=== PATIENT | male | born 1945 | race Caucasian/White ===

== ENCOUNTER 2017-05-02 08:02 | Inpatient (IN) | payer OTHER ==
--- NOTE | 2017-05-02 08:53 | PDOC ---
History of Present Illness - General Chief Complaint: Edema Stated Complaint: SWELLING Time Seen by Provider: 05/02/17 08:51 History Source: Patient Exam Limitations: No Limitations - History of Present Illness Initial Comments: CHIEF COMPLAINT: 71 y/o male who is a poor historian with PMH HTN, A-fib ( uncontrolled) here for swelling to legs. HISTORY OF PRESENT ILLNESS: The patient admits he is supposed to be on 6 medications (he is not sure what for besides HTN and A-fib) but hasn't taken any of them in 6 months because he is a self-proclaimed "bad patient". His niece informs me she thinks it's been more than 6 months. He is supposed to be on Xarelto for A-fib. The patient states for the past 1 week his left LE has been getting swollen and red. The right LE started swelling yesterday and a large bubble formed, which is essentially why he is here. He states he has to stop after every few steps that he walks but denies SOB? He denies f/c, cough, n/v/d, CP, palpitations, hemoptysis, orthopnea, abd pain, back pain, hematuria, dysuria. The patient quit smoking 40 years ago and does not drink. Primary Physician/Clinical Assistant Professor: Dr. Jones (affiliated with [facility]; patient has not seen in > 1 year) Vital signs on arrival are notable for pulse of 108. REVIEW OF SYSTEMS: GENERAL/CONSTITUTIONAL: No fever/chills. No weakness. No weight change. HEAD, EYES, EARS, NOSE AND THROAT: No change in vision. No ear pain or discharge. No sore throat. CARDIOVASCULAR: No chest pain or shortness of breath. RESPIRATORY: No cough, wheezing, or hemoptysis. GASTROINTESTINAL: No abd pain, nausea, vomiting, diarrhea. GENITOURINARY: No dysuria, frequency, or change in urination. MUSCULOSKELETAL: +LE swelling and redness. No neck or back pain. SKIN: No rash or easy bruising. NEUROLOGIC: No headache, vertigo, loss of consciousness, or loss of sensation. PHYSICAL EXAM: GENERAL: The patient is awake, alert, and fully oriented, in no acute distress. He is ambulatory, morbidly obese, gets winded after speaking 1 sentence. HEAD: Normal with no signs of trauma. ENT: Pupils equal, round and reactive to light, extraocular movements intact, sclera anicteric, conjunctiva clear. Neck supple. LUNGS: Clear to auscultation bilaterally. Normal excursion. No respiratory distress or use of accessory muscles. CV: Rapid and irregular, S1/S2, no MRG. Cap refill < 2 sec. ABDOMEN: Soft, obese, non-tender even to deep palpation, no hepatomegaly or splenomegaly, no masses. EXTREMITIES: Normal range of motion. 2+ pitting edema b/l LEs. 7cm bulla of right, medial, distal LE that popped in the ER and is draining clear fluid. Left LE erythematous with petechia 2/3 up to knee. NEUROLOGICAL: Normal speech, normal gait. CN II-XII grossly intact. PSYCH: Normal mood, normal affect. SKIN: Warm, dry, normal turgor, no rashes or lesions noted. Past History - Past Medical History Allergies/Adverse Reactions: Allergies Allergy/AdvReac Type Severity Reaction Status Date / Time No Known Allergies Allergy Verified 05/02/17 08:35 Home Medications: Ambulatory Orders Unobtainable [Unobtainable] 05/02/17 Cardiac Disorders: Yes (atrial fibrillation) HTN: Yes Hypercholesterolemia: Yes - Surgical History Cardiac Surgery: Yes (cardiac stent) - Psycho/Social/Smoking Cessation Hx Anxiety: No Suicidal Ideation: No Smoking History: Former smoker Have you smoked in the past 12 months: No Information on smoking cessation initiated: No Hx Alcohol Use: No Drug/Substance Use Hx: No Substance Use Type: None *Physical Exam - Vital Signs Last Vital Signs Temp Pulse Resp BP Pulse Ox 98.0 F 108 H 18 158/96 99 05/02/17 08:29 05/02/17 08:29 05/02/17 08:29 05/02/17 08:29 05/02/17 08:29 Heart Score/ECG Review - ECG Intrepretation Comment:: Twelve-lead EKG was performed and reviewed by Dr. Tabor. There atrial fibrillation with rapid ventricular response. Impression: Abnormal twelve-lead EKG (no comparison EKGs) ED Treatment Course - LABORATORY CBC & Chemistry Diagram: 05/02/17 09:47 05/02/17 09:47 Medical Decision Making - Medical Decision Making A/P: 71 y/o male, non compliant with all meds for 6+ months c/o LE edema with bulla. Plan is as follows: 1. EKG 2. Cardiac work up CXR IMPRESSION: Degenerative changes with wedging. Large heart. Elevated troponin Elevated BNP Ordered 100mg SQ lovenox, PO Kdur and IV lasix Will admit for full cardiac work up given poor follow up and unknown prior medical history. Microblogged Hospitalist. SPoke with Kelly Bhardwaj who accepts admission to [facility] for Dr. Bundy Spoke with Dr. Patel, who accepts cardiac consult for Dr. Antonio. *DC/Admit/Observation/Transfer Diagnosis at time of Disposition: Elevated troponin CHF (congestive heart failure) Qualifiers: Congestive heart failure type: unspecified congestive heart failure type Congestive heart failure chronicity: unspecified congestive heart failure chronicity Qualified Code(s): I50.9 - Heart failure, unspecified A-fib Qualifiers: Atrial fibrillation type: chronic Qualified Code(s): I48.2 - Chronic atrial fibrillation - Discharge Dispostion Condition at time of disposition: Stable Admit: Yes - Referrals Referrals: Anand Jones [Primary Care Provider] -
--- NOTE | 2017-05-02 09:06 | PDOC ---
*Physical Exam - Vital Signs Last Vital Signs Temp Pulse Resp BP Pulse Ox 98.0 F 108 H 18 158/96 98 05/02/17 08:29 05/02/17 08:29 05/02/17 08:29 05/02/17 08:29 05/02/17 09:00 ED Treatment Course - LABORATORY CBC & Chemistry Diagram: 05/05/17 19:45 05/05/17 09:37 Medical Decision Making - Medical Decision Making 05/02/17 09:06 Pt seen by the Advanced Practice Provider under my direct supervision Ancillary studies reviewed I agree with plan as outlined by the Advanced Practice Provider TATIANNA Vazquez *DC/Admit/Observation/Transfer Diagnosis at time of Disposition: CHF (congestive heart failure), A-fib, Elevated troponin - Discharge Dispostion Condition at time of disposition: Stable
[2017-05-02 10:03] LABS: BASOPHIL 0.6 % (0-2.0); EOSINOPHIL 0.3 % (0-4.5); MCHC 32.2 g/dl (32.0-35.9); MEAN CELL VOLUME 83.8 fl (80-96); MEAN PLT VOLUME 10.4 fl (7.5-11.1); NEUTROPHILS 82.7 % (42.8-82.8); PLATELET COUNT 121 K/MM3 (134-434); RDW 16.2 % (11.9-15.9); WHITE BLOOD COUNT 9.9 K/mm3 (4.0-10.0)
[2017-05-02 10:18] LABS: INR 1.3 (0.82-1.09); PROTHROMBIN TIME (PATIENT) 14.4 SEC (9.98-11.88)
[2017-05-02 10:25] LABS: ALBUMIN 3.3 g/dl (3.4-5.0); ANION GAP 11 (8-16); BILIRUBIN,TOTAL 2.4 mg/dL (0.2-1.0); CALCIUM 8.9 mg/dL (8.5-10.1); CO2 28 mmol/L (21-32); COCKROFT - GAULT 100.15; CREATININE 1.1 mg/dL (0.7-1.3); GLUCOSE,RANDOM 149 mg/dL (74-106); SGOT/AST 58 U/L (15-37); SGPT/ALT 26 U/L (12-78); TOT PROT 6.7 g/dl (6.4-8.2)
[2017-05-02 10:38] LABS: ALK PHOS 95 U/L (45-117)
[2017-05-02 11:00] LABS: TROPONIN I 0.87 ng/ml (0.00-0.05)
[2017-05-02] MEDS ORDERED: ENOXAPARIN NA (PORCINE) 100 MG/1 ML DISP.SYRIN SQ ONE ×2 (11:00→11:16)
[2017-05-02] MEDS ORDERED: POTASSIUM CHLORIDE TABS 20 MEQ TABLET.ER (FP) PO ONE ×2 (11:15→11:16)
[2017-05-02] MEDS ORDERED: FUROSEMIDE 40 MG/4 ML INJECTABLE VIAL IVPUSH ONE (11:16)
[2017-05-02] MEDS ORDERED: FUROSEMIDE 40 MG/4 ML INJECTABLE VIAL ONE (11:18)
[2017-05-02] MEDS ORDERED: ONDANSETRON 4 MG/2 ML VIAL IVPB PRN (11:20)
[2017-05-02] MEDS ORDERED: ACETAMINOPHEN 325 MG TABLET (FP) PO PRN (11:20)
--- NOTE | 2017-05-02 11:25 | HP ---
CHIEF COMPLAINT: Leg swelling PCP/Tank Farm Operator: Dr. Bridges HISTORY OF PRESENT ILLNESS: This is a 71 year old male with a history of Afib ( previously on Xarelto and Lopressor; has not taken them since 2014), HTN, CAD s/ p one stent at [facility] approx 15 yrs ago, and CHF (unknown type) brought in by his niece and sister for evaluation of left leg redness. The patient reports that he has not seen his PCP/centrifugal drier operator in approximately 1.5 yrs and has not taken any medications for about the same period of time. He notes that he has been experiencing worsening dyspnea on exertion and fatigue , limiting his exercise tolerance to about 1/2 block. He denies chest pain. He has not noticed an increase in his lower extremity edema, but has noticed redness on his left leg (which has been worsening over the past 3 days) and a bulla on his right leg which is now weeping fluid. He denies warmth or tenderness in the legs and denies fevers/chills. ER course was notable for: (1) Atrial fibrillation with RVR at 136 (2) CXR: Cardiomegaly (3) Troponin 0.87 (4) BNP elevated at 8213 Recent Travel: None PAST MEDICAL HISTORY: As above. In addition, states was hospitalized at [facility] 1.5 yrs ago for 13 days for unexplained jaundice. PAST SURGICAL HISTORY: Hernia repair 1990 Social History: Single, lives alone, retired [employer] worker. Independent in ADLs, but believes he needs a "change of situation." Smoking: Quit 40 yrs ago Alcohol: None Allergies No Known Allergies Allergy (Verified 05/02/17 08:35) HOME MEDICATIONS: Home Medications Medication Instructions Recorded Unobtainable [Unobtainable] 05/02/17 REVIEW OF SYSTEMS CONSTITUTIONAL: Absent: fever, chills, diaphoresis, generalized weakness, malaise, loss of appetite, fatigue, 40 lb weight gain in one year HEENT: Absent: rhinorrhea, nasal congestion, throat pain, throat swelling, difficulty swallowing, mouth swelling, ear pain, eye pain, visual changes CARDIOVASCULAR: Absent: chest pain, syncope, palpitations, irregular heart rate, lightheadedness RESPIRATORY: Dyspnea on exertion, decreased exercise tolerance Absent: cough, wheezing, stridor, hemoptysis GASTROINTESTINAL: Absent: abdominal pain, abdominal distension, nausea, vomiting, diarrhea, constipation, melena, hematochezia GENITOURINARY: Absent: dysuria, frequency, urgency, hesitancy, hematuria, flank pain, genital pain MUSCULOSKELETAL: Absent: myalgia, arthralgia, joint swelling, back pain, neck pain SKIN: LLE redness, RLE bulla/weeping HEMATOLOGIC/IMMUNOLOGIC: Absent: easy bleeding, easy bruising, lymphadenopathy, frequent infections ENDOCRINE: Absent: unexplained weight gain, unexplained weight loss, heat intolerance, cold intolerance NEUROLOGIC: Absent: headache, focal weakness or paresthesias, dizziness, unsteady gait, seizure, mental status changes, bladder or bowel incontinence PSYCHIATRIC: Anxiety, insomnia PHYSICAL EXAMINATION Vital Signs - 24 hr 05/02/17 05/02/17 08:29 09:00 Temperature 98.0 F Pulse Rate 108 H Respiratory 18 Rate Blood Pressure 158/96 O2 Sat by Pulse 99 98 Oximetry (%) GENERAL: Awake, alert, and fully oriented, in no acute distress. HEAD: Normal with no signs of trauma. EYES: Pupils equal, round and reactive to light, extraocular movements intact, sclera anicteric, conjunctiva clear. No lid lag. EARS, NOSE, THROAT: Ears normal, nares patent, oropharynx clear without exudates. Moist mucous membranes. NECK: Normal range of motion, supple without lymphadenopathy, JVD, or masses. LUNGS: Breath sounds equal, clear to auscultation bilaterally. No wheezes, and no crackles. No accessory muscle use. HEART: Regular rate and rhythm, normal S1 and S2 without murmur, rub or gallop. ABDOMEN: Soft, nontender, left ventral hernia, reducible. MUSCULOSKELETAL: Normal range of motion at all joints. No bony deformities or tenderness. No CVA tenderness. UPPER EXTREMITIES: 2+ pulses, warm, well-perfused. No cyanosis. No clubbing. No peripheral edema. LOWER EXTREMITIES: 3+ pitting LE edema bilaterally. Blanching, macular, erythematous rash from midfoot to knee on left; mild erythema at posterior calf with weeping bulla on right. Tunneling 0.5 x 1 cm wound to plantar aspect of left great toe. Trace DP pulses bilaterally. NEUROLOGICAL: Cranial nerves II-XII intact. Normal speech. PSYCHIATRIC: Cooperative. Good eye contact. Appropriate mood and affect. SKIN: Warm, dry, normal turgor. Laboratory Results - last 24 hr 05/02/17 05/02/17 05/02/17 09:19 09:47 09:47 WBC 9.9 RBC 5.51 Hgb 14.9 Hct 46.2 MCV 83.8 MCHC 32.2 RDW 16.2 H Plt Count 121 L MPV 10.4 Neutrophils % 82.7 Lymphocytes % 7.1 L Monocytes % 9.3 Eosinophils % 0.3 Basophils % 0.6 INR Sodium 137 Potassium 3.3 L Chloride 98 Carbon Dioxide 28 Anion Gap 11 BUN 26 H Creatinine 1.1 Creat Clearance w eGFR > 60 Random Glucose 149 H Calcium 8.9 Total Bilirubin 2.4 H AST 58 H ALT 26 Alkaline Phosphatase 95 Creatine Kinase 281 Creatine Kinase Index 3.2 CK-MB (CK-2) 9.065 H Troponin I 0.87 H* B-Natriuretic Peptide 8213.10 H Total Protein 6.7 Albumin 3.3 L Blood Type O POSITIVE Antibody Screen Negative 05/02/17 09:47 WBC RBC Hgb Hct MCV MCHC RDW Plt Count MPV Neutrophils % Lymphocytes % Monocytes % Eosinophils % Basophils % INR 1.30 H Sodium Potassium Chloride Carbon Dioxide Anion Gap BUN Creatinine Creat Clearance w eGFR Random Glucose Calcium Total Bilirubin AST ALT Alkaline Phosphatase Creatine Kinase Creatine Kinase Index CK-MB (CK-2) Troponin I B-Natriuretic Peptide Total Protein Albumin Blood Type Antibody Screen ASSESSMENT/PLAN: 71 year old male with fatigue, CONNOLLY, LE edema with superimposed cellulitis, and elevated troponin. Problem List - Problem (1) A-fib Assessment/Plan: -Rate now controlled (130 on presentation, but now around 100 at rest) -Resume metoprolol tartrate 50mg bid -Given Lovenox 100mg sq in ED; resume Xarelto 20mg daily this evening Code(s): I48.91 - UNSPECIFIED ATRIAL FIBRILLATION Qualifiers: Atrial fibrillation type: chronic Qualified Code(s): I48.2 - Chronic atrial fibrillation (2) Elevated troponin Assessment/Plan: -No chest pain; patient presented solely for leg complaints -Suspect may be secondary to decompensated CHF, Afib with RVR -Monitor on telemetry -Serial troponins to rule out NM -ASA 162mg now, 81mg daily -Cardiology evaluation Code(s): R74.8 - ABNORMAL LEVELS OF OTHER SERUM ENZYMES (3) Hypertension Assessment/Plan: -Resume Lisinopril 10mg daily, metoprolol tartrate 50mg bid Code(s): I10 - ESSENTIAL (PRIMARY) HYPERTENSION (4) CHF (congestive heart failure) Assessment/Plan: -Unknown type -Lasix 40mg IVP daily -Strict I/O, daily weights -Sodium-controlled diet -Echocardiogram Code(s): I50.9 - HEART FAILURE, UNSPECIFIED Qualifiers: Congestive heart failure type: unspecified congestive heart failure type Congestive heart failure chronicity: unspecified congestive heart failure chronicity Qualified Code(s): I50.9 - Heart failure, unspecified (5) Foot ulcer Assessment/Plan: -Abx as above -Check HgbA1C -Podiatry evaluation Code(s): L97.509 - NON-PRESSURE CHRONIC ULCER OTH PRT UNSP FOOT W UNSP SEVERITY (6) Cellulitis Assessment/Plan: -WBC within normal limits, afebrile -Ceftriaxone + Vancomycin -U/s to r/o DVT -ID evaluation Code(s): L03.90 - CELLULITIS, UNSPECIFIED (7) Thrombocytopenia Assessment/Plan: -Mild, follow Code(s): D69.6 - THROMBOCYTOPENIA, UNSPECIFIED (8) Urinary tract infection Assessment/Plan: -UA with 27 WBCs -Send culture -Ceftriaxone Code(s): N39.0 - URINARY TRACT INFECTION, SITE NOT SPECIFIED (9) Hypokalemia Assessment/Plan: -Repleted -Follow Code(s): E87.6 - HYPOKALEMIA (10) DVT prophylaxis Assessment/Plan: -Therapeutic AC -PT ADDENDUM 4pm: Repeat trop has trended up to 1.19, possibly consistent with NSTEMI. Will keep on Lovenox 1mg/kg sq bid and re-start Xarelto when resolved. Code(s): JTW2122 - Visit type - Emergency Visit Emergency Visit: Yes ED Registration Date: 05/02/17 Care time: The patient presented to the Emergency Department on the above date and was hospitalized for further evaluation of their emergent condition. - New Patient This patient is new to me today: Yes Date on this admission: 05/07/17 - Critical Care Critical Care patient: No
[2017-05-02] MEDS ORDERED: ASPIRIN COATED 81 MG TABLET.EC PO ONE (11:58)
[2017-05-02] MEDS ORDERED: ASPIRIN 81 MG CHEWABLE TABLETS ONE (11:59)
[2017-05-02] MEDS ORDERED: LISINOPRIL 5 MG TABLET (FP) ONE (12:00)
[2017-05-02] MEDS ORDERED: METOPROLOL TARTRATE 25 MG TABLET (FP) ONE ×2 (12:00→22:13)
[2017-05-02] MEDS: METOPROLOL TARTRATE 25 MG TABLET (FP) PO SCH ×2 (12:03→22:24)
[2017-05-02] MEDS: LISINOPRIL 10 MG TABLET (FP) PO SCH (12:04)
[2017-05-02] MEDS ORDERED: VANCOMYCIN 1,500 MG in DEXTROSE 5%-WATER - 250 ML IVPB SCH (12:15)
[2017-05-02] MEDS ORDERED: diphenhydrAMINE HCL 50 MG CAPSULE PO PRN (12:28)
[2017-05-02] MEDS ORDERED: CEFTRIAXONE 50 ML ONE (12:35)
[2017-05-02] MEDS ORDERED: VANCOMYCIN 1 GRAM (PRE-DOCKED) 250 ML IVPB ONE (12:35)
[2017-05-02] MEDS: CEFTRIAXONE 50 ML IVPB SCH (12:42)
[2017-05-02 12:54] LABS: URINE APPEARANCE CLEAR; URINE BILIRUBIN NEGATIVE (NEGATIVE); URINE COLOR YELLOW; URINE GLUCOSE (UA) NEGATIVE (NEGATIVE); URINE KETONE NEGATIVE (NEGATIVE); URINE NITRITE NEGATIVE (NEGATIVE); URINE UROBILINOGEN 4.0 E.U/dl E.U./dl (0.2-1.0)
[2017-05-02] MEDS ORDERED: VANCOMYCIN 1,500 MG in DEXTROSE 5%-WATER - 500 ML IVPB ONE (13:00)
[2017-05-02 13:12] LABS: URINE BLOOD 1+ (NEGATIVE); URINE LEUK ESTERASE 2+ (NEGATIVE); URINE PROTEIN 1+ (NEGATIVE)
[2017-05-02 13:13] LABS: URINE RBC 11 /hpf (0-3); URINE WBC 27 /hpf (3-5)
[2017-05-02 13:14] LABS: URINE MUCUS RARE
--- NOTE | 2017-05-02 15:29 | EKG ---
Test Reason : Blood Pressure : / mmHG Vent. Rate : 136 BPM Atrial Rate : 097 BPM P-R Int : 000 ms QRS Dur : 082 ms QT Int : 334 ms P-R-T Axes : 000 -14 091 degrees QTc Int : 502 ms ATRIAL FIBRILLATION WITH RAPID VENTRICULAR RESPONSE MINIMAL VOLTAGE CRITERIA FOR LVH, MAY BE NORMAL VARIANT T WAVE ABNORMALITY, CONSIDER LATERAL ISCHEMIA ABNORMAL ECG NO PREVIOUS ECGS AVAILABLE Confirmed by DANIELLE MICHELLE, EUGENE ([id number]) on 05/02/2017 3:29:09 PM Referred By: Confirmed By:EUGENE SANTOS MD
[2017-05-02 16:02] LABS: TROPONIN I 1.19 ng/ml (0.00-0.05)
[2017-05-02] MEDS ORDERED: RIVAROXABAN 20 MG TABLET PO SCH (18:00)
[2017-05-02] MEDS ORDERED: ENOXAPARIN NA (PORCINE) 120 MG/0.8 ML DISP.SYRIN SQ SCH (22:00)
[2017-05-02] MEDS ORDERED: diphenhydrAMINE HCL 25 MG CAPSULE (FP) PO ONE (22:13)
[2017-05-02] MEDS ORDERED: ENOXAPARIN NA (PORCINE) 60 MG/0.6 ML DISP.SYRIN SQ ONE (22:14)
[2017-05-02] MEDS: ENOXAPARIN NA (PORCINE) 120 MG/0.8 ML DISP.SYRIN SQ SCH (22:25)
[2017-05-02 22:39] LABS: TROPONIN I 0.98 ng/ml (0.00-0.05)
[2017-05-03 01:42] VITALS: BMI 39.8
[2017-05-03] MEDS ORDERED: diphenhydrAMINE HCL 25 MG CAPSULE (FP) PO PRN (05:52)
[2017-05-03 07:24] LABS: ALBUMIN 3.3 g/dl (3.4-5.0); ANION GAP 10 (8-16); CALCIUM 8.9 mg/dL (8.5-10.1); CO2 31 mmol/L (21-32); GLUCOSE,RANDOM 108 mg/dL (74-106); MAGNESIUM 1.9 mg/dL (1.8-2.4)
[2017-05-03 07:26] LABS: BASOPHIL 0.7 % (0-2.0); EOSINOPHIL 0.6 % (0-4.5); MCH 27.1 pg (25.7-33.7); MCHC 32.1 g/dl (32.0-35.9); MEAN CELL VOLUME 84.5 fl (80-96); MEAN PLT VOLUME 10.3 fl (7.5-11.1); NEUTROPHILS 78.9 % (42.8-82.8); PLATELET COUNT 113 K/MM3 (134-434); RDW 15.8 % (11.9-15.9); WHITE BLOOD COUNT 7.6 K/mm3 (4.0-10.0)
[2017-05-03 07:29] LABS: ALK PHOS 100 U/L (45-117); BILIRUBIN,TOTAL 2.2 mg/dL (0.2-1.0); CHOLESTEROL 149 mg/dL (50-200); COCKROFT - GAULT 100.4; CREATININE 1.1 mg/dL (0.7-1.3); LDL CHOLESTEROL (ONLY SJRH) 107 mg/dL (5-100); SGOT/AST 46 U/L (15-37); SGPT/ALT 27 U/L (12-78); TOT PROT 6.8 g/dl (6.4-8.2)
[2017-05-03 07:56] LABS: INR 1.3 (0.82-1.09); PROTHROMBIN TIME (PATIENT) 14.4 SEC (9.98-11.88)
[2017-05-03] MEDS ORDERED: ASPIRIN COATED 81 MG TABLET.EC PO SCH (10:00)
[2017-05-03] MEDS ORDERED: FUROSEMIDE 40 MG/4 ML INJECTABLE VIAL IVPUSH SCH (10:00)
--- NOTE | 2017-05-03 10:18 | CONSULT ---
Consult - text type - Consultation Consultation Note: Podiatry Consultation: 71 year old pleasant M presents for admission with LLE swelling/redness and a great toe ulcer. Patient also notes perpetual weeping from the RLE. Patient has not been compliant with medication, hasn't taken his medication for over 1 year. Patient denies having diabetes however he is uncertain. Notes the wound on his RLE started on wednesday, does not recall when his L great toe ulcer began. PMHx: AFib on AC (hasn't taken his AC), CAD s/p stent, HTN, CHF Meds: noted ALL: NKMA MARY: Pedal pulses non-palpable, TG wnl, CFT brisk to all toes bilaterally. There is serous weeping R lower leg without signs of infection, nor probing deep. On the left foot here is a plantar hallux ulcer with fibrotic base, hyperkeratotic borders, probes to capsule, no bone exposed, no purulence, no fluctuance, mild periwound erythema, cellulitis to lower leg, no soft tissue crepitus. Venous duplex: negative DVT WBC: 7.6 Imp: 71 year old M with L great toe ulcer 1. Peripheral vascular studies. +/- vascular evaluation 2. L foot XR, bone scan 3. Rx santyl daily to L great toe 4. Will follow. Thanks for the consult. Kristan Braga DPM
[2017-05-03] MEDS: POTASSIUM CHLORIDE TABS 20 MEQ TABLET.ER (FP) PO SCH (10:25)
[2017-05-03] MEDS: LISINOPRIL 10 MG TABLET (FP) PO SCH (10:25)
[2017-05-03] MEDS: CEFTRIAXONE 50 ML IVPB SCH (10:25)
[2017-05-03] MEDS: METOPROLOL TARTRATE 25 MG TABLET (FP) PO SCH (10:25)
[2017-05-03] MEDS: ENOXAPARIN NA (PORCINE) 120 MG/0.8 ML DISP.SYRIN SQ SCH ×2 (10:26→21:33)
[2017-05-03] MEDS: FUROSEMIDE 40 MG/4 ML INJECTABLE VIAL IVPUSH SCH ×2 (10:26→17:27)
--- NOTE | 2017-05-03 10:41 | PN ---
Progress Note (short form) - Note Progress Note: ID Consult dictated Cellulitis L LE Non- healing L great toe ulcer Chronic venous stasis dermatitis Thrombocytopenia Elevated LFTs Afib Await c/s ESR CRP Podiatry evaluation Empiric cefazolin 2gm IVPB q8h
--- NOTE | 2017-05-03 12:16 | PN ---
Physical Exam: SUBJECTIVE: Patient seen and examined at bed side. Patient mentioned that he is anxious and all the tests he is undergoing now is making him anxious and it is overwhelming. He said he noticed redness of the left lower extremity a couple of days ago, found it to be concerning hence came in to the ED. Denies chest pain, sob, cough, palpitation, abdominal pain, nausea or vomiting. Bowel/Bladder habit normal. Sleep/Appetite decreased since illness. OBJECTIVE: Vital Signs Period Temp Pulse Resp BP Sys/Vásquez Pulse Ox Last 24 Hr 98.1 F-99.0 F 84-103 16-20 130-151/100-107 97-98 GENERAL: Elderly male, sitting in a chair, anxious, is awake, alert, and fully oriented, in no acute distress. HEAD: Normal with no signs of trauma. EYES: EOM intact, no pallor or icterus. ENT: Ears normal, moist mucous membranes. NECK: Supple. LUNGS: Breath sounds equal, clear to auscultation bilaterally, no wheezes, no crackles, no accessory muscle use. HEART: Regular rate and rhythm, S1, S2 without murmur, rub or gallop. ABDOMEN: Ventral hernia, Soft, nontender, nondistended, normoactive bowel sounds , no guarding, no rebound, no hepatosplenomegaly, no masses. UPPER EXTREMITIES: 2+ pulses, warm, well-perfused, no edema. LOWER EXTREMITIES: Right: bandage applied around the ankle, refused to open the bandage Left: Erythema below the knee upto the ankle, mildly tender, blisters +, raised temperature, pulses intact + NEUROLOGICAL: No facial droop, Power upper extremity-5/5; lower extremity- 3/5 B /L; Cranial nerves II through XII grossly intact. Normal speech, gait not observed. PSYCH: Normal mood, normal affect. SKIN: Warm, dry, normal turgor, no rashes or lesions noted Laboratory Results - last 24 hr 05/02/17 05/02/17 05/02/17 12:30 15:31 15:31 WBC RBC Hgb Hct MCV MCHC RDW Plt Count MPV Neutrophils % Lymphocytes % Monocytes % Eosinophils % Basophils % INR Sodium Potassium Chloride Carbon Dioxide Anion Gap BUN Creatinine Creat Clearance w eGFR Random Glucose Hemoglobin A1c % Calcium Magnesium Total Bilirubin AST ALT Alkaline Phosphatase Creatine Kinase 251 CK-MB (CK-2) Rel Index 0.0 Troponin I 1.19 H* D Total Protein Albumin Triglycerides Cholesterol Total LDL Cholesterol HDL Cholesterol Urine Color Yellow Urine Appearance Clear Urine pH 5.0 Ur Specific [place] 1.015 Urine Protein 1+ H Urine Glucose (UA) Negative Urine Ketones Negative Urine Blood 1+ H Urine Nitrite Negative Urine Bilirubin Negative Urine Urobilinogen 4.0 e.u/dl Ur Leukocyte Esterase 2+ H Urine RBC 11 Urine WBC 27 Ur Epithelial Cells Few Urine Mucus Rare 05/02/17 05/03/17 05/03/17 21:45 06:20 06:20 WBC 7.6 RBC 5.49 Hgb 14.9 Hct 46.4 MCV 84.5 MCHC 32.1 RDW 15.8 Plt Count 113 L MPV 10.3 Neutrophils % 78.9 Lymphocytes % 9.4 D Monocytes % 10.4 H Eosinophils % 0.6 D Basophils % 0.7 INR 1.30 H Sodium Potassium Chloride Carbon Dioxide Anion Gap BUN Creatinine Creat Clearance w eGFR Random Glucose Hemoglobin A1c % Calcium Magnesium Total Bilirubin AST ALT Alkaline Phosphatase Creatine Kinase 216 CK-MB (CK-2) Rel Index Troponin I 0.98 H* Total Protein Albumin Triglycerides Cholesterol Total LDL Cholesterol HDL Cholesterol Urine Color Urine Appearance Urine pH Ur Specific [place] Urine Protein Urine Glucose (UA) Urine Ketones Urine Blood Urine Nitrite Urine Bilirubin Urine Urobilinogen Ur Leukocyte Esterase Urine RBC Urine WBC Ur Epithelial Cells Urine Mucus 05/03/17 05/03/17 06:20 06:20 WBC RBC Hgb Hct MCV MCHC RDW Plt Count MPV Neutrophils % Lymphocytes % Monocytes % Eosinophils % Basophils % INR Sodium 138 Potassium 3.5 Chloride 97 L Carbon Dioxide 31 Anion Gap 10 BUN 26 H Creatinine 1.1 Creat Clearance w eGFR > 60 Random Glucose 108 H D Hemoglobin A1c % 7.1 H Calcium 8.9 Magnesium 1.9 Total Bilirubin 2.2 H AST 46 H D ALT 27 Alkaline Phosphatase 100 Creatine Kinase CK-MB (CK-2) Rel Index Troponin I Total Protein 6.8 Albumin 3.3 L Triglycerides 97 Cholesterol 149 Total LDL Cholesterol 107 H HDL Cholesterol 33 L Urine Color Urine Appearance Urine pH Ur Specific [place] Urine Protein Urine Glucose (UA) Urine Ketones Urine Blood Urine Nitrite Urine Bilirubin Urine Urobilinogen Ur Leukocyte Esterase Urine RBC Urine WBC Ur Epithelial Cells Urine Mucus Active Medications Generic Name Dose Route Start Last Admin Trade Name Freq PRN Reason Stop Dose Admin Acetaminophen 650 mg 05/02/17 11:20 Tylenol - PO Q6H PRN FEVER OR PAIN Aspirin 81 mg 05/03/17 10:00 05/03/17 10:25 Ecotrin - PO 81 mg DAILY KENDELL Administration Diphenhydramine HCl 25 mg 05/03/17 05:52 Benadryl - PO HS PRN INSOMNIA Enoxaparin Sodium 120 mg 05/02/17 23:00 05/03/17 10:26 Lovenox - SQ 120 mg BID KENDELL Administration Furosemide 40 mg 05/03/17 10:00 05/03/17 10:26 Lasix Injection - IVPUSH 40 mg BIDLASIX KENDELL Administration Cefazolin Sodium/Dextrose 50 mls @ 100 mls/hr 05/03/17 18:00 Ancef 2 Gm Premixed Ivpb - IVPB Q8H-IV KENDELL Lisinopril 10 mg 05/02/17 11:45 05/03/17 10:25 Prinivil PO 10 mg DAILY KENDELL Administration Metoprolol Tartrate 25 mg 05/02/17 11:45 05/03/17 10:25 Lopressor - PO 25 mg BID KENDELL Administration Ondansetron HCl 4 mg 05/02/17 11:20 Zofran Injection IVPB Q6H PRN NAUSEA Potassium Chloride 20 meq 05/03/17 10:00 05/03/17 10:25 K-Dur - PO 20 meq DAILY KENDELL Administration 05/03/2017 Bone scan: Osteomyelitis of the dorsal aspect of the distal left first phalynx. ASSESSMENT/PLAN: Patient is a 71 year old male with past medical history of history of Afib ( previously on Xarelto and Lopressor; has not taken them since 2014), HTN, CAD s/ p one stent at [facility] approx 15 yrs ago, and CHF (unknown type) admitted for evaluation of left lower extremity redness. # Cellulitis of the left lower extremity with osteomyelitis of the left great toe Bone scan done on 05/03/17 showing osteomyeltitis CRP/ESR pending Continue IV Cefazolin 2gm, change as per C/S Collagenase TP Daily-wound Dr. Ruffin consult appreciated ID consult appreciated # Atrial fibrillation-rate uncontrolled On Enoxaparin 120mg BID; Metoprolol 50mg BID Patient was On Xarelto 20mg PO Daily at home (last picked up the medication from [facility] on 2014) # Hypertension-not controlled Lisinopril 10mg stat and increased to 20mg BID # Increased Troponin: Likely NSTEMI Admitted in Tele. Continuous cardiac monitoring Aspirin 325mg PO Daily starting from 05/04/17 Troponins trending down. Would consider stress test as outpatient. Cardiology consult appreciated # Anxiety/ sleep disturbance Xanax 0.25mg PO stat was given. Patient said that he takes Motrin PM every night for sleep. Advised patient not to take it daily as it may cause AGUSTÍN. Benadryl 25mg PO PRN HS Counseling. # Newly diagnosed DM HbA1c 7.1 Insulin sliding scale Finger stick glucose Diabetic diet # CHF Continue Lasix 40mg IV Daily Strict I's and O's Daily Weight Echo in am # Hypokalemia K-Dur 20 mEq daily # Thrombocytopenia Monitor platelets as patient is on Lovenox # FEN Not on IV fluids Electrolytes Diabetic/sodium controlled diet # Prophylaxis For DVT: On Enoxaparin For GI: Not indicated # Code Status: Full Code # Dispo: Admitted in Tele. Duration of stay unknown. Called pharmacy- patient is non compliant. Illness, Investigation and Plan of care explained to the patient. He verbalized understanding. Case discussed with Dr. Vizcarra. Visit type - Emergency Visit Emergency Visit: Yes ED Registration Date: 05/02/17 Care time: The patient presented to the Emergency Department on the above date and was hospitalized for further evaluation of their emergent condition. - New Patient This patient is new to me today: Yes Date on this admission: 05/03/17 - Critical Care Critical Care patient: No
--- NOTE | 2017-05-03 12:54 | CONS ---
DATE OF CONSULTATION: HISTORY: The patient is a 71-year-old male evaluated for left lower extremity cellulitis and nonhealing left great toe ulcer. He was admitted to the hospital on May 02, 2017 with a [id number] increasing left lower extremity cellulitis. He had developed a bullous lesion of the right lower extremity, which prompted him to seek medical attention. He was evaluated in the emergency room where he was found to have cellulitis of the left lower extremity. He was also noted to be in atrial fibrillation with rapid ventricular response. He was transferred to the telemetry unit. A Doppler exam was performed on the lower extremities and was negative for DVT. He was empirically treated with vancomycin and ceftriaxone for cellulitis. The patient reports worsening lower extremity edema. He denies any traumatic injury to the lower extremities. He denies any insect or animal bites or scratches. The patient has a history of atrial fibrillation and coronary artery disease. He admits to nonadherence to his medications and medical follow up for approximately 1 year. He denies prior history of serious soft tissue infection requiring hospitalization or history of MRSA. PAST MEDICAL HISTORY: Positive for atrial fibrillation, hypertension, coronary artery disease status post coronary artery stent. ALLERGIES: No known allergies. MEDICATIONS: Not obtained. The patient admits to noncompliance with medications. SOCIAL HISTORY: He is single. He resides at home. He is a former smoker. Former [employer] employee. Denies any recent travel or pet exposure. REVIEW OF SYSTEMS: Neurologic: No loss of consciousness, seizure activity, focal weakness. Cardiac: Negative chest pain or palpitations. Respiratory: Negative cough or sputum production. Gastrointestinal: Negative vomiting or diarrhea. Genitourinary: Negative for urinary tract infection. LABORATORY DATA: White blood cell count 7.6, hematocrit 46.4, platelet count 113, BUN 26, creatinine 1.1, total bilirubin 2.2, alkaline phosphatase 100, AST 46. Urinalysis 27 white cells. Chest x-ray negative for acute infiltrate. Blood cultures are pending. PHYSICAL EXAMINATION: General: He is awake and alert. He is in no acute distress. He is not acutely toxic appearing. Vital Signs: Temperature 99, blood pressure 151/107, pulse 103, irregular respirations 16 per minute. HEENT: Sclerae anicteric. Heart: Sounds S1, S2. Irregular. Respiratory: Lungs clear bilaterally. No rales, rhonchi, or wheezing. Abdomen: Obese, soft. No tenderness elicited. No mass, rebound, or rigidity. There is a ventral hernia present. Extremities: Have 3+ lower extremity edema bilaterally. There is evidence of chronic venostasis dermatitis lower extremities bilaterally. Examination of the left lower extremity, there is a dry ulceration present over the distal aspect of the left great toe. There is no purulent drainage, no surrounding erythema. There is erythema involving the dorsum of the left great toe extending to the distal left lower extremity. There is a maculopapular rash present involving the pretibial area extending to the knee. There is no lymphangitic streaking. No fluctuance or crepitus. IMPRESSION: 1. Cellulitis of the left lower extremity. 2. Nonhealing left great toe ulcer. 3. Chronic venostasis dermatitis. 4. Thrombocytopenia. 5. Elevated liver enzymes. 6. Atrial fibrillation. PLAN: Await blood culture results. Obtain sedimentation rate and C-reactive protein. Podiatry evaluation. Empiric antibiotic coverage with cefazolin 2 g IV piggyback every 8 hours. Elevation and anastomosis. Case discussed with Podiatry. Nonhealing left great toe ulcer does not appear to be infected; however, may have been the portal or entry for bacteria causing left lower extremity cellulitis. According to Podiatry, the wound does not probe to the bone making chronic osteomyelitis less likely. A bone scan has been ordered. Continue local wound care. We will follow. Thank you for the kind referral. ADONIS ROSALES M.D. [id number]
--- NOTE | 2017-05-03 14:21 | CON.CARD ---
Consult Consult Specialty:: Cardiology - History of Present Illness History of Present Illness: HISTORY OF PRESENT ILLNESS: The patient admits he is supposed to be on 6 medications (he is not sure what for besides HTN and A-fib) but hasn't taken any of them in 6 months because he is a self-proclaimed "bad patient". His niece informs me she thinks it's been more than 6 months. He is supposed to be on Xarelto for A-fib. The patient states for the past 1 week his left LE has been getting swollen and red. The right LE started swelling yesterday and a large bubble formed, which is essentially why he is here. He states he has to stop after every few steps that he walks but denies SOB? He denies f/c, cough, n/v/d, CP, palpitations, hemoptysis, orthopnea, abd pain, back pain, hematuria, dysuria. The patient quit smoking 40 years ago and does not drink. Primary Physician/Money Examiner: Dr. Jones (affiliated with [facility]; patient has not seen in > 1 year) [facility] non complience [address] more than 1 year ago stent many years ago - History Source History Provided By: Patient, Medical Record Limitations to Obtaining History: Poor Historian - Past Medical History Cardio/Vascular: Yes: AFIB, CAD, CHF - Alcohol/Substance Use Hx Alcohol Use: No - Smoking History Smoking history: Former smoker Have you smoked in the past 12 months: No Home Medications - Allergies Allergies/Adverse Reactions: Allergies Allergy/AdvReac Type Severity Reaction Status Date / Time No Known Allergies Allergy Verified 05/02/17 08:35 - Home Medications Home Medications: Ambulatory Orders Lisinopril 10 mg PO DAILY 05/02/17 Metoprolol Tartrate [Lopressor -] 50 mg PO BID 05/02/17 Rivaroxaban [Xarelto -] 20 mg PO DAILY 05/02/17 Review of Systems - Review of Systems Constitutional: reports: No Symptoms Eyes: reports: No Symptoms HENT: reports: No Symptoms Neck: reports: No Symptoms Cardiovascular: reports: Edema Respiratory: reports: SOB Gastrointestinal: reports: No Symptoms Genitourinary: reports: No Symptoms Breasts: reports: No Symptoms Reported Musculoskeletal: reports: No Symptoms Integumentary: reports: No Symptoms Neurological: reports: No Symptoms Endocrine: reports: No Symptoms Hematology/Lymphatic: reports: No Symptoms Psychiatric: reports: No Symptoms Vital Signs: Vital Signs Temperature 98.5 F 05/03/17 10:25 Pulse Rate 114 H 05/03/17 10:25 Respiratory Rate 18 05/03/17 10:25 Blood Pressure 153/93 05/03/17 10:25 O2 Sat by Pulse Oximetry (%) 97 05/03/17 10:25 Constitutional: Yes: Well Nourished, No Distress, Calm Eyes: Yes: WNL, Conjunctiva Clear, EOM Intact HENT: Yes: WNL, Atraumatic, Normocephalic Neck: Yes: WNL, Supple, Trachea Midline Respiratory: Yes: WNL, Regular, CTA Bilaterally Gastrointestinal: Yes: WNL, Normal Bowel Sounds Renal/: Yes: WNL Cardiovascular: Yes: WNL, Regular Rate and Rhythm Musculoskeletal: Yes: WNL Extremities: Yes: Erythema Edema: Yes Integumentary: Yes: WNL Neurological: Yes: WNL, Alert, Oriented ...Motor Strength: WNL Psychiatric: Yes: WNL, Alert, Oriented - Other Data Labs, Other Data: CBC, BMP 05/03/17 06:20 05/03/17 06:20 INR, PTT INR 1.30 (0.82-1.09) H 05/03/17 06:20 Troponin, BNP 05/02/17 05/02/17 15:31 21:45 Troponin I 1.19 H* D 0.98 H* Troponin, BNP 05/02/17 05/02/17 15:31 21:45 Troponin I 1.19 H* D 0.98 H* Laboratory Tests 05/02/17 05/02/17 05/02/17 09:19 09:47 09:47 WBC 9.9 RBC 5.51 Hgb 14.9 Hct 46.2 MCV 83.8 MCHC 32.2 RDW 16.2 H Plt Count 121 L MPV 10.4 Neutrophils % 82.7 Lymphocytes % 7.1 L Monocytes % 9.3 Eosinophils % 0.3 Basophils % 0.6 INR Sodium 137 Potassium 3.3 L Chloride 98 Carbon Dioxide 28 Anion Gap 11 BUN 26 H Creatinine 1.1 Creat Clearance w eGFR > 60 Random Glucose 149 H Hemoglobin A1c % Calcium 8.9 Magnesium Total Bilirubin 2.4 H AST 58 H ALT 26 Alkaline Phosphatase 95 Creatine Kinase 281 Creatine Kinase Index 3.2 CK-MB (CK-2) 9.065 H CK-MB (CK-2) Rel Index Troponin I 0.87 H* B-Natriuretic Peptide 8213.10 H Total Protein 6.7 Albumin 3.3 L Triglycerides Cholesterol Total LDL Cholesterol HDL Cholesterol Urine Color Urine Appearance Urine pH Ur Specific [place] Urine Protein Urine Glucose (UA) Urine Ketones Urine Blood Urine Nitrite Urine Bilirubin Urine Urobilinogen Ur Leukocyte Esterase Urine RBC Urine WBC Ur Epithelial Cells Urine Mucus Blood Type O POSITIVE Antibody Screen Negative 05/02/17 05/02/17 05/02/17 09:47 09:47 12:30 WBC RBC Hgb Hct MCV MCHC RDW Plt Count MPV Neutrophils % Lymphocytes % Monocytes % Eosinophils % Basophils % INR 1.30 H Sodium Potassium Chloride Carbon Dioxide Anion Gap BUN Creatinine Creat Clearance w eGFR Random Glucose Hemoglobin A1c % Calcium Magnesium Total Bilirubin AST ALT Alkaline Phosphatase Creatine Kinase Creatine Kinase Index CK-MB (CK-2) CK-MB (CK-2) Rel Index Cancelled Troponin I B-Natriuretic Peptide Total Protein Albumin Triglycerides Cholesterol Total LDL Cholesterol HDL Cholesterol Urine Color Yellow Urine Appearance Clear Urine pH 5.0 Ur Specific [place] 1.015 Urine Protein 1+ H Urine Glucose (UA) Negative Urine Ketones Negative Urine Blood 1+ H Urine Nitrite Negative Urine Bilirubin Negative Urine Urobilinogen 4.0 e.u/dl Ur Leukocyte Esterase 2+ H Urine RBC 11 Urine WBC 27 Ur Epithelial Cells Few Urine Mucus Rare Blood Type Antibody Screen 05/02/17 05/02/17 05/02/17 15:31 15:31 21:45 WBC RBC Hgb Hct MCV MCHC RDW Plt Count MPV Neutrophils % Lymphocytes % Monocytes % Eosinophils % Basophils % INR Sodium Potassium Chloride Carbon Dioxide Anion Gap BUN Creatinine Creat Clearance w eGFR Random Glucose Hemoglobin A1c % Calcium Magnesium Total Bilirubin AST ALT Alkaline Phosphatase Creatine Kinase 251 216 Creatine Kinase Index CK-MB (CK-2) CK-MB (CK-2) Rel Index 0.0 Troponin I 1.19 H* D 0.98 H* B-Natriuretic Peptide Total Protein Albumin Triglycerides Cholesterol Total LDL Cholesterol HDL Cholesterol Urine Color Urine Appearance Urine pH Ur Specific [place] Urine Protein Urine Glucose (UA) Urine Ketones Urine Blood Urine Nitrite Urine Bilirubin Urine Urobilinogen Ur Leukocyte Esterase Urine RBC Urine WBC Ur Epithelial Cells Urine Mucus Blood Type Antibody Screen 05/03/17 05/03/1717 06:20 06:20 06:20 WBC 7.6 RBC 5.49 Hgb 14.9 Hct 46.4 MCV 84.5 MCHC 32.1 RDW 15.8 Plt Count 113 L MPV 10.3 Neutrophils % 78.9 Lymphocytes % 9.4 D Monocytes % 10.4 H Eosinophils % 0.6 D Basophils % 0.7 INR 1.30 H Sodium 138 Potassium 3.5 Chloride 97 L Carbon Dioxide 31 Anion Gap 10 BUN 26 H Creatinine 1.1 Creat Clearance w eGFR > 60 Random Glucose 108 H D Hemoglobin A1c % Calcium 8.9 Magnesium 1.9 Total Bilirubin 2.2 H AST 46 H D ALT 27 Alkaline Phosphatase 100 Creatine Kinase Creatine Kinase Index CK-MB (CK-2) CK-MB (CK-2) Rel Index Troponin I B-Natriuretic Peptide Total Protein 6.8 Albumin 3.3 L Triglycerides 97 Cholesterol 149 Total LDL Cholesterol 107 H HDL Cholesterol 33 L Urine Color Urine Appearance Urine pH Ur Specific [place] Urine Protein Urine Glucose (UA) Urine Ketones Urine Blood Urine Nitrite Urine Bilirubin Urine Urobilinogen Ur Leukocyte Esterase Urine RBC Urine WBC Ur Epithelial Cells Urine Mucus Blood Type Antibody Screen 05/03/17 06:20 WBC RBC Hgb Hct MCV MCHC RDW Plt Count MPV Neutrophils % Lymphocytes % Monocytes % Eosinophils % Basophils % INR Sodium Potassium Chloride Carbon Dioxide Anion Gap BUN Creatinine Creat Clearance w eGFR Random Glucose Hemoglobin A1c % 7.1 H Calcium Magnesium Total Bilirubin AST ALT Alkaline Phosphatase Creatine Kinase Creatine Kinase Index CK-MB (CK-2) CK-MB (CK-2) Rel Index Troponin I B-Natriuretic Peptide Total Protein Albumin Triglycerides Cholesterol Total LDL Cholesterol HDL Cholesterol Urine Color Urine Appearance Urine pH Ur Specific [place] Urine Protein Urine Glucose (UA) Urine Ketones Urine Blood Urine Nitrite Urine Bilirubin Urine Urobilinogen Ur Leukocyte Esterase Urine RBC Urine WBC Ur Epithelial Cells Urine Mucus Blood Type Antibody Screen Imaging - Results Chest X-ray: Image Reviewed (cm no infiltrates) EKG: Image Reviewed (af rep abn) Problem List - Problems (1) A-fib Code(s): I48.91 - UNSPECIFIED ATRIAL FIBRILLATION Qualifiers: Atrial fibrillation type: chronic Qualified Code(s): I48.2 - Chronic atrial fibrillation (2) CHF (congestive heart failure) Code(s): I50.9 - HEART FAILURE, UNSPECIFIED Qualifiers: Congestive heart failure type: unspecified congestive heart failure type Congestive heart failure chronicity: unspecified congestive heart failure chronicity Qualified Code(s): I50.9 - Heart failure, unspecified (3) Cellulitis Code(s): L03.90 - CELLULITIS, UNSPECIFIED (4) DVT prophylaxis Code(s): QGJ7055 - (5) Elevated troponin Code(s): R74.8 - ABNORMAL LEVELS OF OTHER SERUM ENZYMES (6) Foot ulcer Code(s): L97.509 - NON-PRESSURE CHRONIC ULCER OTH PRT UNSP FOOT W UNSP SEVERITY (7) Hypertension Code(s): I10 - ESSENTIAL (PRIMARY) HYPERTENSION (8) Hypokalemia Code(s): E87.6 - HYPOKALEMIA (9) Thrombocytopenia Code(s): D69.6 - THROMBOCYTOPENIA, UNSPECIFIED (10) Urinary tract infection Code(s): N39.0 - URINARY TRACT INFECTION, SITE NOT SPECIFIED Assessment/Plan chf acute ?nonstemi af htn dm cellulitis non-complience plan iv lasix asa BB echo iv lasix will need mibi st when stable
[2017-05-03] MEDS ORDERED: ALPRAZolam 0.25 MG TABLET PO ONE ×2 (15:55)
[2017-05-03] MEDS: METOPROLOL TARTRATE 50 MG TABLET (FP) PO SCH ×2 (16:01→21:33)
[2017-05-03] MEDS: VANCOMYCIN 1,500 MG in DEXTROSE 5%-WATER - 500 ML IVPB SCH (17:24)
[2017-05-03] MEDS: CEFAZOLIN 2 GM/D5W 50 ML IVPB SCH (17:29)
[2017-05-03] MEDS ORDERED: LISINOPRIL 10 MG TABLET (FP) PO ONE (18:09)
--- NOTE | 2017-05-03 18:11 | PN ---
Teaching Attending Note Name of Resident: Richa Forde ATTENDING PHYSICIAN STATEMENT I saw and evaluated the patient. I reviewed the resident's note and discussed the case with the resident. I agree with the resident's findings and plan as documented. SUBJECTIVE: Patient is comfortable with no acute distress. Came in for having lower extremity cellulitis. OBJECTIVE: Vital Signs Temperature 97.8 F 05/03/17 17:56 Pulse Rate 99 H 05/03/17 17:56 Respiratory Rate 20 05/03/17 17:56 Blood Pressure 168/108 05/03/17 17:56 O2 Sat by Pulse Oximetry (%) 97 05/03/17 10:25 CBCD WBC 7.6 K/mm3 (4.0-10.0) 05/03/17 06:20 RBC 5.49 M/mm3 (4.00-5.60) 05/03/17 06:20 Hgb 14.9 GM/dL (11.7-16.9) 05/03/17 06:20 Hct 46.4 % (35.4-49) 05/03/17 06:20 MCV 84.5 fl (80-96) 05/03/17 06:20 MCHC 32.1 g/dl (32.0-35.9) 05/03/17 06:20 RDW 15.8 % (11.9-15.9) 05/03/17 06:20 Plt Count 113 K/MM3 (134-434) L 05/03/17 06:20 MPV 10.3 fl (7.5-11.1) 05/03/17 06:20 CMP Sodium 138 mmol/L (136-145) 05/03/17 06:20 Potassium 3.5 mmol/L (3.5-5.1) 05/03/17 06:20 Chloride 97 mmol/L (98-107) L 05/03/17 06:20 Carbon Dioxide 31 mmol/L (21-32) 05/03/17 06:20 Anion Gap 10 (8-16) 05/03/17 06:20 BUN 26 mg/dL (7-18) H 05/03/17 06:20 Creatinine 1.1 mg/dL (0.7-1.3) 05/03/17 06:20 Creat Clearance w eGFR > 60 (>60) 05/03/17 06:20 Random Glucose 108 mg/dL (74-106) H D 05/03/17 06:20 Calcium 8.9 mg/dL (8.5-10.1) 05/03/17 06:20 Total Bilirubin 2.2 mg/dL (0.2-1.0) H 05/03/17 06:20 AST 46 U/L (15-37) H D 05/03/17 06:20 ALT 27 U/L (12-78) 05/03/17 06:20 Alkaline Phosphatase 100 U/L (45-117) 05/03/17 06:20 Total Protein 6.8 g/dl (6.4-8.2) 05/03/17 06:20 Albumin 3.3 g/dl (3.4-5.0) L 05/03/17 06:20 CARDIAC ENZYMES Creatine Kinase 216 IU/L (39-308) 05/02/17 21:45 Troponin I 0.98 ng/ml (0.00-0.05) H* 05/02/17 21:45 Current Medications Generic Name Dose Route Start Last Admin Trade Name Freq PRN Reason Stop Dose Admin Acetaminophen 650 mg 05/02/17 11:20 Tylenol - PO Q6H PRN FEVER OR PAIN Aspirin 325 mg 05/04/17 10:00 Ecotrin - PO DAILY KENDELL Collagenase 1 applic 05/04/17 10:00 Santyl - TP DAILY KENDELL Diphenhydramine HCl 25 mg 05/03/17 05:52 Benadryl - PO HS PRN INSOMNIA Enoxaparin Sodium 120 mg 05/02/17 23:00 05/03/17 10:26 Lovenox - SQ 120 mg BID KENDELL Administration Furosemide 40 mg 05/03/17 10:00 05/03/17 17:27 Lasix Injection - IVPUSH 40 mg BIDLASIX KENDELL Administration Cefazolin Sodium/Dextrose 50 mls @ 100 mls/hr 05/03/17 18:00 05/03/17 17:29 Ancef 2 Gm Premixed Ivpb - IVPB 100 mls/hr Q8H-IV KENDELL Administration Lisinopril 20 mg 05/03/17 22:00 Prinivil PO BID KENDELL Lisinopril 10 mg 05/03/17 18:09 Prinivil PO 05/03/17 18:10 ONCE ONE Metoprolol Tartrate 50 mg 05/03/17 16:00 05/03/17 16:01 Lopressor - PO 50 mg BID KENDELL Administration Ondansetron HCl 4 mg 05/02/17 11:20 Zofran Injection IVPB Q6H PRN NAUSEA Potassium Chloride 20 meq 05/03/17 10:00 05/03/17 10:25 K-Dur - PO 20 meq DAILY KENDELL Administration Home Medications Medication Instructions Recorded Lisinopril 10 mg PO DAILY 05/02/17 Metoprolol Tartrate [Lopressor -] 50 mg PO BID 05/02/17 Rivaroxaban [Xarelto -] 20 mg PO DAILY 05/02/17 Laboratory Tests 05/02/17 05/02/17 05/02/17 09:47 15:31 21:45 Potassium BUN Total Bilirubin AST Troponin I 0.87 H* 1.19 H* D 0.98 H* Total LDL Cholesterol HDL Cholesterol 05/03/17 06:20 Potassium 3.5 BUN 26 H Total Bilirubin 2.2 H AST 46 H D Troponin I Total LDL Cholesterol 107 H HDL Cholesterol 33 L PE: per resident's note 05/03/2017 Bone scan: Osteomyelitis of the dorsal aspect of the distal left first phalynx. ASSESSMENT AND PLAN: This is a 71 year old male with a history of Afib (previously on Xarelto and Lopressor; has not taken them since 2014), HTN, CAD s/p one stent at [facility] approx 15 yrs ago, and CHF (unknown type) brought in by his niece and sister for evaluation of left leg redness. 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 # Acute Foot ulcer patient was seen by [facility] ordered L foot bone scan was found to have Osteomyelitis ;On IV antibiotic as per ID on ancef till the sensitivity is back . On Rx santyl daily to Left great toe daily. s/p Vancomycin and Rocephin in ED. US of LE negative for DVT. # Elevated troponin with possible NSTEMI on Tele, ASA 81mg daily, Lovenox 120mg Sq Bid Cardiology evaluation Dr. Mejia # A-fib Rate now controlled (130 on presentation, but now 99 HR ), continue metoprolol tartrate 50mg bid -Given Lovenox 120mg sq bid # Hypertension Uncontrolled will increase the dose of Lisinopril 20mg po bid and metoprolol tartrate 50mg bid , on Lasix 40mg IV bid # Acute diastolic CHF on IV Lasix 40mg BId with Strict I/O, daily weights, Sodium-controlled diet, Echocardiogram # Acute mild Thrombocytopenia, monitor since patient is on Lovenox # Acute Urinary tract infection ,UA with 27 WBCs, Pending culture, on Cefazolin IV continue # Hypokalemia given Kdur, will place the patient on Potassium supplement daily DVT prophylaxis : Lovenox
[2017-05-03] MEDS ORDERED: INSULIN (NOVOLOG) ASPART 100 UNITS/ML 10ML VIAL ONE (21:27)
[2017-05-03] MEDS ORDERED: PT OWN MED DRAWER 7, Y5N ONE (21:28)
[2017-05-03] MEDS: INSULIN SLIDING SCALE (NOVOLOG) 1 VIAL SQ SCH (21:33)
[2017-05-03] MEDS ORDERED: LISINOPRIL 10 MG TABLET (FP) PO SCH (22:00)
[2017-05-04] MEDS: CEFAZOLIN 2 GM/D5W 50 ML IVPB SCH ×3 (01:03→18:10)
[2017-05-04] MEDS: VANCOMYCIN 1,500 MG in DEXTROSE 5%-WATER - 500 ML IVPB SCH (06:16)
[2017-05-04] MEDS: FUROSEMIDE 40 MG/4 ML INJECTABLE VIAL IVPUSH SCH (06:24)
[2017-05-04] MEDS: INSULIN SLIDING SCALE (NOVOLOG) 1 VIAL SQ SCH ×4 (06:24→21:32)
[2017-05-04 06:50] LABS: MCH 27.1 pg (25.7-33.7); MCHC 32.4 g/dl (32.0-35.9); MEAN CELL VOLUME 83.7 fl (80-96); MEAN PLT VOLUME 10.3 fl (7.5-11.1); PLATELET COUNT 121 K/MM3 (134-434); RDW 15.6 % (11.9-15.9); WHITE BLOOD COUNT 11.1 K/mm3 (4.0-10.0)
[2017-05-04 07:18] LABS: CALCIUM 8.9 mg/dL (8.5-10.1)
[2017-05-04 07:25] LABS: BILIRUBIN,TOTAL 1.7 mg/dL (0.2-1.0); COCKROFT - GAULT 77.42; CREATININE 1.4 mg/dL (0.7-1.3); TOT PROT 6.5 g/dl (6.4-8.2); TROPONIN I 0.42 ng/ml (0.00-0.05)
--- NOTE | 2017-05-04 09:02 | PN ---
Physical Exam: SUBJECTIVE: Patient seen and examined at bed side this morning. Patient said that he is feeling anxious and sad. He forgot about the detailed conversation done yesterday regarding his medical condition and further management. Patient mentions that he took valium (few pills given by his brother) last week that helped him sleep. No suicidal ideation at this time. Denies chest pain, sob, cough, palpitation, abdominal pain, nausea or vomiting. OBJECTIVE: Vital Signs Period Temp Pulse Resp BP Sys/Vásquez Pulse Ox Last 24 Hr 97.6 F-98.5 F 91-130 18-22 147-168/68-114 97-99 GENERAL: Elderly male, sitting in a chair, anxious, is awake, alert, and fully oriented, in no acute distress. HEAD: Normal with no signs of trauma. EYES: EOM intact, no pallor or icterus. ENT: Ears normal, moist mucous membranes. NECK: Supple. LUNGS: Breath sounds equal, clear to auscultation bilaterally, no wheezes, no crackles, no accessory muscle use. HEART: Regular rate and rhythm, S1, S2 without murmur, rub or gallop. ABDOMEN: Ventral hernia, Soft, nontender, nondistended, normoactive bowel sounds , no guarding, no rebound, no hepatosplenomegaly, no masses. UPPER EXTREMITIES: 2+ pulses, warm, well-perfused, no edema. LOWER EXTREMITIES: Right: bandage applied around the ankle, refused to open the bandage Left: Erythema below the knee upto the ankle, mildly tender, blisters +, raised temperature, pulses intact + NEUROLOGICAL: No facial droop, Power upper extremity-5/5; lower extremity- 3/5 B /L; Cranial nerves II through XII grossly intact. Normal speech, gait not observed. PSYCH: Normal mood, normal affect. SKIN: Warm, dry, normal turgor, no rashes or lesions noted Laboratory Results - last 24 hr 05/03/17 05/03/17 05/03/17 06:20 21:08 22:51 WBC RBC Hgb Hct MCV MCHC RDW Plt Count MPV Sodium Potassium Chloride Carbon Dioxide Anion Gap BUN Creatinine Creat Clearance w eGFR POC Glucometer 178 160 Random Glucose Hemoglobin A1c % 7.1 H Calcium Total Bilirubin AST ALT Alkaline Phosphatase Creatine Kinase Troponin I C-Reactive Protein Total Protein Albumin Triglycerides Cholesterol 0605/04/17 05/04/17 04:57 05:35 05:35 WBC RBC Hgb Hct MCV MCHC RDW Plt Count MPV Sodium 139 Potassium 3.6 Chloride 97 L Carbon Dioxide 27 Anion Gap 15 BUN 30 H Creatinine 1.4 H D Creat Clearance w eGFR 49.68 POC Glucometer 162 Random Glucose 159 H D Hemoglobin A1c % Calcium 8.9 Total Bilirubin 1.7 H D AST 35 D ALT 24 Alkaline Phosphatase 94 Creatine Kinase 177 Troponin I 0.42 H D C-Reactive Protein Cancelled Total Protein 6.5 Albumin 3.0 L Triglycerides 84 Cholesterol 154 05/04/17 05/04/17 05:35 05:35 WBC 11.1 H D RBC 5.47 Hgb 14.8 Hct 45.8 MCV 83.7 MCHC 32.4 RDW 15.6 Plt Count 121 L MPV 10.3 Sodium Potassium Chloride Carbon Dioxide Anion Gap BUN Creatinine Creat Clearance w eGFR POC Glucometer Random Glucose Hemoglobin A1c % Calcium Total Bilirubin AST ALT Alkaline Phosphatase Creatine Kinase Cancelled Troponin I Cancelled C-Reactive Protein Total Protein Albumin Triglycerides Cholesterol Active Medications Generic Name Dose Route Start Last Admin Trade Name Freq PRN Reason Stop Dose Admin Acetaminophen 650 mg 05/02/17 11:20 Tylenol - PO Q6H PRN FEVER OR PAIN Aspirin 325 mg 05/04/17 10:00 Ecotrin - PO DAILY KENDELL Collagenase 1 applic 05/04/17 10:00 Santyl - TP DAILY KENDELL Diphenhydramine HCl 25 mg 05/03/17 05:52 05/03/17 21:35 Benadryl - PO 25 mg HS PRN Administration INSOMNIA Enoxaparin Sodium 120 mg 05/02/17 23:00 05/03/17 21:33 Lovenox - SQ 120 mg BID KENDELL Administration Furosemide 40 mg 05/03/17 10:00 05/04/17 06:24 Lasix Injection - IVPUSH 40 mg BIDLASIX KENDELL Administration Cefazolin Sodium/Dextrose 50 mls @ 100 mls/hr 05/03/17 18:00 05/04/17 01:03 Ancef 2 Gm Premixed Ivpb - IVPB 100 mls/hr Q8H-IV KENDELL Administration Insulin Aspart 1 vial 05/03/17 22:00 05/04/17 06:24 Novolog Vial Sliding Scale - SQ 2 units ACHS KENDELL Administration Protocol Lisinopril 20 mg 05/03/17 22:00 05/03/17 21:33 Prinivil PO 20 mg BID KENDELL Administration Metoprolol Tartrate 50 mg 05/03/17 16:00 05/03/17 21:33 Lopressor - PO 50 mg BID KENDELL Administration Ondansetron HCl 4 mg 05/02/17 11:20 Zofran Injection IVPB Q6H PRN NAUSEA Potassium Chloride 20 meq 05/03/17 10:00 05/03/17 10:25 K-Dur - PO 20 meq DAILY KENDELL Administration ASSESSMENT/PLAN: Patient is a 71 year old male with past medical history of history of Afib ( previously on Xarelto and Lopressor; has not taken them since 2014), HTN, CAD s/ p one stent at [facility] approx 15 yrs ago, and CHF (unknown type) admitted for evaluation of left lower extremity redness. # Cellulitis of the left lower extremity with osteomyelitis of the left great toe Bone scan done on 05/03/17 showing osteomyeltitis CRP/ESR pending Continue IV Cefazolin 2gm, change as per C/S Wound culture pending Collagenase TP Daily-wound Once patient is stable, would consider bone biopsy. # AGUSTÍN likely post renal cause-obstructive vs intrarenal Creatinine 1.1-->1.4 Patient takes Motrin PM every night for sleep, advised to avoid it. Urine electrolytes, Renal ultrasound ordered Veras catheter placed, bladder scan > 900 mls Renal consult appreciated # Atrial fibrillation-rate uncontrolled On Enoxaparin 120mg BID; Metoprolol 50mg BID Patient was On Xarelto 20mg PO Daily at home (last picked up the medication from [facility] on 2014) # Hypertension-not controlled Lisinopril 10mg PO BID # R/o Thyroid disorder TSH, Free T3, Free T4 ordered. # Increased Troponin: Likely NSTEMI Admitted in Tele. Continuous cardiac monitoring Aspirin 325mg PO Daily starting from 05/04/17 Troponins trending down. Would consider stress test as outpatient. Cardiology consult appreciated # Anxiety/ sleep disturbance Patient said that he takes Motrin PM every night for sleep. Advised patient not to take it daily as it may cause AGUSTÍN. Benadryl 25mg PO PRN HS Counseling. # Newly diagnosed DM HbA1c 7.1 Insulin sliding scale Finger stick glucose Diabetic diet # CHF Continue Lasix 40mg IV Daily Strict I's and O's Daily Weight Echo in am # Hypokalemia K-Dur 20 mEq daily # Thrombocytopenia Monitor platelets as patient is on Lovenox # FEN Not on IV fluids Electrolytes Diabetic/sodium controlled diet # Prophylaxis For DVT: On Enoxaparin For GI: Not indicated # Code Status: Full Code # Dispo: Admitted in Tele. Duration of stay unknown. Called pharmacy- patient is non compliant. Illness, Investigation and Plan of care explained to the patient. He verbalized understanding. Case discussed with Dr. Vizcarra. Visit type - Emergency Visit Emergency Visit: Yes ED Registration Date: 05/02/17 Care time: The patient presented to the Emergency Department on the above date and was hospitalized for further evaluation of their emergent condition. - New Patient This patient is new to me today: No - Critical Care Critical Care patient: No
[2017-05-04] MEDS ORDERED: FUROSEMIDE 40 MG/4 ML INJECTABLE VIAL IVPUSH SCH (10:00)
--- NOTE | 2017-05-04 10:15 | PN ---
Progress Note, Physician History of Present Illness: HISTORY OF PRESENT ILLNESS: The patient admits he is supposed to be on 6 medications (he is not sure what for besides HTN and A-fib) but hasn't taken any of them in 6 months because he is a self-proclaimed "bad patient". His niece informs me she thinks it's been more than 6 months. He is supposed to be on Xarelto for A-fib. The patient states for the past 1 week his left LE has been getting swollen and red. The right LE started swelling yesterday and a large bubble formed, which is essentially why he is here. He states he has to stop after every few steps that he walks but denies SOB? He denies f/c, cough, n/v/d, CP, palpitations, hemoptysis, orthopnea, abd pain, back pain, hematuria, dysuria. The patient quit smoking 40 years ago and does not drink. Primary Physician/Manager Pest: Dr. Jones (affiliated with [place]; patient has not seen in > 1 year) pm non complience mibi st more than 1 year ago stent many years ago - Current Medication List Current Medications: Active Medications Acetaminophen (Tylenol -) 650 mg PO Q6H PRN PRN Reason: FEVER OR PAIN Aspirin (Ecotrin -) 325 mg PO DAILY [facility] Collagenase (Santyl -) 1 applic TP DAILY [facility] Diphenhydramine HCl (Benadryl -) 25 mg PO HS PRN PRN Reason: INSOMNIA Last Admin: 05/03/17 21:35 Dose: 25 mg Enoxaparin Sodium (Lovenox -) 120 mg SQ BID [facility] Last Admin: 05/03/17 21:33 Dose: 120 mg Furosemide (Lasix Injection -) 40 mg IVPUSH DAILY [facility] Cefazolin Sodium/Dextrose (Ancef 2 Gm Premixed Ivpb -) 50 mls @ 100 mls/hr IVPB Q8H-IV KENDELL Last Admin: 05/04/17 01:03 Dose: 100 mls/hr Insulin Aspart (Novolog Vial Sliding Scale -) 1 vial SQ ACHS KENDELL PRN Reason: Protocol Last Admin: 05/04/17 06:24 Dose: 2 units Lisinopril (Prinivil) 10 mg PO BID [facility] Metoprolol Tartrate (Lopressor -) 50 mg PO BID [facility] Last Admin: 05/03/17 21:33 Dose: 50 mg Ondansetron HCl (Zofran Injection) 4 mg IVPB Q6H PRN PRN Reason: NAUSEA Potassium Chloride (K-Dur -) 20 meq PO DAILY [facility] Last Admin: 05/03/17 10:25 Dose: 20 meq - Objective Vital Signs: Vital Signs Temperature 97.8 F 05/04/17 06:00 Pulse Rate 91 H 05/04/17 06:00 Respiratory Rate 20 05/04/17 06:00 Blood Pressure 158/97 05/04/17 06:00 O2 Sat by Pulse Oximetry (%) 99 05/03/17 21:00 Eyes: Yes: WNL, Conjunctiva Clear, EOM Intact HENT: Yes: WNL, Atraumatic, Normocephalic Neck: Yes: WNL, Supple, Trachea Midline Cardiovascular: Yes: WNL, Pulse Irregular, S1, S2 Respiratory: Yes: WNL, Regular, CTA Bilaterally Gastrointestinal: Yes: WNL, Normal Bowel Sounds Genitourinary: Yes: WNL Musculoskeletal: Yes: WNL Extremities: Yes: Erythema Edema: Yes Integumentary: Yes: WNL Neurological: Yes: WNL, Alert, Oriented ...Motor Strength: WNL Psychiatric: Yes: WNL Labs: CBC, BMP 05/04/17 05:35 05/04/17 05:35 INR, PTT INR 1.30 (0.82-1.09) H 05/03/17 06:20 Problem List - Problems (1) A-fib Code(s): I48.91 - UNSPECIFIED ATRIAL FIBRILLATION Qualifiers: Atrial fibrillation type: chronic Qualified Code(s): I48.2 - Chronic atrial fibrillation (2) CHF (congestive heart failure) Code(s): I50.9 - HEART FAILURE, UNSPECIFIED Qualifiers: Congestive heart failure type: unspecified congestive heart failure type Congestive heart failure chronicity: unspecified congestive heart failure chronicity Qualified Code(s): I50.9 - Heart failure, unspecified (3) Cellulitis Code(s): L03.90 - CELLULITIS, UNSPECIFIED (4) DVT prophylaxis Code(s): [id number] - (5) Elevated troponin Code(s): R74.8 - ABNORMAL LEVELS OF OTHER SERUM ENZYMES (6) Foot ulcer Code(s): L97.509 - NON-PRESSURE CHRONIC ULCER OTH PRT UNSP FOOT W UNSP SEVERITY (7) Hypertension Code(s): I10 - ESSENTIAL (PRIMARY) HYPERTENSION (8) Hypokalemia Code(s): E87.6 - HYPOKALEMIA (9) Thrombocytopenia Code(s): D69.6 - THROMBOCYTOPENIA, UNSPECIFIED (10) Urinary tract infection Code(s): N39.0 - URINARY TRACT INFECTION, SITE NOT SPECIFIED Assessment/Plan chf acute ?nonstemi af htn dm cellulitis non-complience plan asa BB echo iv lasix will need mibi st when stable
[2017-05-04] MEDS: ASPIRIN 325 MG ENTERIC COATED TABLET (FP) PO SCH (11:47)
[2017-05-04] MEDS: LISINOPRIL 10 MG TABLET (FP) PO SCH ×2 (11:47→23:02)
[2017-05-04] MEDS: POTASSIUM CHLORIDE TABS 20 MEQ TABLET.ER (FP) PO SCH (11:47)
[2017-05-04] MEDS: METOPROLOL TARTRATE 50 MG TABLET (FP) PO SCH ×2 (11:48→23:02)
[2017-05-04] MEDS: ENOXAPARIN NA (PORCINE) 120 MG/0.8 ML DISP.SYRIN SQ SCH ×2 (11:48→23:02)
[2017-05-04] MEDS: COLLAGENASE CLOSTRIDIUM HIST. 30 GRAMS TUBE TP SCH (11:55)
--- NOTE | 2017-05-04 13:35 | PN ---
Progress Note, Physician History of Present Illness: OOB in chair No c/o leg pain No fever/ chills Afebrile WBC slightly increased No drainage from great toe ulcer reported - Current Medication List Current Medications: Active Medications Acetaminophen (Tylenol -) 650 mg PO Q6H PRN PRN Reason: FEVER OR PAIN Aspirin (Ecotrin -) 325 mg PO DAILY REPLACED BY [facility] Last Admin: 05/04/17 11:47 Dose: 325 mg Collagenase (Santyl -) 1 applic TP DAILY [facility]PL[facility] BY [facility] Last Admin: 05/04/17 11:55 Dose: 1 applic Diazepam (Valium -) 2 mg PO HS ONE Stop: 05/04/17 22:01 Enoxaparin Sodium (Lovenox -) 120 mg SQ BID [facility]PLACED BY [facility] Last Admin: 05/04/17 11:48 Dose: 120 mg Furosemide (Lasix Injection -) 40 mg IVPUSH DAILY [facility]PL[facility] BY [facility] Last Admin: 05/04/17 11:48 Dose: 40 mg Cefazolin Sodium/Dextrose (Ancef 2 Gm Premixed Ivpb -) 50 mls @ 100 mls/hr IVPB Q8H-IV REPLACED BY [facility] Last Admin: 05/04/17 11:47 Dose: 100 mls/hr Insulin Aspart (Novolog Vial Sliding Scale -) 1 vial SQ ACHS REPLACED BY [facility] PRN Reason: Protocol Last Admin: 05/04/17 13:17 Dose: 4 units Lisinopril (Prinivil) 10 mg PO BID REPLACED BY [facility] Last Admin: 05/04/17 11:47 Dose: 10 mg Metoprolol Tartrate (Lopressor -) 50 mg PO BID REPLACED BY [facility] Last Admin: 05/04/17 11:48 Dose: 50 mg Ondansetron HCl (Zofran Injection) 4 mg IVPB Q6H PRN PRN Reason: NAUSEA Potassium Chloride (K-Dur -) 20 meq PO DAILY REPLACED BY [facility] Last Admin: 05/04/17 11:47 Dose: 20 meq - Objective Vital Signs: Vital Signs Temperature 98 F 05/04/17 11:55 Pulse Rate 116 H 05/04/17 11:55 Respiratory Rate 20 05/04/17 11:55 Blood Pressure 182/115 05/04/17 11:55 O2 Sat by Pulse Oximetry (%) 99 05/03/17 21:00 Constitutional: Yes: No Distress, Obese Cardiovascular: Yes: Regular Rate and Rhythm, S1, S2 Respiratory: Yes: CTA Bilaterally Gastrointestinal: Yes: Normal Bowel Sounds, Soft, Abdomen, Obese. No: Tenderness Extremities: Yes: Other (decreased L LE erythema/ warmth + dry great toe ulcer No drainage) Edema: Yes Labs: CBC, BMP 05/04/17 05:35 05/04/17 05:35 INR, PTT INR 1.30 (0.82-1.09) H 05/03/17 06:20 Assessment/Plan Cellulitis L LE- improved Dry L great toe ulcer + osteomyelitis by bone scan Chronic venous stasis dermatitis Leukocytosis Thrombocytopenia Azotemia Elevated LFTs- improved Continue cefazolin Wound c/s Elevation
--- NOTE | 2017-05-04 14:42 | CONSULT ---
Consultation: REQUESTING PROVIDER: CONSULT REQUEST: We have been asked to medically evaluate this patient for ( nephro). HISTORY OF PRESENT ILLNESS: This is a 71 year old male with a history of Afib ( previously on Xarelto and Lopressor; has not taken them since 2014), HTN, CAD s/ p one stent at [facility] approx 15 yrs ago, CHF, DM, HTN, BPH came to hospital due to increase in swelling in b/l lower limb and erythema. Patient also states that he has noticed worsening dyspnea, now able to walk 1/2 block. He denies chest pain. He has not noticed an increase in his lower extremity edema. Also reports increase frequency of urination, thin stream, take longer time to urinate. Denies blood and burning in urine. Also reports gain in around 40 pounds in 2 years. Patient had stopped taking his meds around 2 years ago. Denies chest pain, palpitations, burning micturation, fever and chills. In hospital found to have afib, chf, cellulitis with osteomilitis, tana Patient is on IV lasix, lisinopril. Now sitting comfortably in chair, states swelling in leg has decreased, Denies sob, chest pain, palpitations. REVIEW OF SYSTEMS: CONSTITUTIONAL: Absent: fever, chills, diaphoresis, HEENT: Absent: rhinorrhea, nasal congestion, throat pain, CARDIOVASCULAR: Absent: chest pain, syncope, palpitations, irregular heart rate, RESPIRATORY: Absent: cough, shortness of breath, dyspnea with exertion, GASTROINTESTINAL: Absent: abdominal pain, abdominal distension, nausea, vomiting, diarrhea, constipation, GENITOURINARY: Absent: dysuria, frequency, urgency, hesitancy, hematuria, flank pain, genital pain PHYSICAL EXAMINATION Vital Signs - 24 hr 05/03/17 05/03/17 05/03/17 15:02 15:21 17:56 Temperature 98 F 97.8 F Pulse Rate 130 H 99 H Respiratory 22 20 Rate Blood Pressure 154/90 168/108 O2 Sat by Pulse Oximetry (%) 05/03/17 05/04/17 05/04/17 21:00 01:00 06:00 Temperature 97.8 F 97.6 F 97.8 F Pulse Rate 110 H 93 H 91 H Respiratory 20 18 20 Rate Blood Pressure 147/114 156/68 158/97 O2 Sat by Pulse 99 Oximetry (%) 05/04/17 11:55 Temperature 98 F Pulse Rate 116 H Respiratory 20 Rate Blood Pressure 182/115 O2 Sat by Pulse Oximetry (%) GENERAL: Awake, alert, and fully oriented, in no acute distress. HEAD: Normal with no signs of trauma. EARS, NOSE, THROAT: Moist mucous membranes. NECK:no lymphadenopathy, JVD, or masses. LUNGS: Breath sounds equal, clear to auscultation bilaterally. No wheezes, and no crackles. No accessory muscle use. HEART: s1s2 normal, irregular ABDOMEN: Soft, nontender, not distended, normoactive bowel sounds, no guarding, no rebound, no masses. ventral hernia present, bladder palpable UPPER EXTREMITIES: 2+ pulses, warm, well-perfused. No cyanosis. LOWER EXTREMITIES:cold to touch, . No calf tenderness. No peripheral edema ++, erythema present on left LE, dressing present on RLE, rash present in groin and left LE SKIN: rash in LLE and groin Laboratory Results - last 24 hr 05/03/17 05/03/17 05/04/17 21:08 22:51 04:57 WBC RBC Hgb Hct MCV MCHC RDW Plt Count MPV ESR Sodium Potassium Chloride Carbon Dioxide Anion Gap BUN Creatinine Creat Clearance w eGFR POC Glucometer 178 160 162 Random Glucose Calcium Total Bilirubin AST ALT Alkaline Phosphatase Creatine Kinase Creatine Kinase Index CK-MB (CK-2) CK-MB (CK-2) Rel Index Troponin I C-Reactive Protein Total Protein Albumin Triglycerides Cholesterol Total LDL Cholesterol HDL Cholesterol 05/04/17 05/04/17 05/04/17 05:35 05:35 05:35 WBC RBC Hgb Hct MCV MCHC RDW Plt Count MPV ESR 8 Sodium 139 Potassium 3.6 Chloride 97 L Carbon Dioxide 27 Anion Gap 15 BUN 30 H Creatinine 1.4 H D Creat Clearance w eGFR 49.68 POC Glucometer Random Glucose 159 H D Calcium 8.9 Total Bilirubin 1.7 H D AST 35 D ALT 24 Alkaline Phosphatase 94 Creatine Kinase 177 Creatine Kinase Index 2.4 CK-MB (CK-2) 7.737 H CK-MB (CK-2) Rel Index Troponin I 0.42 H D C-Reactive Protein Cancelled 5.0 H Total Protein 6.5 Albumin 3.0 L Triglycerides 84 Cholesterol 154 Total LDL Cholesterol 109 H HDL Cholesterol 33 L 05/04/17 05/04/1717 05:35 05:35 05:35 WBC 11.1 H D RBC 5.47 Hgb 14.8 Hct 45.8 MCV 83.7 MCHC 32.4 RDW 15.6 Plt Count 121 L MPV 10.3 ESR Sodium Potassium Chloride Carbon Dioxide Anion Gap BUN Creatinine Creat Clearance w eGFR POC Glucometer Random Glucose Calcium Total Bilirubin AST ALT Alkaline Phosphatase Creatine Kinase Cancelled Creatine Kinase Index CK-MB (CK-2) CK-MB (CK-2) Rel Index Cancelled Troponin I Cancelled C-Reactive Protein Total Protein Albumin Triglycerides Cholesterol Total LDL Cholesterol HDL Cholesterol 05/04/17 12:49 WBC RBC Hgb Hct MCV MCHC RDW Plt Count MPV ESR Sodium Potassium Chloride Carbon Dioxide Anion Gap BUN Creatinine Creat Clearance w eGFR POC Glucometer 201.77911 Random Glucose Calcium Total Bilirubin AST ALT Alkaline Phosphatase Creatine Kinase Creatine Kinase Index CK-MB (CK-2) CK-MB (CK-2) Rel Index Troponin I C-Reactive Protein Total Protein Albumin Triglycerides Cholesterol Total LDL Cholesterol HDL Cholesterol Active Medications Generic Name Dose Route Start Last Admin Trade Name Freq PRN Reason Stop Dose Admin Acetaminophen 650 mg 05/02/17 11:20 Tylenol - PO Q6H PRN FEVER OR PAIN Aspirin 325 mg 05/04/17 10:00 05/04/17 11:47 Ecotrin - PO 325 mg DAILY KENDELL Administration Collagenase 1 applic 05/04/17 10:00 05/04/17 11:55 Santyl - TP 1 applic DAILY KENDELL Administration Diazepam 2 mg 05/04/17 22:00 Valium - PO 05/04/17 22:01 HS ONE Enoxaparin Sodium 120 mg 05/02/17 23:00 05/04/17 11:48 Lovenox - SQ 120 mg BID KENEDLL Administration Furosemide 40 mg 05/04/17 10:00 05/04/17 11:48 Lasix Injection - IVPUSH 40 mg DAILY KENDELL Administration Cefazolin Sodium/Dextrose 50 mls @ 100 mls/hr 05/03/17 18:00 05/04/17 11:47 Ancef 2 Gm Premixed Ivpb - IVPB 100 mls/hr Q8H-IV KENDELL Administration Insulin Aspart 1 vial 05/03/17 22:00 05/04/17 13:17 Novolog Vial Sliding Scale - SQ 4 units ACHS KENDELL Administration Protocol Lisinopril 10 mg 05/04/17 09:31 05/04/17 11:47 Prinivil PO 10 mg BID KENDELL Administration Metoprolol Tartrate 50 mg 05/03/17 16:00 05/04/17 11:48 Lopressor - PO 50 mg BID KENDELL Administration Ondansetron HCl 4 mg 05/02/17 11:20 Zofran Injection IVPB Q6H PRN NAUSEA Potassium Chloride 20 meq 05/03/17 10:00 05/04/17 11:47 K-Dur - PO 20 meq DAILY KENDELL Administration ASSESSMENT/PLAN: Dispo: We will continue to follow the patient. Thank you for this consultative opportunity. Osteomyelitis and cellulitis Elevated Troponin A fib Hypertension Uncontrolled Acute diastolic CHF Thrombocytopenia, UTI Urinary retention. BPH DM Plan ua, urine electrolytes, renal and bladder scan. Bladder scan shows> 900 ml urine, Insert Veras cath. Patient could have increase in Cr due to obstructive uropathy. Monitor Renal function. Monitor electrolyte. Monitor and control blood sugar. Monitor and control HTN. On IV lasix for CHF Avoid nephrotoic drugs. Consider urology consult for obstructive uropathy. Work up for protein urea can be done as outpatient. Visit type - Emergency Visit Emergency Visit: Yes ED Registration Date: 05/02/17 Care time: The patient presented to the Emergency Department on the above date and was hospitalized for further evaluation of their emergent condition. - New Patient This patient is new to me today: Yes Date on this admission: 05/04/17 - Critical Care Critical Care patient: No
--- NOTE | 2017-05-04 16:38 | PN ---
Teaching Attending Note Name of Resident: Franklyn Srivastava (Nephrology) ATTENDING PHYSICIAN STATEMENT I saw and evaluated the patient. I reviewed the resident's note and discussed the case with the resident. I agree with the resident's findings and plan as documented. Nephrology Consult Please see consult completed by resident. Pt originally presented to the ER with lower extremity edema and discomfort. I was called to evaluate him for elevated creatinine. He is not compliant with meds and has not taken any of his medications for over a year. pmhx: Afib (previously on Xarelto and Lopressor; has not taken them since 2014) , HTN, CAD s/p one stent at [facility] approx 15 yrs ago, CHF, DM, HTN, BPH nkda social denies Current Active Problems A-fib (Acute) CHF (congestive heart failure) (Acute) Cellulitis (Acute) DVT prophylaxis (Acute) Elevated troponin (Acute) Foot ulcer (Acute) Hypertension (Acute) Hypokalemia (Acute) Thrombocytopenia (Acute) Urinary tract infection (Acute) Current Medications Generic Name Dose Route Start Last Admin Trade Name Constantineq PRN Reason Stop Dose Admin Acetaminophen 650 mg 05/02/17 11:20 Tylenol - PO Q6H PRN FEVER OR PAIN Aspirin 325 mg 05/04/17 10:00 05/04/17 11:47 Ecotrin - PO 325 mg DAILY KENDELL Administration Collagenase 1 applic 05/04/17 10:00 05/04/17 11:55 Santyl - TP 1 applic DAILY KENDELL Administration Diazepam 2 mg 05/04/17 22:00 Valium - PO 05/04/17 22:01 HS ONE Enoxaparin Sodium 120 mg 05/02/17 23:00 05/04/17 11:48 Lovenox - SQ 120 mg BID KENDELL Administration Furosemide 40 mg 05/04/17 10:00 05/04/17 11:48 Lasix Injection - IVPUSH 40 mg DAILY KENDELL Administration Cefazolin Sodium/Dextrose 50 mls @ 100 mls/hr 05/03/17 18:00 05/04/17 11:47 Ancef 2 Gm Premixed Ivpb - IVPB 100 mls/hr Q8H-IV KENDELL Administration Insulin Aspart 1 vial 05/03/17 22:00 05/04/17 13:17 Novolog Vial Sliding Scale - SQ 4 units ACHS KENDELL Administration Protocol Lisinopril 10 mg 05/04/17 09:31 05/04/17 11:47 Prinivil PO 10 mg BID KENDELL Administration Metoprolol Tartrate 50 mg 05/03/17 16:00 05/04/17 11:48 Lopressor - PO 50 mg BID KENDELL Administration Nystatin 1 applic 05/04/17 22:00 Nystop Powder - TP BID KENDELL Ondansetron HCl 4 mg 05/02/17 11:20 Zofran Injection IVPB Q6H PRN NAUSEA Potassium Chloride 20 meq 05/03/17 10:00 05/04/17 11:47 K-Dur - PO 20 meq DAILY KENDELL Administration Laboratory Tests 05/04/17 05:35 Sodium 139 Potassium 3.6 Chloride 97 L Carbon Dioxide 27 Laboratory Tests 05/02/17 05/03/17 05/04/17 09:47 06:20 05:35 Creatinine 1.1 1.1 1.4 H D Last Vital Signs Temp Pulse Resp BP Pulse Ox 98.1 F 95 H 22 147/105 99 05/04/17 14:03 05/04/17 14:03 05/04/17 14:03 05/04/17 14:03 05/03/17 21:00 cardio s1s2 irreg pulm clear GI soft, ventral hernia gu bladder distention, rash in inguinal area ext trace edema, cellulitis, erythema neuro awake and oriented Impression 1. AGUSTÍN likely from obstruction 2. a-fib 3. HTN 4. cellulitis 5. obstructive uropathy - 900 cc on bladder scan 6. BPH 7. CHF 8. DM Plan - place andujar catheter - repeat labs in am - urology evaluation - discussed with resident - will follow Dr Teague
--- NOTE | 2017-05-04 16:56 | PN ---
Teaching Attending Note Name of Resident: Richa Forde ATTENDING PHYSICIAN STATEMENT I saw and evaluated the patient. I reviewed the resident's note and discussed the case with the resident. I agree with the resident's findings and plan as documented. SUBJECTIVE: Patient is comfortable with no acute distress, no shortness of breath, no nausea or vomiting. OBJECTIVE: Vital Signs Temperature 98.1 F 05/04/17 14:03 Pulse Rate 95 H 05/04/17 14:03 Respiratory Rate 22 05/04/17 14:03 Blood Pressure 147/105 05/04/17 14:03 O2 Sat by Pulse Oximetry (%) 99 05/03/17 21:00 CBCD WBC 11.1 K/mm3 (4.0-10.0) H D 05/04/17 05:35 RBC 5.47 M/mm3 (4.00-5.60) 05/04/17 05:35 Hgb 14.8 GM/dL (11.7-16.9) 05/04/17 05:35 Hct 45.8 % (35.4-49) 05/04/17 05:35 MCV 83.7 fl (80-96) 05/04/17 05:35 MCHC 32.4 g/dl (32.0-35.9) 05/04/17 05:35 RDW 15.6 % (11.9-15.9) 05/04/17 05:35 Plt Count 121 K/MM3 (134-434) L 05/04/17 05:35 MPV 10.3 fl (7.5-11.1) 05/04/17 05:35 CMP Sodium 139 mmol/L (136-145) 05/04/17 05:35 Potassium 3.6 mmol/L (3.5-5.1) 05/04/17 05:35 Chloride 97 mmol/L (98-107) L 05/04/17 05:35 Carbon Dioxide 27 mmol/L (21-32) 05/04/17 05:35 Anion Gap 15 (8-16) 05/04/17 05:35 BUN 30 mg/dL (7-18) H 05/04/17 05:35 Creatinine 1.4 mg/dL (0.7-1.3) H D 05/04/17 05:35 Creat Clearance w eGFR 49.68 (>60) 05/04/17 05:35 Random Glucose 159 mg/dL (74-106) H D 05/04/17 05:35 Calcium 8.9 mg/dL (8.5-10.1) 05/04/17 05:35 Total Bilirubin 1.7 mg/dL (0.2-1.0) H D 05/04/17 05:35 AST 35 U/L (15-37) D 05/04/17 05:35 ALT 24 U/L (12-78) 05/04/17 05:35 Alkaline Phosphatase 94 U/L (45-117) 05/04/17 05:35 Total Protein 6.5 g/dl (6.4-8.2) 05/04/17 05:35 Albumin 3.0 g/dl (3.4-5.0) L 05/04/17 05:35 CARDIAC ENZYMES Creatine Kinase 177 IU/L (39-308) 05/04/17 05:35 Troponin I 0.42 ng/ml (0.00-0.05) H D 05/04/17 05:35 Home Medications Medication Instructions Recorded Lisinopril 10 mg PO DAILY 05/02/17 Metoprolol Tartrate [Lopressor -] 50 mg PO BID 05/02/17 Rivaroxaban [Xarelto -] 20 mg PO DAILY 05/02/17 Current Medications Generic Name Dose Route Start Last Admin Trade Name Freq PRN Reason Stop Dose Admin Acetaminophen 650 mg 05/02/17 11:20 Tylenol - PO Q6H PRN FEVER OR PAIN Aspirin 325 mg 05/04/17 10:00 05/04/17 11:47 Ecotrin - PO 325 mg DAILY KENDELL Administration Collagenase 1 applic 05/04/17 10:00 05/04/17 11:55 Santyl - TP 1 applic DAILY KENDELL Administration Diazepam 2 mg 05/04/17 22:00 Valium - PO 05/04/17 22:01 HS ONE Enoxaparin Sodium 120 mg 05/02/17 23:00 05/04/17 11:48 Lovenox - SQ 120 mg BID KENDELL Administration Furosemide 40 mg 05/04/17 10:00 05/04/17 11:48 Lasix Injection - IVPUSH 40 mg DAILY KENDELL Administration Cefazolin Sodium/Dextrose 50 mls @ 100 mls/hr 05/03/17 18:00 05/04/17 11:47 Ancef 2 Gm Premixed Ivpb - IVPB 100 mls/hr Q8H-IV KENDELL Administration Insulin Aspart 1 vial 05/03/17 22:00 05/04/17 13:17 Novolog Vial Sliding Scale - SQ 4 units ACHS KENDELL Administration Protocol Lisinopril 10 mg 05/04/17 09:31 05/04/17 11:47 Prinivil PO 10 mg BID KENDELL Administration Metoprolol Tartrate 50 mg 05/03/17 16:00 05/04/17 11:48 Lopressor - PO 50 mg BID KENDELL Administration Nystatin 1 applic 05/04/17 22:00 Nystop Powder - TP BID KENDELL Ondansetron HCl 4 mg 05/02/17 11:20 Zofran Injection IVPB Q6H PRN NAUSEA Potassium Chloride 20 meq 05/03/17 10:00 05/04/17 11:47 K-Dur - PO 20 meq DAILY KENDELL Administration Home Medications Medication Instructions Recorded Lisinopril 10 mg PO DAILY 05/02/17 Metoprolol Tartrate [Lopressor -] 50 mg PO BID 05/02/17 Rivaroxaban [Xarelto -] 20 mg PO DAILY 05/02/17 PE: per resident's note 05/03/2017 Bone scan: Osteomyelitis of the dorsal aspect of the distal left first phalynx. ASSESSMENT AND PLAN: This is a 71 year old male with a history of Afib (previously on Xarelto and Lopressor; has not taken them since 2014), HTN, CAD s/p one stent at [facility] approx 15 yrs ago, and CHF (unknown type) brought in by his niece and sister for evaluation of left leg redness. The patient reports that he has not seen his PCP/cash accounting clerk in approximately 1.5 yrs and has not taken any medications for about the same period of time. # Acute renal failure due to urinary retention, 900cc retention, Unable to advance the andujar catheter. Urology consult # Acute Osteomyelitis of L foot ; ( bone scan: positive for Osteomyelitis) On IV antibiotic as per ID ;on IV Ancef till the sensitivity is back . On Rx santyl daily to Left great toe daily. s/p Vancomycin and Rocephin in ED. US of LE negative for DVT. # Elevated troponin with possible NSTEMI on Tele, ASA 81mg daily, Lovenox 120mg Sq Bid Lead Game Designer Dr. Mejia appreciated. # A-fib Rate now controlled (130 on presentation, but now 95 HR ), continue metoprolol tartrate 50mg bid Given Lovenox 120mg sq bid # Hypertension Uncontrolled will increase the dose of Lisinopril 10mg po bid and metoprolol tartrate 50mg bid , on Lasix 40mg IV daily # Acute diastolic CHF on IV Lasix 40mg daily, with Strict I/O, daily weights, Sodium-controlled diet, Echocardiogram # Acute mild Thrombocytopenia, monitor since patient is on Lovenox # Acute Urinary tract infection ,UA with 27 WBCs, Pending culture, on Cefazolin IV continue # Hypokalemia given Kdur, will place the patient on Potassium supplement daily DVT prophylaxis : Lovenox
--- NOTE | 2017-05-04 17:26 | PN ---
Progress Note (short form) - Note Progress Note: Podiatry F/u: Seen and evaluated at bedside, NAD. Pain controlled, denies F/V/N/C/SOB/CP. Afebrile, VSS. MARY: Pedal pulses non-palpable, TG wnl, CFT brisk to all toes. There is a distal tuft ulcer L great toe with fibrotic base, no purulence, hyperkeratotic borders , no fluctuance, no soft tissue crepitus, no ascending cellulitis, no signs of active infection. WBC: 11.1 Wound Cx: pending Bone Scan: (+) osteomyelitis distal phalanx hallux Imp: 71 year old M with L great toe ulcer + osteomyelitis 1. IV abx per ID 2. F/u wound cx 3. Vascular studies pending 4. Once vascular studies obtained and pt stable, may need bone biopsy Kristan Braga DPM
[2017-05-04] MEDS ORDERED: diazePAM 2 MG TABLET PO ONE (22:00)
--- NOTE | 2017-05-04 22:21 | HOSP ---
Subjective - Review of Symptoms Subjective: Urinary retention 18 Fr Caudet attempted, but unable to pass, pt. still with minimal bleeding from andujar attempt by day staff(on [facility]) Urology consulted Physical Examination Vital Signs: Vital Signs Temperature 98.6 F 05/04/17 18:33 Pulse Rate 98 H 05/04/17 18:33 Respiratory Rate 22 05/04/17 20:53 Blood Pressure 130/104 05/04/17 18:33 O2 Sat by Pulse Oximetry (%) 95 05/04/17 20:53 Labs: CBC, BMP 05/04/17 05:35 05/04/17 05:35
--- NOTE | 2017-05-04 22:29 | HOSP ---
Subjective - Review of Symptoms Events since last encounter: 18 malawian caudet pass attempted by both me and Dr. Muñoz to relieve urinary retention. Despite advancement of 18 malawian caudet with minimal bleeding into urethra no urine was passed. Will need urology to place andujar especially since pt is on lovenox. Physical Examination Vital Signs: Vital Signs Temperature 98.6 F 05/04/17 18:33 Pulse Rate 98 H 05/04/17 18:33 Respiratory Rate 22 05/04/17 20:53 Blood Pressure 130/104 05/04/17 18:33 O2 Sat by Pulse Oximetry (%) 95 05/04/17 20:53 Labs: CBC, BMP 05/04/17 05:35 05/04/17 05:35 Visit type - Emergency Visit Emergency Visit: Yes ED Registration Date: 05/02/17 Care time: The patient presented to the Emergency Department on the above date and was hospitalized for further evaluation of their emergent condition. - New Patient This patient is new to me today: Yes Date on this admission: 05/04/17 - Critical Care Critical Care patient: No
[2017-05-04] MEDS: NYSTATIN POWDER 100,000 UNITS/GM - 15 GM TOPICAL POWDER TP SCH (23:02)
[2017-05-04] MEDS ORDERED: PT OWN MED DRAWER 7, Y5N ONE (23:35)
[2017-05-05] MEDS: CEFAZOLIN 2 GM/D5W 50 ML IVPB SCH ×3 (01:22→17:00)
[2017-05-05] MEDS: INSULIN SLIDING SCALE (NOVOLOG) 1 VIAL SQ SCH ×4 (06:00→23:21)
[2017-05-05] MEDS ORDERED: METOPROLOL TARTRATE 5 MG/5 ML VIAL IVPUSH ONE (09:17)
[2017-05-05 10:10] LABS: MCH 27.4 pg (25.7-33.7); MCHC 32.3 g/dl (32.0-35.9); MEAN CELL VOLUME 84.7 fl (80-96); MEAN PLT VOLUME 10.1 fl (7.5-11.1); PLATELET COUNT 173 K/MM3 (134-434); WHITE BLOOD COUNT 17.8 K/mm3 (4.0-10.0)
--- NOTE | 2017-05-05 10:28 | CONSULT ---
Consult Consult Specialty:: urology Referred by:: medicine Reason for Consultation:: urinary retention - History of Present Illness Chief Complaint: urinary retention, unable to pass andujar History of Present Illness: 71 year old male who denies any history. He is admitted and is on lovenox for Afib. He is in urinary retention with >1L of urine on bladder scan. He denies LUTS prior to hospitalization. ICU staff have tried to pass a andujar and have not been successful. - History Source History Provided By: Patient, Medical Record Limitations to Obtaining History: No Limitations - Past Medical History Cardio/Vascular: Yes: AFIB, CAD, CHF Renal/: No: Renal Failure, Renal Inusuff, BPH, Cancer, Hematuria, Hemodialysis , Neurogenic Bladder, Renal Calculi, UTI, Other - Alcohol/Substance Use Hx Alcohol Use: No - Smoking History Smoking history: Former smoker Have you smoked in the past 12 months: No Home Medications - Allergies Allergies/Adverse Reactions: Allergies Allergy/AdvReac Type Severity Reaction Status Date / Time No Known Allergies Allergy Verified 05/02/17 08:35 - Home Medications Home Medications: Ambulatory Orders Lisinopril 10 mg PO DAILY 05/02/17 Metoprolol Tartrate [Lopressor -] 50 mg PO BID 05/02/17 Rivaroxaban [Xarelto -] 20 mg PO DAILY 05/02/17 Review of Systems - Review of Systems Genitourinary: reports: Hematuria, Incontinence Physical Exam Vital Signs: Vital Signs Temperature 97.9 F 05/05/17 05:37 Pulse Rate 99 H 05/05/17 05:37 Respiratory Rate 20 05/05/17 05:37 Blood Pressure 159/108 05/05/17 05:37 O2 Sat by Pulse Oximetry (%) 95 05/04/17 20:53 Renal/: Yes: Bladder Distention, Incontinence. No: CVA Tenderness - Left, CVA Tenderness - Right, Andujar Present, Hematuria Labs: CBC, BMP 05/05/17 09:37 Problem List - Problems (1) Urinary retention Assessment/Plan: COude cath placed. clear then bloody return. will follow. Code(s): R33.9 - RETENTION OF URINE, UNSPECIFIED
[2017-05-05] MEDS: ENOXAPARIN NA (PORCINE) 120 MG/0.8 ML DISP.SYRIN SQ SCH ×2 (11:00→23:21)
[2017-05-05] MEDS: METOPROLOL TARTRATE 50 MG TABLET (FP) PO SCH ×2 (11:00→23:22)
[2017-05-05] MEDS: ASPIRIN 325 MG ENTERIC COATED TABLET (FP) PO SCH (11:00)
[2017-05-05] MEDS: LISINOPRIL 10 MG TABLET (FP) PO SCH (11:00)
[2017-05-05 11:11] LABS: CALCIUM 9.8 mg/dL (8.5-10.1)
[2017-05-05 11:24] LABS: COCKROFT - GAULT 40.53; CREATININE 2.7 mg/dL (0.7-1.3); FREE T4 1.74 ng/dl (0.76-1.16); THYROID STIMULATING HORMONE 0.34 uIU/ml (0.358-3.74)
--- NOTE | 2017-05-05 11:43 | PN ---
Physical Exam: SUBJECTIVE: Patient seen and examine at bed side this morning. Patient looked anxious, was worried about the urinary retention and about going for the stress test. Patient reported that despite trying to pass urine, he was unable to do so. Denies abdominal pain, nausea, vomiting, chest pain, sob, cough, palpitation. Overnight, the night team tried to pass the andujar catheter but it was difficult and he was bleeding as he is on blood thinners. Had high blood pressure overnight. OBJECTIVE: Vital Signs Period Temp Pulse Resp BP Sys/Vásquez Pulse Ox Last 24 Hr 97.6 F-98.6 F 88-116 16-24 130-182/87-125 95 GENERAL: Elderly male, sitting in a chair, anxious, is awake, alert, and fully oriented, in no acute distress, andujar catheter in place. HEAD: Normal with no signs of trauma. EYES: EOM intact, no pallor or icterus. ENT: Ears normal, moist mucous membranes. NECK: Supple. LUNGS: Breath sounds equal, clear to auscultation bilaterally, no wheezes, no crackles, no accessory muscle use. HEART: Regular rate and rhythm, S1, S2 without murmur, rub or gallop. ABDOMEN: Ventral hernia, Soft, nontender, nondistended, normoactive bowel sounds , no guarding, no rebound, no hepatosplenomegaly, no masses. UPPER EXTREMITIES: 2+ pulses, warm, well-perfused, no edema. LOWER EXTREMITIES: Right: erythematous area in the medial to lateral aspect around the ankle, serosanguinous fluid mild Left: Erythema below the knee upto the ankle, mildly tender, blisters +, raised temperature, pulses intact + NEUROLOGICAL: No facial droop, Power upper extremity-5/5; lower extremity- 3/5 B /L; Cranial nerves II through XII grossly intact. Normal speech, gait not observed. PSYCH: Normal mood, normal affect. SKIN: Warm, dry, normal turgor, no rashes or lesions noted Laboratory Results - last 24 hr 05/04/17 05/04/17 05/04/17 05:35 05:35 12:49 WBC RBC Hgb Hct MCV MCHC RDW Plt Count MPV Sodium Potassium Chloride Carbon Dioxide Anion Gap BUN Creatinine POC Glucometer [id number] Random Glucose Calcium Creatine Kinase Index 2.4 CK-MB (CK-2) Rel Index Cancelled C-Reactive Protein 5.0 H TSH Free T4 05/04/17 05/04/17 05/05/17 16:50 21:02 04:57 WBC RBC Hgb Hct MCV MCHC RDW Plt Count MPV Sodium Potassium Chloride Carbon Dioxide Anion Gap BUN Creatinine POC Glucometer 169.39462 123.38577 143.72637 Random Glucose Calcium Creatine Kinase Index CK-MB (CK-2) Rel Index C-Reactive Protein TSH Free T4 05/05/17 05/05/17 05/05/17 09:36 09:37 09:37 WBC 17.8 H D RBC 5.86 H Hgb 16.0 Hct 49.7 H MCV 84.7 MCHC 32.3 RDW 16.0 H Plt Count 173 D MPV 10.1 Sodium 136 Potassium 3.7 Chloride 92 L Carbon Dioxide 24 Anion Gap 20 H BUN 43 H D Creatinine 2.7 H D POC Glucometer Random Glucose 129 H Calcium 9.8 Creatine Kinase Index CK-MB (CK-2) Rel Index C-Reactive Protein TSH 0.34 L Free T4 Cancelled 1.74 H Active Medications Generic Name Dose Route Start Last Admin Trade Name Freq PRN Reason Stop Dose Admin Acetaminophen 650 mg 05/02/17 11:20 05/05/17 04:41 Tylenol - PO 650 mg Q6H PRN Administration FEVER OR PAIN Aspirin 325 mg 05/04/17 10:00 05/04/17 11:47 Ecotrin - PO 325 mg DAILY KENDELL Administration Collagenase 1 applic 05/04/17 10:00 05/04/17 11:55 Santyl - TP 1 applic DAILY KENDELL Administration Enoxaparin Sodium 120 mg 05/02/17 23:00 05/05/17 11:00 Lovenox - SQ Not Given BID KENDELL Furosemide 40 mg 05/04/17 10:00 05/04/17 11:48 Lasix Injection - IVPUSH 40 mg DAILY KENDELL Administration Cefazolin Sodium/Dextrose 50 mls @ 100 mls/hr 05/03/17 18:00 05/05/17 01:22 Ancef 2 Gm Premixed Ivpb - IVPB 100 mls/hr Q8H-IV KENDELL Administration Insulin Aspart 1 vial 05/03/17 22:00 05/05/17 06:00 Novolog Vial Sliding Scale - SQ Not Given ACHS KENDELL Protocol Lisinopril 10 mg 05/04/17 09:31 05/04/17 23:02 Prinivil PO 10 mg BID KENDELL Administration Metoprolol Tartrate 50 mg 05/03/17 16:00 05/04/17 23:02 Lopressor - PO 50 mg BID KENDELL Administration Nystatin 1 applic 05/04/17 22:00 05/04/17 23:02 Nystop Powder - TP 1 applic BID KENDELL Administration Ondansetron HCl 4 mg 05/02/17 11:20 05/05/17 03:24 Zofran Injection IVPB 4 mg Q6H PRN Administration NAUSEA Potassium Chloride 20 meq 05/03/17 10:00 05/04/17 11:47 K-Dur - PO 20 meq DAILY KENDELL Administration ASSESSMENT/PLAN: Patient is a 71 year old male with past medical history of history of Afib ( previously on Xarelto and Lopressor; has not taken them since 2014), HTN, CAD s/ p one stent at [facility] approx 15 yrs ago, and CHF (unknown type) admitted for evaluation of left lower extremity redness. # Urinary retention Bladder scan this morning showed 1000ml, unable to place andujar, was bleeding while placing andujar since patient is in blood thinners. Dr. Willett came in this morning and placed a coude cath- urine output- 1300ml post andujar placement # AGUSTÍN likely post renal cause-obstructive vs intrarenal Creatinine 1.4--->2.7 Patient takes Motrin PM every night for sleep, advised to avoid it. Urine electrolytes, Renal ultrasound ordered Renal consult appreciated # Cellulitis of the left lower extremity with osteomyelitis of the left great toe Leukocytosis 17.8 today Bone scan done on 05/03/17 showed osteomyeltitis CRP 5 Continue IV Cefazolin 2gm, change as per C/S Wound culture pending Collagenase TP Daily-wound Once patient is stable, would consider bone biopsy. # Increased Troponin: NSTEMI Admitted in Tele. Continuous cardiac monitoring Positive stress test, cannot anticoagulate tonight since patient has massive hematuria. Spoke with the script supervisor who suggested to talk with the urologist and if he is okay, we could start lovenox. Call placed to the urologist, wasn't able to reach him. Plan is to hold lovenox for now, repeat CBC at 8pm, if Hb is stable could restart Lovenox. Aspirin 325mg PO Daily # Atrial fibrillation-rate uncontrolled On Enoxaparin 120mg BID; Metoprolol 75 mg BID CBC to be repeated at 8pm today. Patient was On Xarelto 20mg PO Daily at home (last picked up the medication from [facility] on 2014) # Hypertension-not controlled Lisinopril 10mg PO BID # Hyperthyroidism TSH 0.34; T4-1.74; Free T3-pending. F/up with site interpreter outpatient. # Anxiety/ sleep disturbance Patient said that he takes Motrin PM every night for sleep. Advised patient not to take it daily as it may cause AGUSTÍN. Benadryl 25mg PO PRN HS Counseling. # Depression: c/o sad; depressed. Psyc consult pending. # Newly diagnosed DM HbA1c 7.1 Insulin sliding scale Finger stick glucose Diabetic diet # CHF Hold Lasix 40mg IV Daily due to AGUSTÍN Strict I's and O's Daily Weight Echo: Left ventricular systolic function normal, Mild pulmonary HTN # Hypokalemia K-Dur 20 mEq daily # Thrombocytopenia Monitor platelets as patient is on Lovenox # FEN Not on IV fluids Electrolytes Diabetic/sodium controlled diet # Prophylaxis For DVT: On Enoxaparin For GI: Not indicated # Code Status: Full Code # Dispo: Admitted in Tele. Duration of stay unknown. Called pharmacy- patient is non compliant. Illness, Investigation and Plan of care explained to the patient. He verbalized understanding. Case discussed with Dr. Figueroa. Visit type - Emergency Visit Emergency Visit: Yes ED Registration Date: 05/02/17 Care time: The patient presented to the Emergency Department on the above date and was hospitalized for further evaluation of their emergent condition. - New Patient This patient is new to me today: No - Critical Care Critical Care patient: No - Discharge Referral Referred to [facility] Med [facility] No
--- NOTE | 2017-05-05 11:55 | PN ---
Progress Note, Physician History of Present Illness: HISTORY OF PRESENT ILLNESS: The patient admits he is supposed to be on 6 medications (he is not sure what for besides HTN and A-fib) but hasn't taken any of them in 6 months because he is a self-proclaimed "bad patient". His niece informs me she thinks it's been more than 6 months. He is supposed to be on Xarelto for A-fib. The patient states for the past 1 week his left LE has been getting swollen and red. The right LE started swelling yesterday and a large bubble formed, which is essentially why he is here. He states he has to stop after every few steps that he walks but denies SOB? He denies f/c, cough, n/v/d, CP, palpitations, hemoptysis, orthopnea, abd pain, back pain, hematuria, dysuria. The patient quit smoking 40 years ago and does not drink. Primary Physician/Painting Worker: Dr. Jones (affiliated with [facility]; patient has not seen in > 1 year) pmh non complience mibi st more than 1 year ago stent many years ago - Current Medication List Current Medications: Active Medications Acetaminophen (Tylenol -) 650 mg PO Q6H PRN PRN Reason: FEVER OR PAIN Last Admin: 05/05/17 04:41 Dose: 650 mg Aspirin (Ecotrin -) 325 mg PO DAILY [facility] Last Admin: 05/04/17 11:47 Dose: 325 mg Collagenase (Santyl -) 1 applic TP DAILY [facility] Last Admin: 05/04/17 11:55 Dose: 1 applic Enoxaparin Sodium (Lovenox -) 120 mg SQ BID [facility] Last Admin: 05/05/17 11:00 Dose: Not Given Furosemide (Lasix Injection -) 40 mg IVPUSH DAILY [facility] Last Admin: 05/04/17 11:48 Dose: 40 mg Cefazolin Sodium/Dextrose (Ancef 2 Gm Premixed Ivpb -) 50 mls @ 100 mls/hr IVPB Q8H-IV [facility] Last Admin: 05/05/17 01:22 Dose: 100 mls/hr Insulin Aspart (Novolog Vial Sliding Scale -) 1 vial SQ ACHS [facility] PRN Reason: Protocol Last Admin: 05/05/17 06:00 Dose: Not Given Lisinopril (Prinivil) 10 mg PO BID [facility] Last Admin: 05/04/17 23:02 Dose: 10 mg Metoprolol Tartrate (Lopressor -) 50 mg PO BID [facility] Last Admin: 05/04/17 23:02 Dose: 50 mg Nystatin (Nystop Powder -) 1 applic TP BID [facility] Last Admin: 05/04/17 23:02 Dose: 1 applic Ondansetron HCl (Zofran Injection) 4 mg IVPB Q6H PRN PRN Reason: NAUSEA Last Admin: 05/05/17 03:24 Dose: 4 mg Potassium Chloride (K-Dur -) 20 meq PO DAILY [facility] Last Admin: 05/04/17 11:47 Dose: 20 meq - Objective Vital Signs: Vital Signs Temperature 97.6 F 05/05/17 08:25 Pulse Rate 97 H 05/05/17 09:15 Respiratory Rate 18 05/05/17 09:15 Blood Pressure 142/87 05/05/17 09:15 O2 Sat by Pulse Oximetry (%) 95 05/04/17 20:53 Eyes: Yes: WNL, Conjunctiva Clear, EOM Intact HENT: Yes: WNL, Atraumatic, Normocephalic Neck: Yes: WNL, Supple, Trachea Midline Cardiovascular: Yes: Pulse Irregular Respiratory: Yes: WNL, Regular, CTA Bilaterally Gastrointestinal: Yes: WNL, Normal Bowel Sounds Genitourinary: Yes: WNL Musculoskeletal: Yes: WNL Extremities: Yes: Erythema Edema: Yes Integumentary: Yes: WNL Neurological: Yes: WNL, Alert, Oriented ...Motor Strength: WNL Psychiatric: Yes: WNL Labs: CBC, BMP 05/05/17 09:37 05/05/17 09:37 INR, PTT INR 1.30 (0.82-1.09) H 05/03/17 06:20 Problem List - Problems (1) A-fib Code(s): I48.91 - UNSPECIFIED ATRIAL FIBRILLATION Qualifiers: Atrial fibrillation type: chronic Qualified Code(s): I48.2 - Chronic atrial fibrillation (2) CHF (congestive heart failure) Code(s): I50.9 - HEART FAILURE, UNSPECIFIED Qualifiers: Congestive heart failure type: unspecified congestive heart failure type Congestive heart failure chronicity: unspecified congestive heart failure chronicity Qualified Code(s): I50.9 - Heart failure, unspecified (3) Cellulitis Code(s): L03.90 - CELLULITIS, UNSPECIFIED (4) DVT prophylaxis Code(s): [id number] - (5) Elevated troponin Code(s): R74.8 - ABNORMAL LEVELS OF OTHER SERUM ENZYMES (6) Foot ulcer Code(s): L97.509 - NON-PRESSURE CHRONIC ULCER OTH PRT UNSP FOOT W UNSP SEVERITY (7) Hypertension Code(s): I10 - ESSENTIAL (PRIMARY) HYPERTENSION (8) Hypokalemia Code(s): E87.6 - HYPOKALEMIA (9) Thrombocytopenia Code(s): D69.6 - THROMBOCYTOPENIA, UNSPECIFIED (10) Urinary tract infection Code(s): N39.0 - URINARY TRACT INFECTION, SITE NOT SPECIFIED Assessment/Plan chf acute ?nonstemi af htn dm cellulitis non-complience urinary retention hematuria post andujar catheter placement plan asa BB iv lasix mibi stress test positive for anterior wall ischemia. Patient should be AC for positive mibi st s/p nonstemi and AF if no strong contraindications from svcs. D/w nurse and ICU resident. will need c. cath when medicaly stable.
--- NOTE | 2017-05-05 11:57 | PN ---
Teaching Attending Note Name of Resident: Richa Forde ATTENDING PHYSICIAN STATEMENT I saw and evaluated the patient. I reviewed the resident's note and discussed the case with the resident. I agree with the resident's findings and plan as documented. SUBJECTIVE:c/o abdominal pain , suprapubic pain which resolved after placement of andujar catheter OBJECTIVE: Vital Signs Temperature 97.6 F 05/05/17 08:25 Pulse Rate 97 H 05/05/17 09:15 Respiratory Rate 18 05/05/17 09:15 Blood Pressure 142/87 05/05/17 09:15 O2 Sat by Pulse Oximetry (%) 95 05/04/17 20:53 GENERAL: awake, alert, and fully oriented, in no acute distress HEAD: Normal with no signs of trauma. EYES: EOM intact, no pallor or icterus. ENT: Ears normal, moist mucous membranes. NECK: Supple. LUNGS: Breath sounds equal, clear to auscultation bilaterally, no wheezes, no crackles, no accessory muscle use. HEART: Regular rate and rhythm, S1, S2 without murmur, rub or gallop. ABDOMEN: Ventral hernia, Soft, nontender, nondistended, normoactive bowel sounds , no guarding, no rebound, no hepatosplenomegaly, no masses. UPPER EXTREMITIES: 2+ pulses, warm, well-perfused, no edema. LOWER EXTREMITIES: Right: erythematous area in the medial to lateral aspect around the ankle, serosanguinous fluid mild Left: Erythema below the knee upto the ankle, mildly tender, blisters +, raised temperature, pulses intact + NEUROLOGICAL: No facial droop, Power upper extremity-5/5; lower extremity- 3/5 B /L; Cranial nerves II through XII grossly intact. Normal speech, gait not observed. PSYCH: Normal mood, normal affect. SKIN: Warm, dry, normal turgor, no rashes or lesions noted CBC, BMP 05/05/17 09:37 05/05/17 09:37 ASSESSMENT AND PLAN: 1. Chronic urinary retention - 1000ml residual this am , hematuria after attempt to place andujar o/night . Now resolved , andujar was placed by urology. - andujar will remain in - Flomax - f/u urology recommendations - voiding trial in 24-48 hr 2. AGUSTÍN -worsening , multfactorial , 2/2 #1 and possibly lasix iv Creatinine 1.1-->1.4 - hold Lasix today - avoid nephrotoxins - repeat CR iin am 3. Cellulitis of the left lower extremity with osteomyelitis of the left great toe - Continue IV Cefazolin 2gm, change as per C/S - Wound culture pending - Collagenase TP Daily-wound 4. Atrial fibrillation-would benefit from better rate control - On Enoxaparin 120mg BID - Increase Metoprolol to 75 mg BID - will decide on shelter AC after MIBI 5. Hypertension-not controlled - increase metoprolol - PRN lopressor as needed 6. NSTEMI - going for MIBI - c/w Lovenox ,ASA, BBL , ACEIs 7. CHF - Continue Lasix 40mg IV Daily ( hold today due to worsening renal function ) - Strict I's and O's - Daily Weight -Echo
[2017-05-05] MEDS ORDERED: DIPYRIDAMOLE 50 MG/10 ML VIAL IVPB ONE (12:57)
--- NOTE | 2017-05-05 13:52 | PN ---
Physical Exam: SUBJECTIVE: Patient seen and examined. patient states that he had mild pain in suprapubic area which got better after andujar cath placement. Andujar cath was placed this morning by urologist. Patient has hematuria after andujar cath. OBJECTIVE: Vital Signs Period Temp Pulse Resp BP Sys/Vásquez Pulse Ox Last 24 Hr 97.6 F-98.6 F 88-99 16-24 130-159/87-125 95-97 GENERAL: Awake, alert, and fully oriented, in no acute distress. HEAD: Normal with no signs of trauma. EARS, NOSE, THROAT: Moist mucous membranes. NECK:no lymphadenopathy, JVD, or masses. LUNGS: Breath sounds equal, clear to auscultation bilaterally. No wheezes, and no crackles. No accessory muscle use. HEART: s1s2 normal, irregular ABDOMEN: Soft, nontender, not distended, normoactive bowel sounds, no guarding, no rebound, no masses. ventral hernia present, UPPER EXTREMITIES: 2+ pulses, warm, well-perfused. No cyanosis. LOWER EXTREMITIES:cold to touch, . No calf tenderness. No peripheral edema ++, erythema present on left LE, dressing present on RLE, rash present in groin and left LE SKIN: rash in LLE and groin Laboratory Results - last 24 hr 05/04/17 05/04/17 05/05/17 16:50 21:02 04:57 WBC RBC Hgb Hct MCV MCHC RDW Plt Count MPV Sodium Potassium Chloride Carbon Dioxide Anion Gap BUN Creatinine POC Glucometer 169.69828 123.64293 143.04074 Random Glucose Calcium TSH Free T4 05/05/17 05/05/17 05/05/17 09:36 09:37 09:37 WBC 17.8 H D RBC 5.86 H Hgb 16.0 Hct 49.7 H MCV 84.7 MCHC 32.3 RDW 16.0 H Plt Count 173 D MPV 10.1 Sodium 136 Potassium 3.7 Chloride 92 L Carbon Dioxide 24 Anion Gap 20 H BUN 43 H D Creatinine 2.7 H D POC Glucometer Random Glucose 129 H Calcium 9.8 TSH 0.34 L Free T4 Cancelled 1.74 H Active Medications Generic Name Dose Route Start Last Admin Trade Name Freq PRN Reason Stop Dose Admin Acetaminophen 650 mg 05/02/17 11:20 05/05/17 04:41 Tylenol - PO 650 mg Q6H PRN Administration FEVER OR PAIN Aspirin 325 mg 05/04/17 10:00 05/04/17 11:47 Ecotrin - PO 325 mg DAILY [facility] Administration Collagenase 1 applic 05/04/17 10:00 05/04/17 11:55 Santyl - TP 1 applic DAILY [facility] Administration Enoxaparin Sodium 120 mg 05/02/17 23:00 05/05/17 11:00 Lovenox - SQ Not Given BID [facility] Cefazolin Sodium/Dextrose 50 mls @ 100 mls/hr 05/03/17 18:00 05/05/17 11:00 Ancef 2 Gm Premixed Ivpb - IVPB Not Given Q8H-IV [facility] Insulin Aspart 1 vial 05/03/17 22:00 05/05/17 06:00 Novolog Vial Sliding Scale - SQ Not Given ACHS REPLACED BY [facility] Protocol Metoprolol Tartrate 75 mg 05/05/17 12:15 Lopressor - PO BID [facility] Nystatin 1 applic 05/04/17 22:00 05/04/17 23:02 Nystop Powder - TP 1 applic BID [facility] Administration Potassium Chloride 20 meq 05/03/17 10:00 05/04/17 11:47 K-Dur - PO 20 meq DAILY [facility] Administration ASSESSMENT/PLAN: Osteomyelitis and cellulitis Elevated Troponin A fib Hypertension Uncontrolled Acute diastolic CHF Thrombocytopenia, UTI Urinary retention. BPH DM Plan Andujar inserted by urologist this morning. Renal function worsen. Monitor creatnine. watch for postobstructive diureses If urine output decrease look for blockage of cath from blood clot. Monitor Renal function. Monitor electrolyte. Monitor and control blood sugar. Monitor and control HTN. Avoid nephrotoic drugs. . Work up for protein urea can be done as outpatient. Visit type - Emergency Visit Emergency Visit: Yes ED Registration Date: 05/02/17 Care time: The patient presented to the Emergency Department on the above date and was hospitalized for further evaluation of their emergent condition. - New Patient This patient is new to me today: No - Critical Care Critical Care patient: No
[2017-05-05] MEDS ORDERED: DIPYRIDAMOLE STRESS TEST 50 MG in DEXTROSE 5%-WATER - 40 ML IVPB ONE (14:15)
[2017-05-05] MEDS ORDERED: SODIUM CHLORIDE 1,000 ML IV SCH (14:30)
--- NOTE | 2017-05-05 15:16 | PN ---
Teaching Attending Note Name of Resident: Franklyn Srivastava (Nephrology) ATTENDING PHYSICIAN STATEMENT I saw and evaluated the patient. I reviewed the resident's note and discussed the case with the resident. I agree with the resident's findings and plan as documented. Pt seen and examined. He had mireille andujar placed by urology today. cardio s1s2 irreg pulm clear GI soft, ventral hernia gu andujar catheter in place, hematuria ext trace edema, cellulitis, erythema neuro awake and oriented Laboratory Tests 05/05/17 09:37 Chloride 92 L Anion Gap 20 H BUN 43 H D Creatinine 2.7 H D Current Medications Generic Name Dose Route Start Last Admin Trade Name Freq PRN Reason Stop Dose Admin Acetaminophen 650 mg 05/02/17 11:20 05/05/17 04:41 Tylenol - PO 650 mg Q6H PRN Administration FEVER OR PAIN Aspirin 325 mg 05/04/17 10:00 05/04/17 11:47 Ecotrin - PO 325 mg DAILY [facility] Administration Collagenase 1 applic 05/04/17 10:00 05/04/17 11:55 Santyl - TP 1 applic DAILY [facility] Administration Enoxaparin Sodium 120 mg 05/02/17 23:00 05/05/17 11:00 Lovenox - SQ Not Given BID [facility] Cefazolin Sodium/Dextrose 50 mls @ 100 mls/hr 05/03/17 18:00 05/05/17 11:00 Ancef 2 Gm Premixed Ivpb - IVPB Not Given Q8H-IV [facility] Sodium Chloride 1,000 mls @ 83 mls/hr 05/05/17 14:30 Normal Saline - IV ASDIR [facility] Insulin Aspart 1 vial 05/03/17 22:00 05/05/17 06:00 Novolog Vial Sliding Scale - SQ Not Given ACHS [facility] Protocol Metoprolol Tartrate 75 mg 05/05/17 12:15 Lopressor - PO BID [facility] Nystatin 1 applic 05/04/17 22:00 05/04/17 23:02 Nystop Powder - TP 1 applic BID [facility] Administration Potassium Chloride 20 meq 05/03/17 10:00 05/04/17 11:47 K-Dur - PO 20 meq DAILY [facility] Administration Impression 1. AGUSTÍN likely from obstruction 2. a-fib 3. HTN 4. cellulitis 5. obstructive uropathy - 900 cc on bladder scan 6. BPH 7. CHF 8. DM Plan - andujar catheter placed this morning - renal function is worse - etiology miladys obstructive uropathy - monitor output - flush andujar if output decreases - will follow Dr Teague
[2017-05-05] MEDS ORDERED: PT OWN MED DRAWER 7, Y5N ONE (16:11)
[2017-05-05] MEDS: SODIUM CHLORIDE 0.45% 1,000 ML IV SCH (16:15)
[2017-05-05] MEDS: COLLAGENASE CLOSTRIDIUM HIST. 30 GRAMS TUBE TP SCH (16:26)
[2017-05-05] MEDS: NYSTATIN POWDER 100,000 UNITS/GM - 15 GM TOPICAL POWDER TP SCH ×2 (16:27→23:22)
[2017-05-05] MEDS: POTASSIUM CHLORIDE TABS 20 MEQ TABLET.ER (FP) PO SCH (16:27)
--- NOTE | 2017-05-05 16:36 | CON.PSY ---
Psychiatry Consult Chief Complaint: I was depressed yesterday but feel 0k now. - Previous Psychiatric Treatment Outpatient: None Inpatient: None - Previous Substance Abuse Treatment Outpatient: None Inpatient: None - Current Medications Current Medications: Active Medications Acetaminophen (Tylenol -) 650 mg PO Q6H PRN PRN Reason: FEVER OR PAIN Last Admin: 05/05/17 04:41 Dose: 650 mg Aspirin (Ecotrin -) 325 mg PO DAILY [facility] Last Admin: 05/04/17 11:47 Dose: 325 mg Collagenase (Santyl -) 1 applic TP DAILY [facility] Last Admin: 05/05/17 16:26 Dose: 1 applic Enoxaparin Sodium (Lovenox -) 120 mg SQ BID [facility] Last Admin: 05/05/17 11:00 Dose: Not Given Cefazolin Sodium/Dextrose (Ancef 2 Gm Premixed Ivpb -) 50 mls @ 100 mls/hr IVPB Q8H-IV [facility] Last Admin: 05/05/17 11:00 Dose: Not Given Sodium Chloride (1/2 Normal Saline) 1,000 mls @ 75 mls/hr IV ASDIR [facility] Last Admin: 05/05/17 16:15 Dose: 75 mls/hr Insulin Aspart (Novolog Vial Sliding Scale -) 1 vial SQ ACHS [facility] PRN Reason: Protocol Last Admin: 05/05/17 11:00 Dose: Not Given Metoprolol Tartrate (Lopressor -) 75 mg PO BID [facility] Nystatin (Nystop Powder -) 1 applic TP BID [facility] Last Admin: 05/05/17 16:27 Dose: 1 applic Potassium Chloride (K-Dur -) 20 meq PO DAILY [facility] Last Admin: 05/05/17 16:27 Dose: 20 meq - Allergies Allergies: Allergies Allergy/AdvReac Type Severity Reaction Status Date / Time No Known Allergies Allergy Verified 05/02/17 08:35 - Current Living Status Usual Living Arrangement: Alone - Current Mental Status Evaluation Appearance: Well Groomed Attitude: Cooperative - Affect Affect: Constrictive Appropriateness: Appropriate to Content - Mood Mood: Euthymic - Speech/Language Expressive: Coherent - Psychomotor Activity Psychomotor Activity: Slowed - Thought Process Thought Process: Intact - Thought Content Hallucinations: Absent Delusions: Absent - Self Perception Self Perception: No Impairment - Cognition Attention: Alert Orientation: Time Memory, Immediate Recall: Intact Memory, Short Term: 2/3 Memory, Remote with Promptin/3 - Concentration Serial Sevens Intact: No Simple Calculations Intact: No - Abstraction Proverb Interpretation: Intact Judgement: Intact - Insight Insight: Intact - Impulse Control Impulse Control: Good Control - Suicidal Ideation Suicidal Ideation: No - Homicidal Ideation Homicidal Ideation: No Assessment/Plan !) will observe patient on no psych meds, will reevaluate after medical condition is stabilized if needed.
[2017-05-05 20:33] LABS: MCH 26.9 pg (25.7-33.7); MCHC 31.9 g/dl (32.0-35.9); MEAN CELL VOLUME 84.3 fl (80-96); MEAN PLT VOLUME 10.4 fl (7.5-11.1); PLATELET COUNT 122 K/MM3 (134-434); RDW 15.9 % (11.9-15.9); WHITE BLOOD COUNT 11.6 K/mm3 (4.0-10.0)
--- NOTE | 2017-05-05 22:10 | PN ---
Progress Note (short form) - Note Progress Note: will NOT start Lovenox tonight; patient actively bleeding from andujar tube and bag. Follow up cbc in am .
[2017-05-06] MEDS: CEFAZOLIN 2 GM/D5W 50 ML IVPB SCH ×3 (02:11→18:30)
[2017-05-06] MEDS: INSULIN SLIDING SCALE (NOVOLOG) 1 VIAL SQ SCH ×4 (06:43→22:34)
[2017-05-06] MEDS: SODIUM CHLORIDE 0.45% 1,000 ML IV SCH ×2 (06:57→17:15)
--- NOTE | 2017-05-06 09:46 | PN ---
Teaching Attending Note Name of Resident: Azam Arita ATTENDING PHYSICIAN STATEMENT I saw and evaluated the patient. I reviewed the resident's note and discussed the case with the resident. I agree with the resident's findings and plan as documented. SUBJECTIVE: denies chest pain , SOB or pain. Continues having gross hematuria. OBJECTIVE: Vital Signs Temperature 97.5 F L 05/06/17 06:23 Pulse Rate 86 05/06/17 06:23 Respiratory Rate 18 05/06/17 06:23 Blood Pressure 130/72 05/06/17 06:23 O2 Sat by Pulse Oximetry (%) 97 05/05/17 21:00 GENERAL: awake, alert, and fully oriented, in no acute distress HEAD: Normal with no signs of trauma. EYES: EOM intact, no pallor or icterus. ENT: Ears normal, moist mucous membranes. NECK: Supple. LUNGS: Breath sounds equal, clear to auscultation bilaterally, no wheezes, no crackles, no accessory muscle use. HEART: Regular rate and rhythm, S1, S2 without murmur, rub or gallop. ABDOMEN: Ventral hernia, Soft, nontender, nondistended, normoactive bowel sounds , no guarding, no rebound, no hepatosplenomegaly, no masses. UPPER EXTREMITIES: 2+ pulses, warm, well-perfused, no edema. LOWER EXTREMITIES: Left: Erythema below the knee, improving comparing to yesterday , pulses intact +, trace edema NEUROLOGICAL: No facial droop, Power upper extremity-5/5; lower extremity- 3/5 B /L; Cranial nerves II through XII grossly intact. Normal speech, gait not observed. PSYCH: Normal mood, normal affect. CBC, BMP 05/05/17 19:45 05/05/17 09:37 ASSESSMENT AND PLAN: 1. Gross hematuria s/p insertion of andujar catheter due to urinary retention - hematurie continues this AM despite holding anticoagulation. - andujar will remain in - Flomax ordered - urology f/u appreciated - voiding trial when hematuria resolves 2. AGUSTÍN -worsening , multfactorial , 2/2 #1 and possibly lasix iv that was given to manage CHF - lasix is discontinued - avoid nephrotoxins -will follow labs today - hold Lisinopril 3. Cellulitis of the left lower extremity with osteomyelitis of the left great toe - Continue IV Cefazolin 2gm, change as per C/S - Collagenase TP Daily-wound - need to determine length of treatment per ID to plan [employer] IV ab as outpatient 4. 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 Hypertension - better controlled - PRN lopressor as needed 6. NSTEMI - MIBI revealed reversible anterior wall perfusion defect consistent with ischemia. - ASA, BBL - Aceis on hold due to ARF - Anticoagulation is on hold due to bleeding - will need transfer for C cath when stable 7. CHF - Continue Lasix 40mg IV Daily ( hold today due to worsening renal function ) - Strict I's and O's - Daily Weight -Echo
--- NOTE | 2017-05-06 09:47 | PN ---
Physical Exam: SUBJECTIVE: Patient seen and examined at bedside this AM in ICU. AAO & in a pleasant mood. States he is feeling better and has noted a marked decreased in pain, swelling & erythema of left lower extremity. Patient still has moderate bloody output from andujar with dried blood surround urethra. Afebrile overnight with controlled HR and stable BP. Denies any SOB, chest pain, palpitations. No acute events overnight. OBJECTIVE: Vital Signs Period Temp Pulse Resp BP Sys/Vásquez Pulse Ox Last 24 Hr 97.5 F-97.8 F 86-98 16-18 122-151/71-100 97 GENERAL: The patient is awake, alert, and fully oriented, in no acute distress. Sitting upright in bed. Midlly anxious when discussing clinical condition & HEENT: Atraumatic, EOMI, PERRLA, No lymphadenopathy noted, moist membranes LUNGS: Breath sounds equal, clear to auscultation bilaterally, no wheezes, no crackles, no accessory muscle use. HEART: Regular rate and rhythm, S1, S2 without murmur, rub or gallop. ABDOMEN: Soft, nontender, nondistended, normoactive bowel sounds. Ventral hernia noted. UPPER EXTREMITIES: 2+ pulses, warm, well-perfused, no edema. LOWER EXTREMITIES: RLE erythematous area in the medial to lateral aspect around the ankle without drainage. LLE erythema & increased warmth from mid calf down to foot. Minimally tender & without drainage. 2+ DP pulses bilaterally. NEUROLOGICAL: Cranial nerves II through XII grossly intact. Normal speech, gait not observed. PSYCH: Normal mood, normal affect. Mildly anxious at times. SKIN: as above Laboratory Results - last 24 hr 05/05/17 05/05/17 05/05/17 09:36 09:37 09:37 WBC 17.8 H D RBC 5.86 H Hgb 16.0 Hct 49.7 H MCV 84.7 MCHC 32.3 RDW 16.0 H Plt Count 173 D MPV 10.1 Sodium 136 Potassium 3.7 Chloride 92 L Carbon Dioxide 24 Anion Gap 20 H BUN 43 H D Creatinine 2.7 H D POC Glucometer Random Glucose 129 H Calcium 9.8 TSH 0.34 L Free T4 Cancelled 1.74 H Free T3 05/05/17 05/05/17 05/05/17 09:37 15:52 19:45 WBC 11.6 H D RBC 4.85 Hgb 13.1 D Hct 40.9 D MCV 84.3 MCHC 31.9 L RDW 15.9 Plt Count 122 L D MPV 10.4 Sodium Potassium Chloride Carbon Dioxide Anion Gap BUN Creatinine POC Glucometer [id number] Random Glucose Calcium TSH Free T4 Free T3 1.5 L Active Medications Generic Name Dose Route Start Last Admin Trade Name Freq PRN Reason Stop Dose Admin Acetaminophen 650 mg 05/02/17 11:20 05/05/17 04:41 Tylenol - PO 650 mg Q6H PRN Administration FEVER OR PAIN Aspirin 325 mg 05/04/17 10:00 05/05/17 11:00 Ecotrin - PO Not Given DAILY KENDELL Collagenase 1 applic 05/04/17 10:00 05/05/17 16:26 Santyl - TP 1 applic DAILY KENDELL Administration Enoxaparin Sodium 120 mg 05/02/17 23:00 05/05/17 23:21 Lovenox - SQ Not Given BID KENDELL Cefazolin Sodium/Dextrose 50 mls @ 100 mls/hr 05/03/17 18:00 05/06/17 02:11 Ancef 2 Gm Premixed Ivpb - IVPB 100 mls/hr Q8H-IV KENDELL Administration Sodium Chloride 1,000 mls @ 75 mls/hr 05/05/17 15:30 05/06/17 06:57 1/2 Normal Saline IV 75 mls/hr ASDIR KENDELL Administration Insulin Aspart 1 vial 05/03/17 22:00 05/06/17 06:43 Novolog Vial Sliding Scale - SQ Not Given ACHS KENDELL Protocol Metoprolol Tartrate 75 mg 05/05/17 12:15 05/05/17 23:22 Lopressor - PO 75 mg BID KENDELL Administration Nystatin 1 applic 05/04/17 22:00 05/05/17 23:22 Nystop Powder - TP 1 applic BID KENDELL Administration Potassium Chloride 20 meq 05/03/17 10:00 05/05/17 16:27 K-Dur - PO 20 meq DAILY KENDELL Administration ASSESSMENT/PLAN: 71 year old male with PMH of A-Fib (previously on Xarelto, stopped in 2014), HTN , CAD s/p stent x1 & CHF who presented to ED with LLE redness. Diagnosed with Osteomyelitis but also noted to have NSTEMI. #Acute LLE Cellulitis with Osteomyelitis of left big toe (confirmed on bone scan 05/03/17) -continue Cefazolin 2g daily -wound culture pending -blood/urine cultures (-) -Collegenase administration daily, as per podiatry -will likely need bone biopsy at some point #NSTEMI -continuous cardiac monitoring on telemetry -stress test (+) but cannot anticoagulate with Lovenox due to active bleeding from andujar; ultimately needs cardiac catheterization as well -troponins initially trending up, but have decreased in last 2 days -currently on Aspirin 325mg -will start Lovenox when active bleeding stops -cardiology consult appreciated #Acute Kidney Injury, in setting of urinary retention & chronic Motrin use -since andujar placement, urine output has been consistent but very bloody -creatinine increased from 1.1 initially to 2.7 yesterday (awaiting this AM's labs) -IVF 1/2NS @75cc/hr for hydration -Flomax 0.4mg daily started -renal ultrasound pending -urine electrolytes pending -nephrology consult appreciated -urology consult appreciated #Atrial Fibrillation -currently rate controlled but still irregular -continue Lopressor 75mg BID -No AC at present due to active bleed #CHF -Currently holding Lasix due to AGUSTÍN -Strict I & O -Daily weights ECHO showed: LV Systolic Function Normal; Mild Pulmonary HTN #DM -Insulin sliding scale for coverage -FS BGM -Diabetic diet #Hyperthyroidism -TSH 0.34; T4-1.74 -needs outpatient followup with mechanical detailer #Anxiety/Depression -Benadryl HS for sleep difficulty -patient counseled on signs/symptoms of depression -psych consult appreciated Prophylaxis/FEN -No AC due to active bleeding -No PPI indicated -IVF 1/2NS @75cc/hr -monitor electrolytes, continue K-Dur 20mEq daily -Diabetic/sodium controlled diet DISPO: Will need transfer for cardiac cath when clinically more stable Visit type - Emergency Visit Emergency Visit: Yes ED Registration Date: 05/02/17 Care time: The patient presented to the Emergency Department on the above date and was hospitalized for further evaluation of their emergent condition. - New Patient This patient is new to me today: Yes Date on this admission: 05/06/17 - Critical Care Critical Care patient: No
[2017-05-06] MEDS ORDERED: PT OWN MED DRAWER 7, Y5N ONE (10:05)
[2017-05-06] MEDS: METOPROLOL TARTRATE 50 MG TABLET (FP) PO SCH ×2 (10:08→22:34)
[2017-05-06] MEDS: ASPIRIN 325 MG ENTERIC COATED TABLET (FP) PO SCH (10:08)
[2017-05-06] MEDS: POTASSIUM CHLORIDE TABS 20 MEQ TABLET.ER (FP) PO SCH (10:08)
[2017-05-06] MEDS: ENOXAPARIN NA (PORCINE) 120 MG/0.8 ML DISP.SYRIN SQ SCH ×2 (10:09→22:34)
--- NOTE | 2017-05-06 10:42 | PN ---
Progress Note, Physician History of Present Illness: HISTORY OF PRESENT ILLNESS: The patient admits he is supposed to be on 6 medications (he is not sure what for besides HTN and A-fib) but hasn't taken any of them in 6 months because he is a self-proclaimed "bad patient". His niece informs me she thinks it's been more than 6 months. He is supposed to be on Xarelto for A-fib. The patient states for the past 1 week his left LE has been getting swollen and red. The right LE started swelling yesterday and a large bubble formed, which is essentially why he is here. He states he has to stop after every few steps that he walks but denies SOB? He denies f/c, cough, n/v/d, CP, palpitations, hemoptysis, orthopnea, abd pain, back pain, hematuria, dysuria. The patient quit smoking 40 years ago and does not drink. Primary Physician/Residential Property Manager: Dr. Jones (affiliated with [place]; patient has not seen in > 1 year) pmh non complience mibi st more than 1 year ago stent many years ago - Current Medication List Current Medications: Active Medications Acetaminophen (Tylenol -) 650 mg PO Q6H PRN PRN Reason: FEVER OR PAIN Last Admin: 05/05/17 04:41 Dose: 650 mg Aspirin (Ecotrin -) 325 mg PO DAILY [facility] Last Admin: 05/06/17 10:08 Dose: 325 mg Collagenase (Santyl -) 1 applic TP DAILY [facility] Last Admin: 05/05/17 16:26 Dose: 1 applic Enoxaparin Sodium (Lovenox -) 120 mg SQ BID [facility] Last Admin: 05/06/17 10:09 Dose: Not Given Cefazolin Sodium/Dextrose (Ancef 2 Gm Premixed Ivpb -) 50 mls @ 100 mls/hr IVPB Q8H-IV [facility] Last Admin: 05/06/17 10:08 Dose: 100 mls/hr Sodium Chloride (1/2 Normal Saline) 1,000 mls @ 75 mls/hr IV ASDIR [facility] Last Admin: 05/06/17 06:57 Dose: 75 mls/hr Insulin Aspart (Novolog Vial Sliding Scale -) 1 vial SQ ACHS [facility] PRN Reason: Protocol Last Admin: 06/15/17 06:43 Dose: Not Given Metoprolol Tartrate (Lopressor -) 75 mg PO BID [facility] Last Admin: 05/06/17 10:08 Dose: 75 mg Nystatin (Nystop Powder -) 1 applic TP BID [facility] Last Admin: 05/05/17 23:22 Dose: 1 applic Potassium Chloride (K-Dur -) 20 meq PO DAILY [facility] Last Admin: 05/06/17 10:08 Dose: 20 meq Tamsulosin HCl (Flomax -) 0.4 mg PO DAILY@0830 [facility] - Objective Vital Signs: Vital Signs Temperature 97.5 F L 05/06/17 06:23 Pulse Rate 86 05/06/17 06:23 Respiratory Rate 18 05/06/17 06:23 Blood Pressure 130/72 05/06/17 06:23 O2 Sat by Pulse Oximetry (%) 97 05/05/17 21:00 Eyes: Yes: WNL, Conjunctiva Clear, EOM Intact HENT: Yes: WNL, Atraumatic, Normocephalic Neck: Yes: WNL, Supple, Trachea Midline Cardiovascular: Yes: WNL, Regular Rate and Rhythm Respiratory: Yes: WNL, Regular, CTA Bilaterally Gastrointestinal: Yes: WNL, Normal Bowel Sounds Genitourinary: Yes: WNL Musculoskeletal: Yes: WNL Extremities: Yes: WNL Edema: No Integumentary: Yes: WNL Neurological: Yes: WNL, Alert, Oriented ...Motor Strength: WNL Psychiatric: Yes: WNL Labs: CBC, BMP 05/05/17 19:45 05/05/17 09:37 INR, PTT INR 1.30 (0.82-1.09) H 05/03/17 06:20 Problem List - Problems (1) A-fib Code(s): I48.91 - UNSPECIFIED ATRIAL FIBRILLATION Qualifiers: Atrial fibrillation type: chronic Qualified Code(s): I48.2 - Chronic atrial fibrillation (2) CHF (congestive heart failure) Code(s): I50.9 - HEART FAILURE, UNSPECIFIED Qualifiers: Congestive heart failure type: unspecified congestive heart failure type Congestive heart failure chronicity: unspecified congestive heart failure chronicity Qualified Code(s): I50.9 - Heart failure, unspecified (3) Cellulitis Code(s): L03.90 - CELLULITIS, UNSPECIFIED (4) DVT prophylaxis Code(s): GQK3417 - (5) Elevated troponin Code(s): R74.8 - ABNORMAL LEVELS OF OTHER SERUM ENZYMES (6) Foot ulcer Code(s): L97.509 - NON-PRESSURE CHRONIC ULCER OTH PRT UNSP FOOT W UNSP SEVERITY (7) Hypertension Code(s): I10 - ESSENTIAL (PRIMARY) HYPERTENSION (8) Hypokalemia Code(s): E87.6 - HYPOKALEMIA (9) Thrombocytopenia Code(s): D69.6 - THROMBOCYTOPENIA, UNSPECIFIED (10) Urinary tract infection Code(s): N39.0 - URINARY TRACT INFECTION, SITE NOT SPECIFIED Assessment/Plan chf acute ?nonstemi af htn dm cellulitis non-complience urinary retention hematuria post andujar catheter placement plan asa BB iv lasix mibi stress test positive for anterior wall ischemia. Patient should be AC for positive mibi st s/p nonstemi and AF if no strong contraindications from svcs. D/w nurse and ICU resident. will need c. cath when medicaly stable Patient requested transfer to [facility] (his hospital medical biller is dr. Jones) for c. cath.
[2017-05-06 11:15] LABS: MCH 27.1 pg (25.7-33.7); MCHC 32.2 g/dl (32.0-35.9); MEAN CELL VOLUME 84.1 fl (80-96); MEAN PLT VOLUME 9.7 fl (7.5-11.1); PLATELET COUNT 135 K/MM3 (134-434); WHITE BLOOD COUNT 9.6 K/mm3 (4.0-10.0)
[2017-05-06 11:45] LABS: COCKROFT - GAULT 67.55; CREATININE 1.6 mg/dL (0.7-1.3)
[2017-05-06 11:46] LABS: ALBUMIN 2.5 g/dl (3.4-5.0); BILIRUBIN,TOTAL 1.4 mg/dL (0.2-1.0); CALCIUM 8.3 mg/dL (8.5-10.1)
[2017-05-06] MEDS: NYSTATIN POWDER 100,000 UNITS/GM - 15 GM TOPICAL POWDER TP SCH (14:00)
--- NOTE | 2017-05-06 16:06 | PN ---
Progress Note, Physician History of Present Illness: Pt seen and examined at bedside. He denies shortness of breath. - Current Medication List Current Medications: Active Medications Acetaminophen (Tylenol -) 650 mg PO Q6H PRN PRN Reason: FEVER OR PAIN Last Admin: 05/05/17 04:41 Dose: 650 mg Aspirin (Ecotrin -) 325 mg PO DAILY [facility] Last Admin: 05/06/17 10:08 Dose: 325 mg Collagenase (Santyl -) 1 applic TP DAILY [facility] Last Admin: 05/05/17 16:26 Dose: 1 applic Enoxaparin Sodium (Lovenox -) 120 mg SQ BID [facility] Last Admin: 05/06/17 10:09 Dose: Not Given Cefazolin Sodium/Dextrose (Ancef 2 Gm Premixed Ivpb -) 50 mls @ 100 mls/hr IVPB Q8H-IV [facility] Last Admin: 05/06/17 10:08 Dose: 100 mls/hr Sodium Chloride (1/2 Normal Saline) 1,000 mls @ 75 mls/hr IV ASDIR [facility] Last Admin: 05/06/17 06:57 Dose: 75 mls/hr Insulin Aspart (Novolog Vial Sliding Scale -) 1 vial SQ ACHS [facility] PRN Reason: Protocol Last Admin: 05/06/17 13:02 Dose: Not Given Metoprolol Tartrate (Lopressor -) 75 mg PO BID [facility] Last Admin: 05/06/17 10:08 Dose: 75 mg Nystatin (Nystop Powder -) 1 applic TP BID [facility] Last Admin: 05/05/17 23:22 Dose: 1 applic Potassium Chloride (K-Dur -) 20 meq PO DAILY [facility] Last Admin: 05/06/17 10:08 Dose: 20 meq Tamsulosin HCl (Flomax -) 0.4 mg PO DAILY@0830 [facility] - Objective Vital Signs: Vital Signs Temperature 97.8 F 05/06/17 13:32 Pulse Rate 88 05/06/17 13:32 Respiratory Rate 18 05/06/17 13:32 Blood Pressure 146/87 05/06/17 13:32 O2 Sat by Pulse Oximetry (%) 97 05/06/17 10:00 Constitutional: Yes: Calm Eyes: Yes: Conjunctiva Clear HENT: Yes: Atraumatic Cardiovascular: Yes: S1, S2 Respiratory: Yes: CTA Bilaterally Gastrointestinal: Yes: Soft, Abdomen, Obese Genitourinary: Yes: Andujar Present, Hematuria Musculoskeletal: Yes: WNL Edema: Yes Edema: LLE: Trace, RLE: Trace Integumentary: Yes: Erythema, Rash Neurological: Yes: Oriented Psychiatric: Yes: Oriented Labs: CBC, BMP 05/06/17 10:30 05/06/17 10:30 INR, PTT INR 1.30 (0.82-1.09) H 05/03/17 06:20 - ....Imaging Ultrasound: Report Reviewed Problem List - Problems (1) A-fib Code(s): I48.91 - UNSPECIFIED ATRIAL FIBRILLATION Qualifiers: Atrial fibrillation type: chronic Qualified Code(s): I48.2 - Chronic atrial fibrillation (2) CHF (congestive heart failure) Code(s): I50.9 - HEART FAILURE, UNSPECIFIED Qualifiers: Congestive heart failure type: unspecified congestive heart failure type Congestive heart failure chronicity: unspecified congestive heart failure chronicity Qualified Code(s): I50.9 - Heart failure, unspecified (3) Urinary retention Code(s): R33.9 - RETENTION OF URINE, UNSPECIFIED (4) AGUSTÍN (acute kidney injury) Code(s): N17.9 - ACUTE KIDNEY FAILURE, UNSPECIFIED Assessment/Plan Current Medications Generic Name Dose Route Start Last Admin Trade Name Freq PRN Reason Stop Dose Admin Acetaminophen 650 mg 05/02/17 11:20 05/05/17 04:41 Tylenol - PO 650 mg Q6H PRN Administration FEVER OR PAIN Aspirin 325 mg 05/04/17 10:00 05/06/17 10:08 Ecotrin - PO 325 mg DAILY KENDELL Administration Collagenase 1 applic 05/04/17 10:00 05/05/17 16:26 Santyl - TP 1 applic DAILY KENDELL Administration Enoxaparin Sodium 120 mg 05/02/17 23:00 05/06/17 10:09 Lovenox - SQ Not Given BID KENDELL Cefazolin Sodium/Dextrose 50 mls @ 100 mls/hr 05/03/17 18:00 05/06/17 10:08 Ancef 2 Gm Premixed Ivpb - IVPB 100 mls/hr Q8H-IV KENDELL Administration Sodium Chloride 1,000 mls @ 75 mls/hr 05/05/17 15:30 05/06/17 06:57 1/2 Normal Saline IV 75 mls/hr ASDIR KENDELL Administration Insulin Aspart 1 vial 05/03/17 22:00 05/06/17 13:02 Novolog Vial Sliding Scale - SQ Not Given ACHS [facility] Protocol Metoprolol Tartrate 75 mg 05/05/17 12:15 05/06/17 10:08 Lopressor - PO 75 mg BID KENDELL Administration Nystatin 1 applic 05/04/17 22:00 05/05/17 23:22 Nystop Powder - TP 1 applic BID KENDELL Administration Potassium Chloride 20 meq 05/03/17 10:00 05/06/17 10:08 K-Dur - PO 20 meq DAILY KENDELL Administration Tamsulosin HCl 0.4 mg 05/07/17 08:30 Flomax - PO DAILY@0830 [facility] Impression 1. AGUSTÍN likely from obstruction 2. a-fib 3. HTN 4. cellulitis 5. obstructive uropathy - 900 cc on bladder scan 6. BPH 7. CHF 8. DM Plan - keep andujar in place - cont fluids - pt still has hematuria, monitor urine to clear - renal function is improving today - etiology likley obstructive uropathy - monitor output - flush andujar if output decreases - will follow
--- NOTE | 2017-05-06 17:02 | PN ---
Progress Note, Physician History of Present Illness: OOB in chair No c/o leg pain No fever/ chills Afebrile WBC down- WNL - Current Medication List Current Medications: Active Medications Acetaminophen (Tylenol -) 650 mg PO Q6H PRN PRN Reason: FEVER OR PAIN Last Admin: 05/05/17 04:41 Dose: 650 mg Aspirin (Ecotrin -) 325 mg PO DAILY [facility] Last Admin: 05/06/17 10:08 Dose: 325 mg Collagenase (Santyl -) 1 applic TP DAILY [facility] Last Admin: 05/05/17 16:26 Dose: 1 applic Enoxaparin Sodium (Lovenox -) 120 mg SQ BID [facility] Last Admin: 05/06/17 10:09 Dose: Not Given Cefazolin Sodium/Dextrose (Ancef 2 Gm Premixed Ivpb -) 50 mls @ 100 mls/hr IVPB Q8H-IV [facility] Last Admin: 05/06/17 10:08 Dose: 100 mls/hr Sodium Chloride (1/2 Normal Saline) 1,000 mls @ 75 mls/hr IV ASDIR [facility] Last Admin: 05/06/17 06:57 Dose: 75 mls/hr Insulin Aspart (Novolog Vial Sliding Scale -) 1 vial SQ ACHS [facility] PRN Reason: Protocol Last Admin: 05/06/17 13:02 Dose: Not Given Metoprolol Tartrate (Lopressor -) 75 mg PO BID [facility] Last Admin: 05/06/17 10:08 Dose: 75 mg Nystatin (Nystop Powder -) 1 applic TP BID [facility] Last Admin: 05/05/17 23:22 Dose: 1 applic Potassium Chloride (K-Dur -) 20 meq PO DAILY [facility] Last Admin: 05/06/17 10:08 Dose: 20 meq Tamsulosin HCl (Flomax -) 0.4 mg PO DAILY@0830 [facility] - Objective Vital Signs: Vital Signs Temperature 97.8 F 05/06/17 13:32 Pulse Rate 88 05/06/17 13:32 Respiratory Rate 18 05/06/17 13:32 Blood Pressure 146/87 05/06/17 13:32 O2 Sat by Pulse Oximetry (%) 97 05/06/17 10:00 Constitutional: Yes: No Distress, Obese Eyes: Yes: Conjunctiva Clear Cardiovascular: Yes: Regular Rate and Rhythm, S1, S2 Respiratory: Yes: CTA Bilaterally Gastrointestinal: Yes: Normal Bowel Sounds, Soft. No: Tenderness Extremities: Yes: Other (decreased erythema/ swelling L LE) Labs: CBC, BMP 05/06/17 10:30 05/06/17 10:30 INR, PTT INR 1.30 (0.82-1.09) H 05/03/17 06:20 Assessment/Plan Cellulitis L LE- improved Dry L great toe ulcer + osteomyelitis by bone scan Chronic venous stasis dermatitis Leukocytosis- resolved Thrombocytopenia- improved Azotemia- improved Elevated LFTs- improved Continue cefazolin Wound c/s Elevation
[2017-05-06] MEDS: COLLAGENASE CLOSTRIDIUM HIST. 30 GRAMS TUBE TP SCH (17:17)
[2017-05-06] MEDS ORDERED: diphenhydrAMINE HCL 25 MG CAPSULE (FP) PO ONE (22:14)
[2017-05-07] MEDS: NYSTATIN POWDER 100,000 UNITS/GM - 15 GM TOPICAL POWDER TP SCH ×3 (00:17→23:07)
[2017-05-07] MEDS: CEFAZOLIN 2 GM/D5W 50 ML IVPB SCH ×2 (01:11→11:33)
[2017-05-07] MEDS: SODIUM CHLORIDE 0.45% 1,000 ML IV SCH ×2 (01:11→17:11)
[2017-05-07 06:33] LABS: BASOPHIL 0.2 % (0-2.0); EOSINOPHIL 0.8 % (0-4.5); MCH 26.9 pg (25.7-33.7); NEUTROPHILS 75.6 % (42.8-82.8); PLATELET COUNT 101 K/MM3 (134-434); RDW 16.2 % (11.9-15.9); WHITE BLOOD COUNT 6.3 K/mm3 (4.0-10.0)
[2017-05-07] MEDS: INSULIN SLIDING SCALE (NOVOLOG) 1 VIAL SQ SCH ×4 (06:48→23:06)
[2017-05-07 06:58] LABS: ALBUMIN 2.4 g/dl (3.4-5.0); ANION GAP 5 (8-16); BILIRUBIN,TOTAL 1.1 mg/dL (0.2-1.0); CO2 35 mmol/L (21-32); CREATININE 1.2 mg/dL (0.7-1.3); GLUCOSE,RANDOM 82 mg/dL (74-106); MAGNESIUM 1.9 mg/dL (1.8-2.4); PHOSPHOROUS 2.7 mg/dL (2.5-4.9); SGOT/AST 23 U/L (15-37); SGPT/ALT < 6 U/L (12-78); TOT PROT 5.5 g/dl (6.4-8.2)
[2017-05-07 07:01] LABS: ALK PHOS 83 U/L (45-117); TROPONIN I 0.12 ng/ml (0.00-0.05)
--- NOTE | 2017-05-07 08:59 | PN ---
Teaching Attending Note Name of Resident: Richa Forde ATTENDING PHYSICIAN STATEMENT I saw and evaluated the patient. I reviewed the resident's note and discussed the case with the resident. I agree with the resident's findings and plan as documented. SUBJECTIVE: No chest pain , no SOB OBJECTIVE: Vital Signs Temperature 97.6 F 05/07/17 04:00 Pulse Rate 83 05/07/17 04:00 Respiratory Rate 16 05/07/17 04:00 Blood Pressure 125/79 05/07/17 04:00 O2 Sat by Pulse Oximetry (%) 97 05/06/17 21:00 GENERAL: awake, alert, and fully oriented, in no acute distress HEAD: Normal with no signs of trauma. EYES: EOM intact, no pallor or icterus. ENT: Ears normal, moist mucous membranes. NECK: Supple. LUNGS: Breath sounds equal, clear to auscultation bilaterally, no wheezes, no crackles, no accessory muscle use. HEART: Regular rate and rhythm, S1, S2 without murmur, rub or gallop. ABDOMEN: Ventral hernia, Soft, nontender, nondistended, normoactive bowel sounds , no guarding, no rebound, no hepatosplenomegaly, no masses. UPPER EXTREMITIES: 2+ pulses, warm, well-perfused, no edema. LOWER EXTREMITIES: Left: Erythema below the knee, improving comparing to yesterday , pulses intact +, trace edema NEUROLOGICAL: No facial droop, Power upper extremity-5/5; lower extremity- 3/5 B /L; Cranial nerves II through XII grossly intact. Normal speech, gait not observed. PSYCH: Normal mood, normal affect CBC, BMP 05/07/17 05:10 05/07/17 05:10 ASSESSMENT AND PLAN: 71 year old male that originally presented to ED on 05/02 with complaints of b/ l LE edema and LLE redness. #Cellulitis with Osteomyelitis of left big toe (confirmed on bone scan 05/03/17) .Wound culture shows no growth so far. Blood cultures are negative. He is followed by vascular service and receiving local wound care. He is improving , has no leukocytosis. No surgical intervention is planned at this time. -continue Cefazolin 2g daily now day 5 -Collegenase administration daily, as per podiatry #NSTEMI- elevated Troponins upon admission in the setting of uncontrolled AFIB. MIBI revealed reversible anterior wall perfusion defect.He has no active chest pain however he has been in bed since 05/02. He needs ccath in near future and is medically optimized. - will initiate transfer process with plan for ccath early next week. #Acute Kidney Injury- occured due to IV diuretics in combination with urinary retention. Now resolved after placement of Andujar. Creatinine remains stable and patient can be optimized for ccath contrast. Renal function to be monitored. Aceis were initially discontinued however may be restarted . #Traumatic Hematuria- occured after multiple attempts to place andujar while on anticoagulation. Slowly resolving and there is no drop in hemoglobin levels. - continue with flomax -continue with andujar catheter for now #Atrial Fibrillation- presented uncontrolled but rate has improved with adjustment of bbl dose. Normal EF as per echocardiogram. On anticoagulation with lovenox . #DM -Insulin sliding scale for coverage -FS BGM -Diabetic diet
[2017-05-07] MEDS ORDERED: PT OWN MED DRAWER 7, Y5N ONE (09:15)
[2017-05-07] MEDS: ASPIRIN 325 MG ENTERIC COATED TABLET (FP) PO SCH (09:17)
[2017-05-07] MEDS: TAMSULOSIN HCL 0.4 MG CAP.ER.24H (FP) PO SCH (09:17)
[2017-05-07] MEDS: METOPROLOL TARTRATE 50 MG TABLET (FP) PO SCH ×2 (09:17→23:05)
[2017-05-07] MEDS: POTASSIUM CHLORIDE TABS 20 MEQ TABLET.ER (FP) PO SCH (09:17)
--- NOTE | 2017-05-07 10:19 | PN ---
Progress Note, Physician History of Present Illness: HISTORY OF PRESENT ILLNESS: The patient admits he is supposed to be on 6 medications (he is not sure what for besides HTN and A-fib) but hasn't taken any of them in 6 months because he is a self-proclaimed "bad patient". His niece informs me she thinks it's been more than 6 months. He is supposed to be on Xarelto for A-fib. The patient states for the past 1 week his left LE has been getting swollen and red. The right LE started swelling yesterday and a large bubble formed, which is essentially why he is here. He states he has to stop after every few steps that he walks but denies SOB? He denies f/c, cough, n/v/d, CP, palpitations, hemoptysis, orthopnea, abd pain, back pain, hematuria, dysuria. The patient quit smoking 40 years ago and does not drink. Primary Physician/Optical Coating Technician: Dr. Jones (affiliated with [facility]; patient has not seen in > 1 year) pmh non complience mibi st more than 1 year ago stent many years ago - Current Medication List Current Medications: Active Medications Acetaminophen (Tylenol -) 650 mg PO Q6H PRN PRN Reason: FEVER OR PAIN Last Admin: 05/05/17 04:41 Dose: 650 mg Aspirin (Ecotrin -) 325 mg PO DAILY [facility] Last Admin: 05/07/17 09:17 Dose: 325 mg Collagenase (Santyl -) 1 applic TP DAILY [facility] Last Admin: 05/06/17 17:17 Dose: 1 applic Cefazolin Sodium/Dextrose (Ancef 2 Gm Premixed Ivpb -) 50 mls @ 100 mls/hr IVPB Q8H-IV [facility] Last Admin: 05/07/17 01:11 Dose: 100 mls/hr Sodium Chloride (1/2 Normal Saline) 1,000 mls @ 75 mls/hr IV ASDIR [facility] Last Admin: 05/07/17 01:11 Dose: 75 mls/hr Insulin Aspart (Novolog Vial Sliding Scale -) 1 vial SQ ACHS [facility] PRN Reason: Protocol Last Admin: 05/07/17 06:48 Dose: Not Given Metoprolol Tartrate (Lopressor -) 75 mg PO BID [facility] Last Admin: 05/07/17 09:17 Dose: 75 mg Nystatin (Nystop Powder -) 1 applic TP BID [facility] Last Admin: 05/07/17 09:18 Dose: 1 applic Potassium Chloride (K-Dur -) 20 meq PO DAILY [facility] Last Admin: 05/07/17 09:17 Dose: 20 meq Tamsulosin HCl (Flomax -) 0.4 mg PO DAILY@0830 [facility] Last Admin: 05/07/17 09:17 Dose: 0.4 mg - Objective Vital Signs: Vital Signs Temperature 97.6 F 05/07/17 04:00 Pulse Rate 83 05/07/17 04:00 Respiratory Rate 16 05/07/17 04:00 Blood Pressure 125/79 05/07/17 04:00 O2 Sat by Pulse Oximetry (%) 97 05/06/17 21:00 Eyes: Yes: WNL, Conjunctiva Clear, EOM Intact HENT: Yes: WNL, Atraumatic, Normocephalic Neck: Yes: WNL, Supple, Trachea Midline Cardiovascular: Yes: Pulse Irregular, S1, S2 Respiratory: Yes: WNL, Regular, CTA Bilaterally Gastrointestinal: Yes: WNL, Normal Bowel Sounds Genitourinary: Yes: WNL Musculoskeletal: Yes: WNL Extremities: Yes: Erythema Edema: Yes Integumentary: Yes: WNL Neurological: Yes: WNL, Alert, Oriented ...Motor Strength: WNL Psychiatric: Yes: WNL Labs: CBC, BMP 05/07/17 05:10 05/07/17 05:10 INR, PTT INR 1.30 (0.82-1.09) H 05/03/17 06:20 Problem List - Problems (1) A-fib Code(s): I48.91 - UNSPECIFIED ATRIAL FIBRILLATION Qualifiers: Atrial fibrillation type: chronic Qualified Code(s): I48.2 - Chronic atrial fibrillation (2) CHF (congestive heart failure) Code(s): I50.9 - HEART FAILURE, UNSPECIFIED Qualifiers: Congestive heart failure type: unspecified congestive heart failure type Congestive heart failure chronicity: unspecified congestive heart failure chronicity Qualified Code(s): I50.9 - Heart failure, unspecified (3) Cellulitis Code(s): L03.90 - CELLULITIS, UNSPECIFIED (4) DVT prophylaxis Code(s): HZM6361 - (5) Elevated troponin Code(s): R74.8 - ABNORMAL LEVELS OF OTHER SERUM ENZYMES (6) Foot ulcer Code(s): L97.509 - NON-PRESSURE CHRONIC ULCER OTH PRT UNSP FOOT W UNSP SEVERITY (7) Hypertension Code(s): I10 - ESSENTIAL (PRIMARY) HYPERTENSION (8) Hypokalemia Code(s): E87.6 - HYPOKALEMIA (9) Thrombocytopenia Code(s): D69.6 - THROMBOCYTOPENIA, UNSPECIFIED (10) Urinary tract infection Code(s): N39.0 - URINARY TRACT INFECTION, SITE NOT SPECIFIED Assessment/Plan chf acute ?nonstemi af htn dm cellulitis non-complience urinary retention hematuria post andujar catheter placement plan asa BB iv lasix mibi stress test positive for anterior wall ischemia. Patient should be AC for positive mibi st s/p nonstemi and AF if no strong contraindications from svcs. D/w nurse and ICU resident. will need c. cath when medicaly stable Patient requested transfer to [facility] (his customer pricing manager is dr. Jones) for c. cath. cc time 35 min
[2017-05-07] MEDS: COLLAGENASE CLOSTRIDIUM HIST. 30 GRAMS TUBE TP SCH (11:00)
--- NOTE | 2017-05-07 14:16 | PN ---
Physical Exam: SUBJECTIVE: Patient seen and examined at bed side this morning. Says he is anxious and it is overwhelming to know about different tests and plan. No other complaints. Denies chest pain, sob, cough, palpitation, abdominal pain, nausea or vomiting. Sleep/Appetite normal. OBJECTIVE: Vital Signs Period Temp Pulse Resp BP Sys/Vásquez Pulse Ox Last 24 Hr 97.0 F-97.7 F 81-92 16-18 111-159/57-95 95-97 GENERAL: Elderly male, sitting in a chair, anxious, is awake, alert, and fully oriented, in no acute distress, andujar catheter in place. HEAD: Normal with no signs of trauma. EYES: EOM intact, no pallor or icterus. ENT: Ears normal, moist mucous membranes. NECK: Supple. LUNGS: Breath sounds equal, clear to auscultation bilaterally, no wheezes, no crackles, no accessory muscle use. HEART: Regular rate and rhythm, S1, S2 without murmur, rub or gallop. ABDOMEN: Ventral hernia, Soft, nontender, nondistended, normoactive bowel sounds , no guarding, no rebound, no hepatosplenomegaly, no masses. UPPER EXTREMITIES: 2+ pulses, warm, well-perfused, no edema. LOWER EXTREMITIES: Right: Dressing just changed, will not open today. Left: Erythema below the knee upto the ankle, mildly tender, blisters +, raised temperature, pulses intact +, ulcer at the base of the left great toe, minimal drainage, non erythematous. NEUROLOGICAL: No facial droop, Power upper extremity-5/5; lower extremity- 3/5 B /L; Cranial nerves II through XII grossly intact. Normal speech, gait not observed. PSYCH: Normal mood, normal affect. SKIN: Warm, dry, normal turgor, no rashes or lesions noted Laboratory Results - last 24 hr 05/06/17 05/06/17 05/07/17 17:11 21:27 05:10 WBC 6.3 D RBC 4.72 Hgb 12.7 Hct 39.7 MCV 84.0 MCHC 32.0 RDW 16.2 H Plt Count 101 L D MPV 10.0 Neutrophils % 75.6 Lymphocytes % 11.0 Monocytes % 12.4 H Eosinophils % 0.8 Basophils % 0.2 Sodium Potassium Chloride Carbon Dioxide Anion Gap BUN Creatinine Creat Clearance w eGFR POC Glucometer 94.03443 88.24133 Random Glucose Calcium Phosphorus Magnesium Total Bilirubin AST ALT Alkaline Phosphatase Creatine Kinase Troponin I Total Protein Albumin 05/07/17 05/07/17 05/07/17 05:10 05:54 10:51 WBC RBC Hgb Hct MCV MCHC RDW Plt Count MPV Neutrophils % Lymphocytes % Monocytes % Eosinophils % Basophils % Sodium 137 Potassium 4.4 Chloride 97 L Carbon Dioxide 35 H Anion Gap 5 L BUN 37 H Creatinine 1.2 D Creat Clearance w eGFR 59.35 POC Glucometer 83.11480 139.95840 Random Glucose 82 Calcium 8.0 L Phosphorus 2.7 Magnesium 1.9 Total Bilirubin 1.1 H D AST 23 ALT < 6 L Alkaline Phosphatase 83 Creatine Kinase 60 Troponin I 0.12 H D Total Protein 5.5 L Albumin 2.4 L Active Medications Generic Name Dose Route Start Last Admin Trade Name Freq PRN Reason Stop Dose Admin Acetaminophen 650 mg 05/02/17 11:20 05/05/17 04:41 Tylenol - PO 650 mg Q6H PRN Administration FEVER OR PAIN Aspirin 325 mg 05/04/17 10:00 05/07/17 09:17 Ecotrin - PO 325 mg DAILY [facility] Administration Collagenase 1 applic 05/04/17 10:00 05/07/17 11:00 Santyl - TP 1 applic DAILY [facility] Administration Enoxaparin Sodium 100 mg 05/07/17 12:45 Lovenox - SQ BID [facility] Cefazolin Sodium/Dextrose 50 mls @ 100 mls/hr 05/03/17 18:00 05/07/17 11:33 Ancef 2 Gm Premixed Ivpb - IVPB 100 mls/hr Q8H-IV [facility] Administration Sodium Chloride 1,000 mls @ 75 mls/hr 05/05/17 15:30 05/07/17 01:11 1/2 Normal Saline IV 75 mls/hr ASDIR [facility] Administration Insulin Aspart 1 vial 05/03/17 22:00 05/07/17 10:58 Novolog Vial Sliding Scale - SQ Not Given ACHS [facility] Protocol Metoprolol Tartrate 75 mg 05/05/17 12:15 05/07/17 09:17 Lopressor - PO 75 mg BID [facility] Administration Nystatin 1 applic 05/04/17 22:00 05/07/17 09:18 Nystop Powder - TP 1 applic BID [facility] Administration Potassium Chloride 20 meq 05/03/17 10:00 05/07/17 09:17 K-Dur - PO 20 meq DAILY [facility] Administration Tamsulosin HCl 0.4 mg 05/07/17 08:30 05/07/17 09:17 Flomax - PO 0.4 mg DAILY@0830 [facility] Administration ASSESSMENT/PLAN: Patient is a 71 year old male with past medical history of history of Afib ( previously on Xarelto and Lopressor; has not taken them since 2014), HTN, CAD s/ p one stent at [facility] approx 15 yrs ago, and CHF (unknown type) admitted for evaluation of left lower extremity redness. # Hematuria likely due to trauma during manipulation while placing a andujar- patient was on Lovenox Still has hematuria, Output 24 hours 1800mls # AGUSTÍN likely post renal cause-obstructive vs intrarenal- Improved Creatinine 1.6--->1.2 improved after placing andujar, IV hydration, Avoided NSAIDs Continue IV 1/2NS @ 75mls.hr Patient takes Motrin PM every night for sleep, advised to avoid it. # Cellulitis of the left lower extremity with osteomyelitis of the left great toe No Leukocytosis today Bone scan done on 05/03/17 showed osteomyeltitis Wound culture grew Gm negative Lactose non fermenting organism (likely skin seymour) Continue IV Cefazolin 2gm, change as per C/S Collagenase TP Daily-wound Once patient is stable, would consider bone biopsy. Physical therapy # Increased Troponin: NSTEMI Admitted in Tele. Continuous cardiac monitoring Started Lovenox 100mg sq BID, patient still has hematuria but H/H is stable, will closely monitor H/H. Will repeat CBC at 8pm today. Positive stress test, patient was scheduled to be transferred to [facility], they accepted the patient. However, they cancelled it as patients cornice maker ( Dr. Jones) doesn't do caths any more in that hospital. Patient doesn;t want to see another cornice maker. Call placed to Dr. Jones who said he will be scheduled for cath on Wednesday (05/11/17). NPO at midnight on 05/10/2017 and to hold off lovenox. Aspirin 325mg PO Daily # Atrial fibrillation-rate uncontrolled On Enoxaparin 100mg BID; Metoprolol 75 mg BID CBC to be repeated at 8pm today. Patient was On Xarelto 20mg PO Daily at home (last picked up the medication from [facility] on 2014) # Hypertension-not controlled Lisinopril 10mg PO BID # Hyperthyroidism TSH 0.34; T4-1.74; Free T3-pending. F/up with sand analyst outpatient. # Anxiety/ sleep disturbance Patient said that he takes Motrin PM every night for sleep. Advised patient not to take it daily as it may cause AGUSTÍN. Benadryl 25mg PO PRN HS Counseling. # Depression: c/o sad; depressed. Psyc consult appreciated: no medication at this time, psych to follow # Newly diagnosed DM HbA1c 7.1 Insulin sliding scale Finger stick glucose Diabetic diet # CHF Hold Lasix 40mg IV Daily due to AGUSTÍN Strict I's and O's Daily Weight Echo: Left ventricular systolic function normal, Mild pulmonary HTN # Hypokalemia K-Dur 20 mEq daily # Thrombocytopenia Monitor platelets as patient is on Lovenox # FEN IV 1/2 NS @ 75mls.hr Electrolytes Diabetic/sodium controlled diet # Prophylaxis For DVT: On Enoxaparin For GI: Not indicated # Code Status: Full Code # Dispo: Admitted in Tele. Duration of stay unknown. Called pharmacy- patient is non compliant. Illness, Investigation and Plan of care explained to the patient and his sister. Call placed to patients sister Ms. Josiane Whitlock [phone]. They verbalized understanding. Case seen and discussed with Dr. Figueroa. Visit type - Emergency Visit Emergency Visit: Yes ED Registration Date: 05/02/17 Care time: The patient presented to the Emergency Department on the above date and was hospitalized for further evaluation of their emergent condition. - New Patient This patient is new to me today: No - Critical Care Critical Care patient: No
[2017-05-07] MEDS: ENOXAPARIN NA (PORCINE) 100 MG/1 ML DISP.SYRIN SQ SCH ×2 (15:14→23:05)
--- NOTE | 2017-05-07 15:31 | PN ---
Progress Note, Physician History of Present Illness: Pt seen and examined at bedside. He is awake and alert. He still has hematuria. - Current Medication List Current Medications: Active Medications Acetaminophen (Tylenol -) 650 mg PO Q6H PRN PRN Reason: FEVER OR PAIN Last Admin: 05/05/17 04:41 Dose: 650 mg Aspirin (Ecotrin -) 325 mg PO DAILY [facility] Last Admin: 05/07/17 09:17 Dose: 325 mg Collagenase (Santyl -) 1 applic TP DAILY [facility] Last Admin: 05/07/17 11:00 Dose: 1 applic Enoxaparin Sodium (Lovenox -) 100 mg SQ BID [facility] Last Admin: 05/07/17 15:14 Dose: 100 mg Cefazolin Sodium/Dextrose (Ancef 2 Gm Premixed Ivpb -) 50 mls @ 100 mls/hr IVPB Q8H-IV [facility] Last Admin: 05/07/17 11:33 Dose: 100 mls/hr Sodium Chloride (1/2 Normal Saline) 1,000 mls @ 75 mls/hr IV ASDIR [facility] Last Admin: 05/07/17 01:11 Dose: 75 mls/hr Insulin Aspart (Novolog Vial Sliding Scale -) 1 vial SQ ACHS [facility] PRN Reason: Protocol Last Admin: 05/07/17 10:58 Dose: Not Given Metoprolol Tartrate (Lopressor -) 75 mg PO BID [facility] Last Admin: 05/07/17 09:17 Dose: 75 mg Nystatin (Nystop Powder -) 1 applic TP BID [facility] Last Admin: 05/07/17 09:18 Dose: 1 applic Potassium Chloride (K-Dur -) 20 meq PO DAILY [facility] Last Admin: 05/07/17 09:17 Dose: 20 meq Tamsulosin HCl (Flomax -) 0.4 mg PO DAILY@0830 [facility] Last Admin: 05/07/17 09:17 Dose: 0.4 mg - Objective Vital Signs: Vital Signs Temperature 97.5 F L 05/07/17 14:00 Pulse Rate 97 H 05/07/17 14:00 Respiratory Rate 18 05/07/17 14:00 Blood Pressure 118/79 05/07/17 14:00 O2 Sat by Pulse Oximetry (%) 95 05/07/17 09:00 Constitutional: Yes: Calm Eyes: Yes: Conjunctiva Clear HENT: Yes: Atraumatic Cardiovascular: Yes: S1, S2 Respiratory: Yes: CTA Bilaterally Gastrointestinal: Yes: Soft Genitourinary: Yes: Andujar Present, Hematuria Musculoskeletal: Yes: WNL Edema: Yes Edema: LLE: Trace, RLE: Trace Integumentary: Yes: Erythema, Rash Neurological: Yes: Oriented Psychiatric: Yes: Oriented Labs: CBC, BMP 05/07/17 05:10 05/07/17 05:10 INR, PTT INR 1.30 (0.82-1.09) H 05/03/17 06:20 Problem List - Problems (1) A-fib Code(s): I48.91 - UNSPECIFIED ATRIAL FIBRILLATION Qualifiers: Atrial fibrillation type: chronic Qualified Code(s): I48.2 - Chronic atrial fibrillation (2) CHF (congestive heart failure) Code(s): I50.9 - HEART FAILURE, UNSPECIFIED Qualifiers: Congestive heart failure type: unspecified congestive heart failure type Congestive heart failure chronicity: unspecified congestive heart failure chronicity Qualified Code(s): I50.9 - Heart failure, unspecified (3) Urinary retention Code(s): R33.9 - RETENTION OF URINE, UNSPECIFIED (4) AGUSTÍN (acute kidney injury) Code(s): N17.9 - ACUTE KIDNEY FAILURE, UNSPECIFIED Assessment/Plan Current Medications Generic Name Dose Route Start Last Admin Trade Name Freq PRN Reason Stop Dose Admin Acetaminophen 650 mg 05/02/17 11:20 05/05/17 04:41 Tylenol - PO 650 mg Q6H PRN Administration FEVER OR PAIN Aspirin 325 mg 05/04/17 10:00 05/07/17 09:17 Ecotrin - PO 325 mg DAILY [facility] Administration Collagenase 1 applic 05/04/17 10:00 05/07/17 11:00 Santyl - TP 1 applic DAILY [facility] Administration Enoxaparin Sodium 100 mg 05/07/17 12:45 05/07/17 15:14 Lovenox - SQ 100 mg BID [facility] Administration Cefazolin Sodium/Dextrose 50 mls @ 100 mls/hr 05/03/17 18:00 05/07/17 11:33 Ancef 2 Gm Premixed Ivpb - IVPB 100 mls/hr Q8H-IV [facility] Administration Sodium Chloride 1,000 mls @ 75 mls/hr 05/05/17 15:30 05/07/17 01:11 1/2 Normal Saline IV 75 mls/hr ASDIR [facility] Administration Insulin Aspart 1 vial 05/03/17 22:00 05/07/17 10:58 Novolog Vial Sliding Scale - SQ Not Given ACHS [facility] Protocol Metoprolol Tartrate 75 mg 05/05/17 12:15 05/07/17 09:17 Lopressor - PO 75 mg BID [facility] Administration Nystatin 1 applic 05/04/17 22:00 05/07/17 09:18 Nystop Powder - TP 1 applic BID [facility] Administration Potassium Chloride 20 meq 05/03/17 10:00 05/07/17 09:17 K-Dur - PO 20 meq DAILY [facility] Administration Tamsulosin HCl 0.4 mg 05/07/17 08:30 05/07/17 09:17 Flomax - PO 0.4 mg DAILY@0830 [facility] Administration Impression 1. AGUSTÍN likely from obstruction 2. a-fib 3. HTN 4. cellulitis 5. obstructive uropathy - 900 cc on bladder scan 6. BPH 7. CHF 8. DM Plan - cont with fluids - renal function is improving, will monitor closely as pt is scheduled for cath next week - avoid nsaids - monitor potassium as he is on potassium supplements - monitor urine output, he still has hematuria - etiology miladys obstructive uropathy - flush andujar if output decreases - will follow
--- NOTE | 2017-05-07 15:50 | PN ---
Progress Note, Physician History of Present Illness: OOB in chair No c/o leg or foot pain No fever/ chills WBC improved- WNL BC (-) Wound c/s mixed - Current Medication List Current Medications: Active Medications Acetaminophen (Tylenol -) 650 mg PO Q6H PRN PRN Reason: FEVER OR PAIN Last Admin: 05/05/17 04:41 Dose: 650 mg Aspirin (Ecotrin -) 325 mg PO DAILY [facility] Last Admin: 05/07/17 09:17 Dose: 325 mg Collagenase (Santyl -) 1 applic TP DAILY [facility] Last Admin: 05/07/17 11:00 Dose: 1 applic Enoxaparin Sodium (Lovenox -) 100 mg SQ BID [facility] Last Admin: 05/07/17 15:14 Dose: 100 mg Cefazolin Sodium/Dextrose (Ancef 2 Gm Premixed Ivpb -) 50 mls @ 100 mls/hr IVPB Q8H-IV [facility] Last Admin: 05/07/17 11:33 Dose: 100 mls/hr Sodium Chloride (1/2 Normal Saline) 1,000 mls @ 75 mls/hr IV ASDIR [facility] Last Admin: 05/07/17 01:11 Dose: 75 mls/hr Insulin Aspart (Novolog Vial Sliding Scale -) 1 vial SQ ACHS [facility] PRN Reason: Protocol Last Admin: 05/07/17 10:58 Dose: Not Given Metoprolol Tartrate (Lopressor -) 75 mg PO BID [facility] Last Admin: 05/07/17 09:17 Dose: 75 mg Nystatin (Nystop Powder -) 1 applic TP BID [facility] Last Admin: 05/07/17 09:18 Dose: 1 applic Potassium Chloride (K-Dur -) 20 meq PO DAILY [facility] Last Admin: 05/07/17 09:17 Dose: 20 meq Tamsulosin HCl (Flomax -) 0.4 mg PO DAILY@0830 [facility] Last Admin: 05/07/17 09:17 Dose: 0.4 mg - Objective Vital Signs: Vital Signs Temperature 97.5 F L 05/07/17 14:00 Pulse Rate 97 H 05/07/17 14:00 Respiratory Rate 18 05/07/17 14:00 Blood Pressure 118/79 05/07/17 14:00 O2 Sat by Pulse Oximetry (%) 95 05/07/17 09:00 Constitutional: Yes: No Distress Eyes: Yes: Conjunctiva Clear Cardiovascular: Yes: Regular Rate and Rhythm, S1, S2 Respiratory: Yes: CTA Bilaterally Gastrointestinal: Yes: Normal Bowel Sounds, Soft, Abdomen, Obese. No: Tenderness Extremities: Yes: Other (decreased L LE edema/ erythema L great to ulcer dry but malodorous) Edema: Yes Labs: CBC, BMP 05/07/17 05:10 05/07/17 05:10 INR, PTT INR 1.30 (0.82-1.09) H 05/03/17 06:20 Assessment/Plan Cellulitis L LE- improved Dry L great toe ulcer + osteomyelitis by bone scan Chronic venous stasis dermatitis Leukocytosis- resolved Thrombocytopenia- improved Azotemia- improved Elevated LFTs- improved Toe ulcer wound c/s polymicrobial Will substitute zosyn pending c/s Will need additional 5 weeks of IV antibiotics for osteomyelitis of great toe
[2017-05-07] MEDS: PIPERACILLIN/TAZOB 3.375 GM 50 ML IVPB SCH (17:11)
[2017-05-07 20:50] LABS: MCH 27.2 pg (25.7-33.7); MCHC 32.5 g/dl (32.0-35.9); MEAN CELL VOLUME 83.8 fl (80-96); MEAN PLT VOLUME 9.8 fl (7.5-11.1); PLATELET COUNT 132 K/MM3 (134-434); RDW 15.6 % (11.9-15.9)
[2017-05-07] MEDS ORDERED: diphenhydrAMINE HCL 25 MG CAPSULE (FP) PO ONE (22:22)
[2017-05-08] MEDS: PIPERACILLIN/TAZOB 3.375 GM 50 ML IVPB SCH ×3 (02:04→17:16)
[2017-05-08] MEDS: INSULIN SLIDING SCALE (NOVOLOG) 1 VIAL SQ SCH ×4 (06:09→22:13)
[2017-05-08 07:32] LABS: ALBUMIN 2.7 g/dl (3.4-5.0); ANION GAP 11 (8-16); CALCIUM 8.2 mg/dL (8.5-10.1); CO2 29 mmol/L (21-32); GLUCOSE,RANDOM 112 mg/dL (74-106)
[2017-05-08 07:38] LABS: ALK PHOS 94 U/L (45-117); BILIRUBIN,TOTAL 1.5 mg/dL (0.2-1.0); CREATININE 1.1 mg/dL (0.7-1.3); SGOT/AST 27 U/L (15-37); SGPT/ALT < 6 U/L (12-78); TOT PROT 6.1 g/dl (6.4-8.2)
[2017-05-08 07:46] LABS: MCH 27.5 pg (25.7-33.7); MCHC 32.6 g/dl (32.0-35.9); MEAN CELL VOLUME 84.3 fl (80-96); MEAN PLT VOLUME 9.9 fl (7.5-11.1); PLATELET COUNT 102 K/MM3 (134-434); RDW 15.6 % (11.9-15.9); WHITE BLOOD COUNT 7.3 K/mm3 (4.0-10.0)
--- NOTE | 2017-05-08 08:43 | PN ---
Physical Exam: SUBJECTIVE: Patient seen and examined. sitting comfortably in chair eating breakfast. denies chest pain, sob, palpitations, headache, abdominal pain, hematochezia, melena. c/o occasional penile pain when andujar gets caught on something around 5pm he started to have bright red blood and clots at the meatus. bladder irrigation revealed more dark blood. Dr. Benedict called and updated on bleeding ; continue to monitor, no interventions at this time. OBJECTIVE: Vital Signs Period Temp Pulse Resp BP Sys/Vásquez Pulse Ox Last 24 Hr 97.3 F-97.8 F 87-102 18-18 105-132/76-86 95-95 GENERAL: The patient is awake, alert, and fully oriented, in no acute distress. EYES: PERRL, extraocular movements intact, sclera anicteric, conjunctiva clear. No ptosis. ENT: oropharynx clear without exudates, moist mucous membranes. NECK: Trachea midline, supple, thick neck LUNGS: Breath sounds equal, clear to auscultation bilaterally, no wheezes, no crackles HEART: Regular rate and rhythm, S1, S2 without murmur, rub or gallop. ABDOMEN: Soft, nontender, normoactive bowel sounds,large reducible ventral hernia in LLQ. no suprapubic tenderness. EXTREMITIES: weak b/l DP pulses, warm, erythematous, venous stasis changes in left lower leg with few fluid filled blisters 1x1cm. 3+ pitting edema in b/l feet.right leg with open ulcer with serous discharge and borders with weeping with clear serous fluid. left great toe with indurated ulcer with serous discharge. NEUROLOGICAL: Normal speech, facial symmetry. Andujar in place with mix of bright and dark red blood. Genital exam without scrotal swelling, few clots around meatus, nontender penis. Laboratory Results - last 24 hr 05/07/17 05/07/17 05/07/17 05:54 10:51 16:30 WBC RBC Hgb Hct MCV MCHC RDW Plt Count MPV Sodium Potassium Chloride Carbon Dioxide Anion Gap BUN Creatinine Creat Clearance w eGFR POC Glucometer 83.91338 139.06670 153.45512 Random Glucose Calcium Total Bilirubin AST ALT Alkaline Phosphatase Total Protein Albumin 05/07/17 05/07/17 05/08/17 20:15 22:00 05:20 WBC 8.0 7.3 RBC 4.67 4.90 Hgb 12.7 13.5 Hct 39.2 41.3 MCV 83.8 84.3 MCHC 32.5 32.6 RDW 15.6 15.6 Plt Count 132 L D 102 L D MPV 9.8 9.9 Sodium Potassium Chloride Carbon Dioxide Anion Gap BUN Creatinine Creat Clearance w eGFR POC Glucometer 120.76856 Random Glucose Calcium Total Bilirubin AST ALT Alkaline Phosphatase Total Protein Albumin 05/08/17 05:20 WBC RBC Hgb Hct MCV MCHC RDW Plt Count MPV Sodium 137 Potassium 4.0 Chloride 97 L Carbon Dioxide 29 Anion Gap 11 BUN 30 H Creatinine 1.1 Creat Clearance w eGFR > 60 POC Glucometer Random Glucose 112 H D Calcium 8.2 L Total Bilirubin 1.5 H D AST 27 ALT < 6 L Alkaline Phosphatase 94 Total Protein 6.1 L Albumin 2.7 L Active Medications Generic Name Dose Route Start Last Admin Trade Name Freq PRN Reason Stop Dose Admin Acetaminophen 650 mg 05/02/17 11:20 05/05/17 04:41 Tylenol - PO 650 mg Q6H PRN Administration FEVER OR PAIN Aspirin 325 mg 05/04/17 10:00 05/07/17 09:17 Ecotrin - PO 325 mg DAILY KENDELL Administration Collagenase 1 applic 05/04/17 10:00 05/07/17 11:00 Santyl - TP 1 applic DAILY [facility]LL Administration Enoxaparin Sodium 100 mg 05/07/17 12:45 05/07/17 23:05 Lovenox - SQ 100 mg BID KENDELL Administration Sodium Chloride 1,000 mls @ 75 mls/hr 05/05/17 15:30 05/07/17 17:11 1/2 Normal Saline IV 75 mls/hr ASDIR KENDELL Administration Piperacillin Sod/Tazobactam Sod 50 mls @ 100 mls/hr 05/07/17 16:45 05/08/17 02: 04 Zosyn 3.375gm Ivpb (Pre-Docked) IVPB 100 mls/hr Q8H-IV KEN[facility]LL Administration Protocol Insulin Aspart 1 vial 05/03/17 22:00 05/08/17 06:09 Novolog Vial Sliding Scale - SQ Not Given ACHS KENDELL Protocol Metoprolol Tartrate 75 mg 05/05/17 12:15 05/07/17 23:05 Lopressor - PO 75 mg BID KEN[facility]LL Administration Nystatin 1 applic 05/04/17 22:00 05/07/17 23:07 Nystop Powder - TP 1 applic BID [facility]LL Administration Potassium Chloride 20 meq 05/03/17 10:00 05/07/17 09:17 K-Dur - PO 20 meq DAILY KEN[facility]LL Administration Tamsulosin HCl 0.4 mg 05/07/17 08:30 05/07/17 09:17 Flomax - PO 0.4 mg DAILY@0830 [facility] Administration ASSESSMENT/PLAN: 71 yr old man with HTN, daistolic CHF, Afib CAD s/p one stent presented to ED with worsening exertional dyspnea and right lower leg ulcer found to have NSTEMI and osteomyelitis. #Gross Hematuria - post urinary retention and traumatic andujar insertion - continous bleeding through andujar, today worsening bleeding from penis with multiple clots, no improvement with irrigation, Dr. Benedict notified. - hold lovenox, repeat cbc with plan to transfuse if drop in h/h <8.0 hgb as pt with cardiac hx - also monitor platelet count, currently 102 - continue irrigation - continue flomax #AGUSTÍN - in setting of diuretic use/contrast use improved encourage po hydration, stop IVF fluids as patient has CHF #NSTEMI - pt failed stress test - for transfer to [place] on Wednesday for cardiac cath - asa 325 po daily #Afib rate controlled with metoprolol 75mg po BID #osteomyelitis of left great toe with cellulitis of left lower leg/ulcer on right lower leg - daily dressing changes, xeroforom on right leg ulcer - zosyn 3.375gm q8hr pending final cultures - santly in left toe #DM II uncontrolled NISS and BGM ACHS HTN lisinopril 10mg po BID DVT - contraindicated; pt acutely bleeding diet:diabetic diet Visit type - Emergency Visit Emergency Visit: No - New Patient This patient is new to me today: Yes Date on this admission: 05/08/17 - Critical Care Critical Care patient: No
--- NOTE | 2017-05-08 08:52 | PN ---
Progress Note, Physician Chief Complaint: seen and examined in coverage for Paco Denies chest pain or SOB TELE: AF, episode NSVT Andujar with blood. Has been an issue last few days. - Current Medication List Current Medications: Active Medications Acetaminophen (Tylenol -) 650 mg PO Q6H PRN PRN Reason: FEVER OR PAIN Last Admin: 05/05/17 04:41 Dose: 650 mg Aspirin (Ecotrin -) 325 mg PO DAILY [facility] Last Admin: 05/07/17 09:17 Dose: 325 mg Collagenase (Santyl -) 1 applic TP DAILY [facility] Last Admin: 05/07/17 11:00 Dose: 1 applic Enoxaparin Sodium (Lovenox -) 100 mg SQ BID [facility] Last Admin: 05/07/17 23:05 Dose: 100 mg Sodium Chloride (1/2 Normal Saline) 1,000 mls @ 75 mls/hr IV ASDIR [facility] Last Admin: 05/07/17 17:11 Dose: 75 mls/hr Piperacillin Sod/Tazobactam Sod (Zosyn 3.375gm Ivpb (Pre-Docked)) 50 mls @ 100 mls/hr IVPB Q8H-IV KENDELL PRN Reason: Protocol Last Admin: 05/08/17 02:04 Dose: 100 mls/hr Insulin Aspart (Novolog Vial Sliding Scale -) 1 vial SQ ACHS KENDELL PRN Reason: Protocol Last Admin: 05/08/17 06:09 Dose: Not Given Metoprolol Tartrate (Lopressor -) 75 mg PO BID [facility] Last Admin: 05/07/17 23:05 Dose: 75 mg Nystatin (Nystop Powder -) 1 applic TP BID [facility] Last Admin: 05/07/17 23:07 Dose: 1 applic Potassium Chloride (K-Dur -) 20 meq PO DAILY [facility] Last Admin: 05/07/17 09:17 Dose: 20 meq Tamsulosin HCl (Flomax -) 0.4 mg PO DAILY@0830 [facility] Last Admin: 05/07/17 09:17 Dose: 0.4 mg - Objective Vital Signs: Vital Signs Temperature 97.5 F L 05/08/17 06:00 Pulse Rate 93 H 05/08/17 06:00 Respiratory Rate 18 05/08/17 06:00 Blood Pressure 105/85 05/08/17 06:00 O2 Sat by Pulse Oximetry (%) 95 05/07/17 21:00 Constitutional: Yes: No Distress Eyes: Yes: Conjunctiva Clear Cardiovascular: Yes: Pulse Irregular Respiratory: Yes: CTA Bilaterally Gastrointestinal: Yes: Soft Edema: Yes Edema: LLE: 1+ (venodynes), RLE: 1+ (venodynes) Neurological: Yes: Alert, Oriented Labs: CBC, BMP 05/08/17 05:20 05/08/17 05:20 INR, PTT INR 1.30 (0.82-1.09) H 05/03/17 06:20 - ....Imaging EKG: Image Reviewed Assessment/Plan Assessment/Plan CHF NSTEMI AF htn dm cellulitis non-compliance urinary retention hematuria post andujar catheter placement Plan: ASA and B-Lauren Stress test positive for anterior wall ischemia. Patient is on AC for positive stress test s/p nonstemi and AF-- if no strong contraindications from svcs. Will need c. cath when medicaly stable Patient requested transfer to [place] (his business development assistant is Dr. Jones). Blas, in coverage for Paco
[2017-05-08] MEDS ORDERED: PT OWN MED DRAWER 7, Y5N ONE ×2 (08:55→23:38)
[2017-05-08] MEDS: POTASSIUM CHLORIDE TABS 20 MEQ TABLET.ER (FP) PO SCH (09:01)
[2017-05-08] MEDS: TAMSULOSIN HCL 0.4 MG CAP.ER.24H (FP) PO SCH (09:01)
[2017-05-08] MEDS: METOPROLOL TARTRATE 50 MG TABLET (FP) PO SCH ×2 (09:01→22:13)
[2017-05-08] MEDS: ASPIRIN 325 MG ENTERIC COATED TABLET (FP) PO SCH (09:01)
[2017-05-08] MEDS: NYSTATIN POWDER 100,000 UNITS/GM - 15 GM TOPICAL POWDER TP SCH ×2 (09:04→22:15)
--- NOTE | 2017-05-08 10:12 | PN ---
Progress Note (short form) - Note Progress Note: RENAL Pt is awake and alert sitting on side of bed feels better still has hematuria Last Vital Signs Temp Pulse Resp BP Pulse Ox 97.5 F L 93 H 18 105/85 95 05/08/17 06:00 05/08/17 06:00 05/08/17 06:00 05/08/17 06:00 05/07/17 21:00 lungs cler cvs s1 s2 rr abd soft ext +edema L greater than R neuro a+ox3 CBC, BMP 05/08/17 05:20 05/08/17 05:20 Impression 1. AGUSTÍN likely from obstruction- improved 2. a-fib 3. HTN 4. cellulitis 5. obstructive uropathy - 900 cc on bladder scan. Andujar with hematuria 6. BPH 7. CHF 8. DM 9. has proteinuria which needs to be evaluated once the urine clears Plan - cont with fluids - renal function is improving, will monitor closely as pt is scheduled for cath next week - avoid nsaids - monitor urine output, he still has hematuria - flush andujar if output decreases MV
[2017-05-08] MEDS: ENOXAPARIN NA (PORCINE) 100 MG/1 ML DISP.SYRIN SQ SCH (10:17)
--- NOTE | 2017-05-08 10:44 | PN ---
Teaching Attending Note Name of Resident: Jorge A Morrell ATTENDING PHYSICIAN STATEMENT I saw and evaluated the patient. I reviewed the resident's note and discussed the case with the resident. I agree with the resident's findings and plan as documented. SUBJECTIVE: No chest pain , no SOB . Had episode of NSVT on telemetry OBJECTIVE: Vital Signs Temperature 97.5 F L 05/08/17 06:00 Pulse Rate 93 H 05/08/17 06:00 Respiratory Rate 18 05/08/17 06:00 Blood Pressure 105/85 05/08/17 06:00 O2 Sat by Pulse Oximetry (%) 95 05/07/17 21:00 CBC, BMP 05/08/17 05:20 GENERAL: awake, alert, and fully oriented, in no acute distress HEAD: Normal with no signs of trauma. EYES: EOM intact, no pallor or icterus. ENT: Ears normal, moist mucous membranes. NECK: Supple. LUNGS: Breath sounds equal, clear to auscultation bilaterally, no wheezes, no crackles, no accessory muscle use. HEART: Regular rate and rhythm, S1, S2 without murmur, rub or gallop. ABDOMEN: Ventral hernia, Soft, nontender, nondistended, normoactive bowel sounds , no guarding, no rebound, no hepatosplenomegaly, no masses. UPPER EXTREMITIES: 2+ pulses, warm, well-perfused, no edema. LOWER EXTREMITIES: Left: Erythema below the knee, improving comparing to yesterday , pulses intact +, 2 plus edema NEUROLOGICAL: No facial droop, Power upper extremity-5/5; lower extremity- 3/5 B /L; Cranial nerves II through XII grossly intact. Normal speech, gait not observed. PSYCH: Normal mood, normal affect 05/08/17 05:20 ASSESSMENT AND PLAN: 71 year old male that originally presented to ED on 05/02 with complaints of b/ l LE edema and LLE redness. #Cellulitis with Osteomyelitis of left big toe (confirmed on bone scan 05/03/17) .Wound culture shows no growth so far. Blood cultures are negative. He is followed by vascular service and receiving local wound care. He is improving , has no leukocytosis. No surgical intervention is planned at this time. -will need 5 more weeks of IV antibiotics , today is day . Currently on Zosyn IV . -Collegenase administration daily, as per podiatry #NSTEMI- elevated Troponins upon admission in the setting of uncontrolled AFIB. MIBI revealed reversible anterior wall perfusion defect.He has no active chest pain . Had NSVT yesterday . Plan is to undergo ccath on wednesday. Transfer is accepted by [facility] . - will initiate transfer process with plan for ccath early next week. #Acute Kidney Injury- occured due to IV diuretics in combination with urinary retention. Now resolved after placement of Andujar. Creatinine remains stable and patient receive ccath contrast. Renal function to be monitored after due to risk of contrast induced nephropathy. Aceis were initially discontinued however may be restarted now at low dose. - discontinue IV fluids and encourage PO hydration . #Traumatic Hematuria- occured after multiple attempts to place andujar while on anticoagulation. Slowly resolving and there is no drop in hemoglobin levels. - continue with flomax -continue with andujar for now #Atrial Fibrillation- presented uncontrolled but rate has improved with adjustment of bbl dose. Normal EF as per echocardiogram. On anticoagulation with lovenox .
[2017-05-08] MEDS: COLLAGENASE CLOSTRIDIUM HIST. 30 GRAMS TUBE TP SCH (11:00)
[2017-05-08] MEDS ORDERED: MAGNESIUM SULF 50% (8.12 MEQ/2 ML-1 GM VIAL) IVPB ONE (12:04)
[2017-05-08] MEDS: SODIUM CHLORIDE 0.45% 1,000 ML IV SCH (16:50)
[2017-05-08] MEDS ORDERED: diphenhydrAMINE HCL 25 MG CAPSULE (FP) PO ONE (21:00)
[2017-05-08 21:39] LABS: BASOPHIL 0.5 % (0-2.0); EOSINOPHIL 0.4 % (0-4.5); MCH 26.6 pg (25.7-33.7); MCHC 32.1 g/dl (32.0-35.9); MEAN PLT VOLUME 10.3 fl (7.5-11.1); NEUTROPHILS 86.1 % (42.8-82.8); PLATELET COUNT 161 K/MM3 (134-434); RDW 15.6 % (11.9-15.9); WHITE BLOOD COUNT 15.1 K/mm3 (4.0-10.0)
--- NOTE | 2017-05-08 22:55 | HOSP ---
Subjective - Review of Symptoms Events since last encounter: Paged regarding pt's urinary output. Pt has 10-20 cc of bloody urine output since 7 pm. 18 caudet catheter manipulated and flushed several times with very little return. 18 caudet removed and 18 andujar catheter placed. No return of urine initially. Pt repositioned frequently to move clot - very minimal return of bloody urine s/p repositioning. After this no return of urine but pt instructed to continuously reposition himself and to let us know if pain or pressure develops in abdomen. Andujar catheter balloon inflated at this time and catheter taped around leg. Hgb noted at 12.4; WBC noted at 15 Physical Examination Vital Signs: Vital Signs Temperature 97.5 F L 05/08/17 15:00 Pulse Rate 86 05/08/17 15:00 Respiratory Rate 18 05/08/17 15:00 Blood Pressure 106/75 05/08/17 15:00 O2 Sat by Pulse Oximetry (%) 99 05/08/17 09:00 Labs: CBC, BMP 05/08/17 21:30 05/08/17 05:20 Visit type - Emergency Visit Emergency Visit: Yes ED Registration Date: 05/02/17 Care time: The patient presented to the Emergency Department on the above date and was hospitalized for further evaluation of their emergent condition. - New Patient This patient is new to me today: No - Critical Care Critical Care patient: No
[2017-05-09] MEDS ORDERED: diazePAM 2 MG TABLET PO ONE ×2 (00:48→21:53)
[2017-05-09] MEDS: PIPERACILLIN/TAZOB 3.375 GM 50 ML IVPB SCH ×3 (01:20→17:23)
[2017-05-09] MEDS: INSULIN SLIDING SCALE (NOVOLOG) 1 VIAL SQ SCH ×4 (06:20→22:59)
[2017-05-09 06:33] LABS: BASOPHIL 0.1 % (0-2.0); EOSINOPHIL 0.2 % (0-4.5); MCH 26.8 pg (25.7-33.7); MCHC 32.2 g/dl (32.0-35.9); MEAN CELL VOLUME 83.3 fl (80-96); MEAN PLT VOLUME 10.2 fl (7.5-11.1); PLATELET COUNT 141 K/MM3 (134-434); RDW 15.6 % (11.9-15.9); WHITE BLOOD COUNT 11.7 K/mm3 (4.0-10.0)
[2017-05-09 06:39] LABS: INR 1.35 (0.82-1.09); PROTHROMBIN TIME (PATIENT) 14.9 SEC (9.98-11.88)
[2017-05-09 07:13] LABS: ANION GAP 12 (8-16); CALCIUM 8.1 mg/dL (8.5-10.1); CO2 27 mmol/L (21-32); CREATININE 1.9 mg/dL (0.7-1.3); GLUCOSE,RANDOM 147 mg/dL (74-106); MAGNESIUM 2.1 mg/dL (1.8-2.4)
--- NOTE | 2017-05-09 08:15 | PN ---
Physical Exam: SUBJECTIVE: Patient seen and examined oob to chair. OBJECTIVE: Vital Signs Period Temp Pulse Resp BP Sys/Vásquez Pulse Ox Last 24 Hr 97.5 F-97.5 F 86-118 18-22 106-153/68-94 91-99 GENERAL: The patient is awake, alert, and fully oriented, in no acute distress. HEAD: Normal with no signs of trauma. EYES: PERRL, extraocular movements intact, sclera anicteric, conjunctiva clear. No ptosis. LUNGS: Breath sounds equal, clear to auscultation bilaterally, no wheezes, no crackles, no accessory muscle use. HEART: Irregular, S1, S2 without murmur, rub or gallop. ABDOMEN: Soft, nontender, nondistended, normoactive bowel sounds, no guarding, no rebound, no hepatosplenomegaly, no masses. : Andujar in place, bleeding around the meatus, dark red blood with clots in bag , UOP 400cc's in past 4 hours EXTREMITIES: 2+ bilateral lower extremity edema, erythema NEUROLOGICAL: Cranial nerves II through XII grossly intact. Normal speech, gait not observed. Laboratory Results - last 24 hr 05/08/17 05/08/17 05/08/17 05:46 11:59 16:53 WBC RBC Hgb Hct MCV MCHC RDW Plt Count MPV Neutrophils % Lymphocytes % Monocytes % Eosinophils % Basophils % INR Sodium Potassium Chloride Carbon Dioxide Anion Gap BUN Creatinine POC Glucometer 118.59643 161.42157 142.70019 Random Glucose Calcium Magnesium 05/08/17 05/08/17 05/09/17 20:58 21:30 05:15 WBC 15.1 H D RBC 4.66 Hgb 12.4 Hct 38.7 MCV 83.0 MCHC 32.1 RDW 15.6 Plt Count 161 D MPV 10.3 Neutrophils % 86.1 H Lymphocytes % 5.6 L D Monocytes % 7.4 Eosinophils % 0.4 Basophils % 0.5 INR Sodium 135 L Potassium 3.9 Chloride 96 L Carbon Dioxide 27 Anion Gap 12 BUN 33 H Creatinine 1.9 H D POC Glucometer 184.80313 Random Glucose 147 H D Calcium 8.1 L Magnesium 2.1 05/09/17 05/09/17 05:15 05:15 WBC 11.7 H RBC 4.48 Hgb 12.0 Hct 37.3 MCV 83.3 MCHC 32.2 RDW 15.6 Plt Count 141 MPV 10.2 Neutrophils % 87.0 H Lymphocytes % 5.6 L Monocytes % 7.1 Eosinophils % 0.2 Basophils % 0.1 INR 1.35 H Sodium Potassium Chloride Carbon Dioxide Anion Gap BUN Creatinine POC Glucometer Random Glucose Calcium Magnesium Active Medications Generic Name Dose Route Start Last Admin Trade Name Freq PRN Reason Stop Dose Admin Acetaminophen 650 mg 05/02/17 11:20 05/05/17 04:41 Tylenol - PO 650 mg Q6H PRN Administration FEVER OR PAIN Aspirin 325 mg 05/04/17 10:00 05/08/17 09:01 Ecotrin - PO 325 mg DAILY KENDELL Administration Collagenase 1 applic 05/04/17 10:00 05/08/17 11:00 Santyl - TP 1 applic DAILY KENDELL Administration Piperacillin Sod/Tazobactam Sod 50 mls @ 100 mls/hr 05/07/17 16:45 05/09/17 01: 20 Zosyn 3.375gm Ivpb (Pre-Docked) IVPB 100 mls/hr Q8H-IV KENDELL Administration Protocol Vancomycin HCl 1,500 mg/ 500 mls @ 250 mls/hr 05/09/17 07:54 Dextrose IVPB 05/09/17 09:53 ONCE ONE Protocol Insulin Aspart 1 vial 05/03/17 22:00 05/09/17 06:20 Novolog Vial Sliding Scale - SQ 2 units ACHS KENDELL Administration Protocol Metoprolol Tartrate 75 mg 05/05/17 12:15 05/08/17 22:13 Lopressor - PO 75 mg BID KENDELL Administration Nystatin 1 applic 05/04/17 22:00 05/08/17 22:15 Nystop Powder - TP 1 applic BID KENDELL Administration Potassium Chloride 20 meq 05/03/17 10:00 05/08/17 09:01 K-Dur - PO 20 meq DAILY KENDELL Administration Tamsulosin HCl 0.4 mg 05/07/17 08:30 05/08/17 09:01 Flomax - PO 0.4 mg DAILY@0830 KENDELL Administration ASSESSMENT AND PLAN 71 year-old male with a significant PMH of HTN, CAD s/p stent x 1, afib, and diastolic heart failure. Admitted for afib with RVR, osteo of left great toe, LLE cellulitis, NSTEMI, and AGUSTÍN. LLE Cellulitis Osteomyelitis of left great toe --05/03 bone scan confirms osteo --toe culture positive for pseudomonas and eterococcus --continue Zosyn (day #3); first dose Vanc ordered --will need 5 more weeks of IV antibiotics , today is day --collegenase administration daily, as per podiatry CAD NSTEMI --05/05 MIBI revealed reversible anterior wall perfusion defect --plan is to transfer to [place] on Wednesday for cath if otherwise stable --continue ASA, metoprolol; start Lipitor Diastolic heart failure --05/04 Echo: LV normal; RV normal; LAE; moderate MR; mild to moderate TR; mild pHTN --appears euvolemic Acute Kidney Injury Hematuria --gross hematuria, andujar clotted overnight, new andujar placed this am by urology; decision by urology not to start CBI --Cr bumped 1.1-->1.9, likely from overnight obstruction --h/h stable --continue Flomax Atrial Fibrillation with RVR --rate to 110s, continue metoprolol --holding anticoagulation secondary to hematuria Hypertension --continue metoprolol NIDDM --Novolog sliding scale coverage DVT prophylaxis: holding chemical prophylaxis due to bleeding Dispo: continues to require inpatient care. Visit type - Emergency Visit Emergency Visit: Yes ED Registration Date: 05/02/17 Care time: The patient presented to the Emergency Department on the above date and was hospitalized for further evaluation of their emergent condition. - New Patient This patient is new to me today: Yes Date on this admission: 05/09/17 - Critical Care Critical Care patient: No
[2017-05-09] MEDS: TAMSULOSIN HCL 0.4 MG CAP.ER.24H (FP) PO SCH (08:50)
--- NOTE | 2017-05-09 08:58 | PN ---
Progress Note, Physician Chief Complaint: at bedside irrigating renan blood from andujar. Creatinine bumped: ?obstruction. denies chest pain or SOB - Current Medication List Current Medications: Active Medications Acetaminophen (Tylenol -) 650 mg PO Q6H PRN PRN Reason: FEVER OR PAIN Last Admin: 05/05/17 04:41 Dose: 650 mg Aspirin (Ecotrin -) 325 mg PO DAILY [facility] Last Admin: 05/08/17 09:01 Dose: 325 mg Atorvastatin Calcium (Lipitor -) 40 mg PO HS [facility] Collagenase (Santyl -) 1 applic TP DAILY [facility] Last Admin: 05/08/17 11:00 Dose: 1 applic Piperacillin Sod/Tazobactam Sod (Zosyn 3.375gm Ivpb (Pre-Docked)) 50 mls @ 100 mls/hr IVPB Q8H-IV [facility] PRN Reason: Protocol Last Admin: 05/09/17 01:20 Dose: 100 mls/hr Vancomycin HCl 1,500 mg/ (Dextrose) 500 mls @ 250 mls/hr IVPB ONCE ONE PRN Reason: Protocol Stop: 05/09/17 09:53 Insulin Aspart (Novolog Vial Sliding Scale -) 1 vial SQ ACHS KENDELL PRN Reason: Protocol Last Admin: 05/09/17 06:20 Dose: 2 units Metoprolol Tartrate (Lopressor -) 75 mg PO BID [facility] Last Admin: 05/08/17 22:13 Dose: 75 mg Nystatin (Nystop Powder -) 1 applic TP BID [facility] Last Admin: 05/08/17 22:15 Dose: 1 applic Potassium Chloride (K-Dur -) 20 meq PO DAILY [facility] Last Admin: 05/08/17 09:01 Dose: 20 meq Tamsulosin HCl (Flomax -) 0.4 mg PO DAILY@0830 [facility] Last Admin: 05/08/17 09:01 Dose: 0.4 mg - Objective Vital Signs: Vital Signs Temperature 97.5 F L 05/09/17 05:00 Pulse Rate 118 H 05/09/17 05:00 Respiratory Rate 22 05/09/17 05:00 Blood Pressure 153/91 05/09/17 05:00 O2 Sat by Pulse Oximetry (%) 91 L 05/08/17 21:00 Constitutional: Yes: No Distress Cardiovascular: Yes: Pulse Irregular Respiratory: Yes: CTA Bilaterally Gastrointestinal: Yes: Soft Edema: No Neurological: Yes: Alert, Oriented Labs: CBC, BMP 05/09/17 05:15 05/09/17 05:15 INR, PTT INR 1.35 (0.82-1.09) H 05/09/17 05:15 Laboratory Tests 05/09/17 05/09/17 05:15 05:15 WBC 11.7 H Hgb 12.0 Plt Count 141 Sodium 135 L Potassium 3.9 BUN 33 H Creatinine 1.9 H D Magnesium 2.1 - ....Imaging EKG: Image Reviewed Assessment/Plan CHF NSTEMI AF htn dm cellulitis non-compliance urinary retention hematuria post andujar catheter placement Plan: ASA and B-Lauren. D/C Lovenox, ongoing bleed. Stress test positive for anterior wall ischemia. Will need c. cath when medicaly stable, although creatinine now up to 1.9-- renal following. Patient requested transfer to [place] (his counter intelligence technician is Dr. Jones). Blas, in coverage for Paco
--- NOTE | 2017-05-09 09:01 | PN ---
Progress Note (short form) - Note Progress Note: Pt w gross hematuria w 18 fr catheter non draining Irrigating w little return Replaced w 24 Fr andujar irrigated 600 cc out dark urine w blood Small clotts Now draining well Will need to be irrigated prn if stops draining cr 1.9 likely non obstructive hct 41 Follow repeat
[2017-05-09] MEDS ORDERED: VANCOMYCIN 1,500 MG in DEXTROSE 5%-WATER - 500 ML IVPB ONE (10:00)
[2017-05-09] MEDS: ASPIRIN 325 MG ENTERIC COATED TABLET (FP) PO SCH (11:04)
[2017-05-09] MEDS: POTASSIUM CHLORIDE TABS 20 MEQ TABLET.ER (FP) PO SCH (11:05)
[2017-05-09] MEDS: NYSTATIN POWDER 100,000 UNITS/GM - 15 GM TOPICAL POWDER TP SCH ×2 (11:07→22:59)
[2017-05-09] MEDS: METOPROLOL TARTRATE 50 MG TABLET (FP) PO SCH ×2 (11:18→22:56)
--- NOTE | 2017-05-09 12:01 | PN ---
Progress Note (short form) - Note Progress Note: RENAL Pt is awake and alert had more hematuria and stopped urinating andujar changed and is now draining. had clots. Probable trauma over night Last Vital Signs Temp Pulse Resp BP Pulse Ox 97.5 F L 118 H 22 153/91 91 L 05/09/17 05:00 05/09/17 05:00 05/09/17 05:00 05/09/17 05:00 05/08/17 21:00 lungs cler cvs s1 s2 rr abd soft ext +edema L greater than R neuro a+ox3 gu andujar in place,draing red urine CBC, BMP 05/09/17 05:15 05/09/17 05:15 Current Medications Generic Name Dose Route Start Last Admin Trade Name Freq PRN Reason Stop Dose Admin Acetaminophen 650 mg 05/02/17 11:20 05/05/17 04:41 Tylenol - PO 650 mg Q6H PRN Administration FEVER OR PAIN Aspirin 325 mg 05/04/17 10:00 05/09/17 11:04 Ecotrin - PO 325 mg DAILY [facility]ENDELL Administration Atorvastatin Calcium 40 mg 05/09/17 22:00 Lipitor - PO HS [facility]EN[facility] Collagenase 1 applic 05/04/17 10:00 05/08/17 11:00 Santyl - TP 1 applic DAILY [facility] Administration Piperacillin Sod/Tazobactam Sod 50 mls @ 100 mls/hr 05/07/17 16:45 05/09/17 11: 08 Zosyn 3.375gm Ivpb (Pre-Docked) IVPB 100 mls/hr Q8H-IV [facility]LL Administration Protocol Insulin Aspart 1 vial 05/03/17 22:00 05/09/17 06:20 Novolog Vial Sliding Scale - SQ 2 units ACHS KENDELL Administration Protocol Metoprolol Tartrate 75 mg 05/05/17 12:15 05/09/17 11:18 Lopressor - PO 75 mg BID [facility]EN[facility]LL Administration Nystatin 1 applic 05/04/17 22:00 05/09/17 11:07 Nystop Powder - TP 1 applic BID [facility]ENDELL Administration Potassium Chloride 20 meq 05/03/17 10:00 05/09/17 11:05 K-Dur - PO 20 meq DAILY [facility] Administration Tamsulosin HCl 0.4 mg 05/07/17 08:30 05/09/17 08:50 Flomax - PO 0.4 mg DAILY@0830 [facility]EN[facility] Administration Impression 1. AGUSTÍN likely from obstruction -again 2. a-fib 3. HTN 4. cellulitis 5. obstructive uropathy - 900 cc on bladder scan. Andujar with hematuria 6. BPH 7. CHF 8. DM 9. has proteinuria which needs to be evaluated once the urine clears Plan -continue andujar drainage...?CBI - renal function is improving, will monitor closely as pt is scheduled for cath next week - avoid nsaids - monitor urine output, flush andujar if output decreases MV
[2017-05-09] MEDS: COLLAGENASE CLOSTRIDIUM HIST. 30 GRAMS TUBE TP SCH (14:16)
[2017-05-09] MEDS ORDERED: ATORVASTATIN CA 20 MG TABLET (FP) ONE (21:48)
[2017-05-09] MEDS ORDERED: ATORVASTATIN CA 40 MG TABLET (FP) PO SCH (22:00)
[2017-05-09] MEDS: ATORVASTATIN CA 20 MG TABLET (FP) PO SCH (23:00)
[2017-05-10] MEDS: PIPERACILLIN/TAZOB 3.375 GM 50 ML IVPB SCH ×3 (01:54→17:50)
[2017-05-10 06:25] LABS: BASOPHIL 0.2 % (0-2.0); EOSINOPHIL 1.8 % (0-4.5); MCH 27.2 pg (25.7-33.7); MCHC 32.2 g/dl (32.0-35.9); MEAN CELL VOLUME 84.4 fl (80-96); MEAN PLT VOLUME 9.7 fl (7.5-11.1); NEUTROPHILS 72.8 % (42.8-82.8); PLATELET COUNT 82 K/MM3 (134-434)
[2017-05-10] MEDS: INSULIN SLIDING SCALE (NOVOLOG) 1 VIAL SQ SCH ×4 (06:36→22:14)
[2017-05-10 06:46] LABS: ALBUMIN 2.3 g/dl (3.4-5.0); ANION GAP 8 (8-16); CO2 30 mmol/L (21-32); CREATININE 1.5 mg/dL (0.7-1.3); GLUCOSE,RANDOM 89 mg/dL (74-106); SGOT/AST 28 U/L (15-37); SGPT/ALT 8 U/L (12-78)
[2017-05-10 06:49] LABS: ALK PHOS 77 U/L (45-117); BILIRUBIN,TOTAL 1.3 mg/dL (0.2-1.0); TOT PROT 5.5 g/dl (6.4-8.2)
--- NOTE | 2017-05-10 09:54 | PN ---
Progress Note, Physician History of Present Illness: HISTORY OF PRESENT ILLNESS: The patient admits he is supposed to be on 6 medications (he is not sure what for besides HTN and A-fib) but hasn't taken any of them in 6 months because he is a self-proclaimed "bad patient". His niece informs me she thinks it's been more than 6 months. He is supposed to be on Xarelto for A-fib. The patient states for the past 1 week his left LE has been getting swollen and red. The right LE started swelling yesterday and a large bubble formed, which is essentially why he is here. He states he has to stop after every few steps that he walks but denies SOB? He denies f/c, cough, n/v/d, CP, palpitations, hemoptysis, orthopnea, abd pain, back pain, hematuria, dysuria. The patient quit smoking 40 years ago and does not drink. Primary Physician/Test Boring Crew Chief: Dr. Jones (affiliated with [facility]; patient has not seen in > 1 year) pmh non complience mibi st more than 1 year ago stent many years ago - Current Medication List Current Medications: Active Medications Acetaminophen (Tylenol -) 650 mg PO Q6H PRN PRN Reason: FEVER OR PAIN Last Admin: 05/05/17 04:41 Dose: 650 mg Aspirin (Ecotrin -) 325 mg PO DAILY [facility] Last Admin: 05/09/17 11:04 Dose: 325 mg Atorvastatin Calcium (Lipitor -) 40 mg PO HS [facility] Last Admin: 05/09/17 23:00 Dose: 40 mg Collagenase (Santyl -) 1 applic TP DAILY [facility] Last Admin: 05/09/17 14:16 Dose: 1 applic Piperacillin Sod/Tazobactam Sod (Zosyn 3.375gm Ivpb (Pre-Docked)) 50 mls @ 100 mls/hr IVPB Q8H-IV KENDELL PRN Reason: Protocol Last Admin: 05/10/17 01:54 Dose: 100 mls/hr Insulin Aspart (Novolog Vial Sliding Scale -) 1 vial SQ ACHS KENDELL PRN Reason: Protocol Last Admin: 05/10/17 06:36 Dose: Not Given Metoprolol Tartrate (Lopressor -) 75 mg PO BID [facility] Last Admin: 05/09/17 22:56 Dose: 75 mg Nystatin (Nystop Powder -) 1 applic TP BID [facility] Last Admin: 05/09/17 22:59 Dose: 1 applic Potassium Chloride (K-Dur -) 20 meq PO DAILY [facility] Last Admin: 05/09/17 11:05 Dose: 20 meq Tamsulosin HCl (Flomax -) 0.4 mg PO DAILY@0830 [facility] Last Admin: 05/09/17 08:50 Dose: 0.4 mg - Objective Vital Signs: Vital Signs Temperature 96.3 F L 05/10/17 06:00 Pulse Rate 77 05/10/17 06:00 Respiratory Rate 16 05/10/17 06:00 Blood Pressure 130/74 05/10/17 06:00 O2 Sat by Pulse Oximetry (%) 96 05/09/17 22:00 Eyes: Yes: WNL, Conjunctiva Clear, EOM Intact HENT: Yes: WNL, Atraumatic, Normocephalic Neck: Yes: WNL, Supple, Trachea Midline Cardiovascular: Yes: Pulse Irregular, S1, S2 Respiratory: Yes: WNL, Regular, CTA Bilaterally Gastrointestinal: Yes: WNL, Normal Bowel Sounds Genitourinary: Yes: WNL Musculoskeletal: Yes: WNL Extremities: Yes: Erythema Edema: Yes Integumentary: Yes: WNL Neurological: Yes: WNL, Alert, Oriented ...Motor Strength: WNL Psychiatric: Yes: WNL Labs: CBC, BMP 05/10/17 05:10 05/10/17 05:10 INR, PTT INR 1.35 (0.82-1.09) H 05/09/17 05:15 Problem List - Problems (1) A-fib Code(s): I48.91 - UNSPECIFIED ATRIAL FIBRILLATION Qualifiers: Atrial fibrillation type: chronic Qualified Code(s): I48.2 - Chronic atrial fibrillation (2) CHF (congestive heart failure) Code(s): I50.9 - HEART FAILURE, UNSPECIFIED Qualifiers: Congestive heart failure type: unspecified congestive heart failure type Congestive heart failure chronicity: unspecified congestive heart failure chronicity Qualified Code(s): I50.9 - Heart failure, unspecified (3) Cellulitis Code(s): L03.90 - CELLULITIS, UNSPECIFIED (4) DVT prophylaxis Code(s): WDP0449 - (5) Elevated troponin Code(s): R74.8 - ABNORMAL LEVELS OF OTHER SERUM ENZYMES (6) Foot ulcer Code(s): L97.509 - NON-PRESSURE CHRONIC ULCER OTH PRT UNSP FOOT W UNSP SEVERITY (7) Hypertension Code(s): I10 - ESSENTIAL (PRIMARY) HYPERTENSION (8) Hypokalemia Code(s): E87.6 - HYPOKALEMIA (9) Thrombocytopenia Code(s): D69.6 - THROMBOCYTOPENIA, UNSPECIFIED (10) Urinary tract infection Code(s): N39.0 - URINARY TRACT INFECTION, SITE NOT SPECIFIED Assessment/Plan CHF NSTEMI AF htn dm cellulitis non-compliance urinary retention hematuria post andujar catheter placement Plan: ASA and B-Lauren. D/C Lovenox, ongoing bleed. Stress test positive for anterior wall ischemia. Will need c. cath when medicaly stable, although creatinine now up to 1.9-- renal following. Patient requested transfer to [place] (his swimming teacher is Dr. Jones). cc time 35 min
[2017-05-10] MEDS ORDERED: PT OWN MED DRAWER 7, Y5N ONE (10:43)
[2017-05-10] MEDS: METOPROLOL TARTRATE 50 MG TABLET (FP) PO SCH ×2 (11:01→22:11)
[2017-05-10] MEDS: ASPIRIN 325 MG ENTERIC COATED TABLET (FP) PO SCH (11:01)
[2017-05-10] MEDS: TAMSULOSIN HCL 0.4 MG CAP.ER.24H (FP) PO SCH (11:01)
[2017-05-10] MEDS: COLLAGENASE CLOSTRIDIUM HIST. 30 GRAMS TUBE TP SCH (11:02)
[2017-05-10] MEDS: NYSTATIN POWDER 100,000 UNITS/GM - 15 GM TOPICAL POWDER TP SCH ×2 (11:02→23:12)
[2017-05-10] MEDS: POTASSIUM CHLORIDE TABS 20 MEQ TABLET.ER (FP) PO SCH (11:47)
--- NOTE | 2017-05-10 13:30 | PN ---
Progress Note, Physician History of Present Illness: Pt seen and examined at bedside. He is awake and alert. He denies shortness of breath or chest pain. - Current Medication List Current Medications: Active Medications Acetaminophen (Tylenol -) 650 mg PO Q6H PRN PRN Reason: FEVER OR PAIN Last Admin: 05/05/17 04:41 Dose: 650 mg Aspirin (Ecotrin -) 325 mg PO DAILY [facility] Last Admin: 05/10/17 11:01 Dose: 325 mg Atorvastatin Calcium (Lipitor -) 40 mg PO HS [facility] Last Admin: 05/09/17 23:00 Dose: 40 mg Collagenase (Santyl -) 1 applic TP DAILY [facility] Last Admin: 05/10/17 11:02 Dose: 1 applic Piperacillin Sod/Tazobactam Sod (Zosyn 3.375gm Ivpb (Pre-Docked)) 50 mls @ 100 mls/hr IVPB Q8H-IV KENDELL PRN Reason: Protocol Last Admin: 05/10/17 11:02 Dose: 100 mls/hr Insulin Aspart (Novolog Vial Sliding Scale -) 1 vial SQ ACHS KENDELL PRN Reason: Protocol Last Admin: 05/10/17 11:37 Dose: 2 units Metoprolol Tartrate (Lopressor -) 75 mg PO BID [facility] Last Admin: 05/10/17 11:01 Dose: 75 mg Nystatin (Nystop Powder -) 1 applic TP BID [facility] Last Admin: 05/10/17 11:02 Dose: 1 applic Potassium Chloride (K-Dur -) 20 meq PO DAILY [facility] Last Admin: 05/10/17 11:47 Dose: 20 meq Tamsulosin HCl (Flomax -) 0.4 mg PO DAILY@0830 [facility] Last Admin: 05/10/17 11:01 Dose: 0.4 mg - Objective Vital Signs: Vital Signs Temperature 97.4 F L 05/10/17 10:00 Pulse Rate 89 05/10/17 10:00 Respiratory Rate 18 05/10/17 10:00 Blood Pressure 122/70 05/10/17 10:00 O2 Sat by Pulse Oximetry (%) 97 05/10/17 09:00 Constitutional: Yes: Calm Eyes: Yes: Conjunctiva Clear HENT: Yes: Atraumatic Neck: Yes: Supple Cardiovascular: Yes: S1, S2 Respiratory: Yes: CTA Bilaterally Gastrointestinal: Yes: Soft Genitourinary: Yes: Andujar Present, Hematuria Edema: Yes Edema: LLE: Trace, RLE: Trace Neurological: Yes: Oriented Psychiatric: Yes: Oriented Labs: CBC, BMP 05/10/17 05:10 05/10/17 05:10 INR, PTT INR 1.35 (0.82-1.09) H 05/09/17 05:15 Problem List - Problems (1) A-fib Code(s): I48.91 - UNSPECIFIED ATRIAL FIBRILLATION Qualifiers: Atrial fibrillation type: chronic Qualified Code(s): I48.2 - Chronic atrial fibrillation (2) CHF (congestive heart failure) Code(s): I50.9 - HEART FAILURE, UNSPECIFIED Qualifiers: Congestive heart failure type: unspecified congestive heart failure type Congestive heart failure chronicity: unspecified congestive heart failure chronicity Qualified Code(s): I50.9 - Heart failure, unspecified (3) Urinary retention Code(s): R33.9 - RETENTION OF URINE, UNSPECIFIED (4) AGUSTÍN (acute kidney injury) Code(s): N17.9 - ACUTE KIDNEY FAILURE, UNSPECIFIED Assessment/Plan Current Medications Generic Name Dose Route Start Last Admin Trade Name Freq PRN Reason Stop Dose Admin Acetaminophen 650 mg 05/02/17 11:20 05/05/17 04:41 Tylenol - PO 650 mg Q6H PRN Administration FEVER OR PAIN Aspirin 325 mg 05/04/17 10:00 05/10/17 11:01 Ecotrin - PO 325 mg DAILY KENDELL Administration Atorvastatin Calcium 40 mg 05/09/17 23:00 05/09/17 23:00 Lipitor - PO 40 mg HS KENDELL Administration Collagenase 1 applic 05/04/17 10:00 05/10/17 11:02 Santyl - TP 1 applic DAILY [facility]EN[facility] Administration Piperacillin Sod/Tazobactam Sod 50 mls @ 100 mls/hr 05/07/17 16:45 05/10/17 11: 02 Zosyn 3.375gm Ivpb (Pre-Docked) IVPB 100 mls/hr Q8H-IV KENDELL Administration Protocol Insulin Aspart 1 vial 05/03/17 22:00 05/10/17 11:37 Novolog Vial Sliding Scale - SQ 2 units ACHS KENDELL Administration Protocol Metoprolol Tartrate 75 mg 05/05/17 12:15 05/10/17 11:01 Lopressor - PO 75 mg BID [facility]ENDELL Administration Nystatin 1 applic 05/04/17 22:00 05/10/17 11:02 Nystop Powder - TP 1 applic BID KENDELL Administration Potassium Chloride 20 meq 05/03/17 10:00 05/10/17 11:47 K-Dur - PO 20 meq DAILY [facility] Administration Tamsulosin HCl 0.4 mg 05/07/17 08:30 05/10/17 11:01 Flomax - PO 0.4 mg DAILY@0830 [facility]EN[facility]LL Administration Impression 1. AGUSTÍN likely from obstruction 2. a-fib 3. HTN 4. cellulitis 5. obstructive uropathy - 900 cc on bladder scan 6. BPH 7. CHF 8. DM Plan - will restart gentle hydration - urology follow up - flush andujar if urine output decreases, may need CBI - avoid nsaids - repeat labs in am - monitor potassium as he is on potassium supplements - etiology miladys obstructive uropathy - will follow
[2017-05-10] MEDS: SODIUM CHLORIDE 0.45% 1,000 ML IV SCH (13:47)
--- NOTE | 2017-05-10 15:43 | PN ---
Physical Exam: SUBJECTIVE: Patient seen and examined at bedside this morning. No complaints. Patient mentioned he slept very well last night. Feels better. Denies chest pain , sob, cough, palpitation, abdominal pain, nausea or vomiting. No acute overnight events. OBJECTIVE: Vital Signs Period Temp Pulse Resp BP Sys/Vásquez Pulse Ox Last 24 Hr 96.3 F-97.9 F 77-93 16-18 104-130/64-75 96-97 GENERAL: Elderly male, sitting in a chair, anxious, is awake, alert, and fully oriented, in no acute distress, andujar catheter in place draining red colored urine. HEAD: Normal with no signs of trauma. EYES: EOM intact, no pallor or icterus. ENT: Ears normal, moist mucous membranes. NECK: Supple. LUNGS: Breath sounds equal, clear to auscultation bilaterally, no wheezes, no crackles, no accessory muscle use. HEART: Regular rate and rhythm, S1, S2 without murmur, rub or gallop. ABDOMEN: Ventral hernia, Soft, nontender, nondistended, normoactive bowel sounds , no guarding, no rebound, no hepatosplenomegaly, no masses. UPPER EXTREMITIES: 2+ pulses, warm, well-perfused, no edema. LOWER EXTREMITIES: Right: Blister on the right base of the foot, ruptured blisters on the tee area. Dressing reapplied. Left: Erythema below the knee upto the ankle- improving, mildly tender, blisters +, raised temperature, pulses intact +, ulcer at the base of the left great toe, minimal drainage, non erythematous. NEUROLOGICAL: Forgetful, No facial droop, Power upper extremity-5/5; lower extremity- 3/5 B/L; Cranial nerves II through XII grossly intact. Normal speech , gait not observed. PSYCH: Normal mood, normal affect. SKIN: Warm, dry, normal turgor, no rashes or lesions noted Laboratory Results - last 24 hr 05/09/17 05/09/17 05/10/17 17:08 21:35 05:10 WBC 7.0 D RBC 3.78 L Hgb 10.3 L D Hct 31.9 L MCV 84.4 MCHC 32.2 RDW 16.0 H Plt Count 82 L D MPV 9.7 Neutrophils % 72.8 Lymphocytes % 11.2 D Monocytes % 14.0 H D Eosinophils % 1.8 D Basophils % 0.2 Sodium Potassium Chloride Carbon Dioxide Anion Gap BUN Creatinine Creat Clearance w eGFR POC Glucometer 160.78777 157.21086 Random Glucose Calcium Magnesium Total Bilirubin AST ALT Alkaline Phosphatase Total Protein Albumin 05/10/17 05/10/17 05/10/17 05:10 05:51 11:24 WBC RBC Hgb Hct MCV MCHC RDW Plt Count MPV Neutrophils % Lymphocytes % Monocytes % Eosinophils % Basophils % Sodium 137 Potassium 3.8 Chloride 99 Carbon Dioxide 30 Anion Gap 8 BUN 32 H Creatinine 1.5 H D Creat Clearance w eGFR 45.87 POC Glucometer 110.27110 157.67840 Random Glucose 89 D Calcium 8.0 L Magnesium 2.0 Total Bilirubin 1.3 H AST 28 ALT 8 L D Alkaline Phosphatase 77 Total Protein 5.5 L Albumin 2.3 L Active Medications Generic Name Dose Route Start Last Admin Trade Name Freq PRN Reason Stop Dose Admin Acetaminophen 650 mg 05/02/17 11:20 05/05/17 04:41 Tylenol - PO 650 mg Q6H PRN Administration FEVER OR PAIN Aspirin 325 mg 05/04/17 10:00 05/10/17 11:01 Ecotrin - PO 325 mg DAILY [facility]EN[facility]LL Administration Atorvastatin Calcium 40 mg 05/09/17 23:00 05/09/17 23:00 Lipitor - PO 40 mg HS KENDELL Administration Collagenase 1 applic 05/04/17 10:00 05/10/17 11:02 Santyl - TP 1 applic DAILY [facility] Administration Piperacillin Sod/Tazobactam Sod 50 mls @ 100 mls/hr 05/07/17 16:45 05/10/17 11: 02 Zosyn 3.375gm Ivpb (Pre-Docked) IVPB 100 mls/hr Q8H-IV KENDELL Administration Protocol Sodium Chloride 1,000 mls @ 70 mls/hr 05/10/17 13:45 05/10/17 13:47 1/2 Normal Saline IV 70 mls/hr ASDIR KENDELL Administration Insulin Aspart 1 vial 05/03/17 22:00 05/10/17 11:37 Novolog Vial Sliding Scale - SQ 2 units ACHS KENDELL Administration Protocol Metoprolol Tartrate 75 mg 05/05/17 12:15 05/10/17 11:01 Lopressor - PO 75 mg BID KENDELL Administration Nystatin 1 applic 05/04/17 22:00 05/10/17 11:02 Nystop Powder - TP 1 applic BID [facility]EN[facility]LL Administration Potassium Chloride 20 meq 05/03/17 10:00 05/10/17 11:47 K-Dur - PO 20 meq DAILY [facility]ENDELL Administration Tamsulosin HCl 0.4 mg 05/07/17 08:30 05/10/17 11:01 Flomax - PO 0.4 mg DAILY@0830 KEN[facility]LL Administration ASSESSMENT/PLAN: Patient is a 71 year old male with past medical history of history of Afib ( previously on Xarelto and Lopressor; has not taken them since 2014), HTN, CAD s/ p one stent at [facility] approx 15 yrs ago, and CHF (unknown type) admitted for evaluation of left lower extremity redness. # Hematuria likely due to trauma during manipulation while placing a andujar- patient was on Lovenox Still has hematuria, Output 24 hours 370mls Lovenox has been discontinued Yesterday, Urologist irrigated the andujar draining out 600 cc out dark urine with blood # AGUSTÍN likely post renal cause-obstructive vs intrarenal- Improved Creatinine 1.9--->1.5 improved after placing andujar, IV hydration, Avoided NSAIDs Continue IV 1/2NS @ 70mls.hr Patient takes Motrin PM every night for sleep, advised to avoid it. # Cellulitis of the left lower extremity with osteomyelitis of the left great toe Confirmed on bone scan ( 05/03/17) Wound culture grew Gm negative Lactose non fermenting organism (likely skin seymour) Continue IV Cefazolin 2gm Day 4 Collagenase TP Daily-wound Once patient is stable, would consider bone biopsy. Physical therapy # Increased Troponin: NSTEMI - Transfer to lab pack chemist tomorrow at [facility] between 8-8:30am. Admitted in Tele. Continuous cardiac monitoring, no acute changes Lovenox on hold due to massive hematuria Aspirin 325mg PO Daily # Atrial fibrillation-rate uncontrolled Metoprolol 75 mg BID. Patient was On Xarelto 20mg PO Daily at home (last picked up the medication from [facility] on 2014) # Hypertension-not controlled Lisinopril 10mg PO BID # Hyperthyroidism TSH 0.34; T4-1.74; Free T3-pending. F/up with line cleaner outpatient. # Anxiety/ sleep disturbance Patient said that he takes Motrin PM every night for sleep. Advised patient not to take it daily as it may cause AGUSTÍN. Benadryl 25mg PO PRN HS Counseling. # Depression: c/o sad; depressed. Psyc consult appreciated: no medication at this time, psych to follow # Newly diagnosed DM HbA1c 7.1 Insulin sliding scale Finger stick glucose Diabetic diet # CHF Hold Lasix 40mg IV Daily due to AGUSTÍN Strict I's and O's Daily Weight Echo: Left ventricular systolic function normal, Mild pulmonary HTN # Hypokalemia K-Dur 20 mEq daily # Thrombocytopenia Monitor platelets as patient is on Lovenox # FEN IV 1/2 NS @ 70mls.hr Electrolytes Diabetic/sodium controlled diet; NPO after midnight. Cath to be done tomorrow at 10:30am, transportation will arrive at 8-8:30 am. # Prophylaxis For DVT: Anticoagulation contraindicated due to massive hematuria. For GI: Not indicated # Code Status: Full Code # Dispo: Admitted in Tele. Duration of stay unknown. Called pharmacy- patient is non compliant. Illness, Investigation and Plan of care explained to the patient and his sister. Call placed to patients sister Ms. Josiane Whitlock [phone]. They verbalized understanding. Case seen and discussed with Dr. Hernandez. Visit type - Emergency Visit Emergency Visit: Yes ED Registration Date: 05/02/17 Care time: The patient presented to the Emergency Department on the above date and was hospitalized for further evaluation of their emergent condition. - New Patient This patient is new to me today: No - Critical Care Critical Care patient: No
--- NOTE | 2017-05-10 17:26 | PN ---
Teaching Attending Note Name of Resident: Richa Forde ATTENDING PHYSICIAN STATEMENT I saw and evaluated the patient. I reviewed the resident's note and discussed the case with the resident. I agree with the resident's findings and plan as documented. SUBJECTIVE: no fever or chills, has no CP. no SOB OBJECTIVE: NAD. CV:irreg irreg . lungs: CTAB, decreased breath sounds at bases Ext : 1+ edema . abrasion on R medial lower leg , with no discharge , has 2 small ( 1 cm ) ulcers with exudate . R big two with deep ulcer on plantar aspect , with no discharge . DP 1+ B/L no JVD ASSESSMENT AND PLAN: 71 year-old man with PMH of HTN, CAD s/p stent x 1, afib, and diastolic heart failure. who presented with palpitations , Afib with RVR , was found to have L great toe OM and AGUSTÍN with urinary retention and hematuria 1- NSTEMI: with positive stress test off lovenox , due to bleed cont ASa and statin d/w his loading manager , by team, accepted to [facility] for a cath tomorrow . will confirm with transfer center cont BB 2- L great toe OM : cx noted cont Zosyn for total of 6 weeks 3- AGUSTÍN : likely due to obstruction . Cr has improved cont andujar irrgat PRN for hematuria cont to have hematuria due to trauma while inserting the andujar 4- A fib with RVR : cont BB holding AC due to bleeding 5- DM : SSI Dispo : for transfer to [facility] tomorrow for cath
[2017-05-10] MEDS ORDERED: LORazepam 1 MG TABLET PO ONE (21:57)
[2017-05-10] MEDS: ATORVASTATIN CA 20 MG TABLET (FP) PO SCH (22:11)
[2017-05-11] MEDS: PIPERACILLIN/TAZOB 3.375 GM 50 ML IVPB SCH (01:48)
[2017-05-11] MEDS: SODIUM CHLORIDE 0.45% 1,000 ML IV SCH (02:11)
[2017-05-11 05:29] VITALS: TEMP 97
[2017-05-11] MEDS: INSULIN SLIDING SCALE (NOVOLOG) 1 VIAL SQ SCH (06:06)
[2017-05-11 06:34] LABS: MCH 27.5 pg (25.7-33.7); MCHC 32.5 g/dl (32.0-35.9); MEAN CELL VOLUME 84.4 fl (80-96); MEAN PLT VOLUME 10.2 fl (7.5-11.1); PLATELET COUNT 99 K/MM3 (134-434); RDW 15.8 % (11.9-15.9); WHITE BLOOD COUNT 6.7 K/mm3 (4.0-10.0)
[2017-05-11 06:43] LABS: INR 1.22 (0.82-1.09); PROTHROMBIN TIME (PATIENT) 13.5 SEC (9.98-11.88)
[2017-05-11 07:02] LABS: ANION GAP 8 (8-16); CALCIUM 8.1 mg/dL (8.5-10.1); CO2 27 mmol/L (21-32); CREATININE 1.1 mg/dL (0.7-1.3); GLUCOSE,RANDOM 111 mg/dL (74-106)
--- NOTE | 2017-05-11 07:43 | PN ---
Teaching Attending Note Name of Resident: Richa Forde ATTENDING PHYSICIAN STATEMENT I saw and evaluated the patient. I reviewed the resident's note and discussed the case with the resident. I agree with the resident's findings and plan as documented. SUBJECTIVE: no fever ro chills, has slept well. Denies any cp or Abd pain. no SOB . OBJECTIVE: NAD. CV:irreg irreg . lungs: CTAB, decreased breath sounds at bases Ext : 1+ edema . abrasion on R medial lower leg , with no discharge , has 2 small ( 1 cm ) ulcers with exudate . R big two with deep ulcer on plantar aspect , with no discharge . DP 1+ B/L no JVD ASSESSMENT AND PLAN: 71 year-old man with PMH of HTN, CAD s/p stent x 1, afib, and diastolic heart failure. who presented with palpitations , Afib with RVR , was found to have L great toe OM and AGUSTÍN with urinary retention and hematuria 1- NSTEMI: with positive stress test off lovenox , due to bleed cont ASA and statin cont BB scheduled for transfer to [facility] this am 2- L great toe OM : cont Zosyn for total of 6 weeks 3- AGUSTÍN : likely due to obstruction . Cr has improved cont andujar irrgate PRN for hematuria cont to have hematuria due to trauma while inserting the andujar now on IVF , but it can be Dc after procedure 4- A fib with RVR :now HR in 70s . cont BB holding AC due to bleeding 5- Newly diagnosed DM : SSI now will need to be started on oral hypoglycemics at dc Dispo : for transfer to [facility] this am for cath
[2017-05-11 08:42] VITALS: BP 132/87; PULSE 74
[2017-05-11] MEDS: TAMSULOSIN HCL 0.4 MG CAP.ER.24H (FP) PO SCH (08:46)
--- NOTE | 2017-05-11 12:46 | DS ---
Physical Exam: SUBJECTIVE: Patient seen and examined at bed side this morning. No complaints. Denies chest pain, sob, cough, palpitation, abdominal pain, nausea or vomiting. No acute overnight events. OBJECTIVE: Vital Signs Period Temp Pulse Resp BP Sys/Vásquez Pulse Ox Last 24 Hr 97 F-98.6 F 65-91 16-20 94-132/55-90 98-99 PHYSICAL EXAM GENERAL: Elderly male, sitting in a chair, anxious, is awake, alert, and fully oriented, in no acute distress, andujar catheter in place draining red colored urine. HEAD: Normal with no signs of trauma. EYES: EOM intact, no pallor or icterus. ENT: Ears normal, moist mucous membranes. NECK: Supple. LUNGS: Breath sounds equal, clear to auscultation bilaterally, no wheezes, no crackles, no accessory muscle use. HEART: Regular rate and rhythm, S1, S2 without murmur, rub or gallop. ABDOMEN: Ventral hernia, Soft, nontender, nondistended, normoactive bowel sounds , no guarding, no rebound, no hepatosplenomegaly, no masses. UPPER EXTREMITIES: 2+ pulses, warm, well-perfused, no edema. LOWER EXTREMITIES: Right: Blister on the right base of the foot, ruptured blisters on the tee area. Dressing reapplied. Left: Erythema below the knee upto the ankle- improving, mildly tender, blisters +, raised temperature, pulses intact +, ulcer at the base of the left great toe, minimal drainage, non erythematous. NEUROLOGICAL: Forgetful, No facial droop, Power upper extremity-5/5; lower extremity- 3/5 B/L; Cranial nerves II through XII grossly intact. Normal speech , gait not observed. PSYCH: Normal mood, normal affect. SKIN: Warm, dry, normal turgor, no rashes or lesions noted LABS Laboratory Results - last 24 hr 05/10/17 05/10/17 05/11/17 17:44 21:44 05:15 WBC 6.7 RBC 3.60 L Hgb 9.9 L Hct 30.4 L MCV 84.4 MCHC 32.5 RDW 15.8 Plt Count 99 L D MPV 10.2 INR Sodium Potassium Chloride Carbon Dioxide Anion Gap BUN Creatinine POC Glucometer 135.69692 171.41178 Random Glucose Calcium 05/11/17 05/11/1717 05:15 05:15 05:45 WBC RBC Hgb Hct MCV MCHC RDW Plt Count MPV INR 1.22 H Sodium 137 Potassium 4.1 Chloride 102 Carbon Dioxide 27 Anion Gap 8 BUN 27 H Creatinine 1.1 D POC Glucometer 114.51358 Random Glucose 111 H D Calcium 8.1 L Microbiology 05/04/17 12:30 Toe - Left Hallux Gram Stain - Final 05/04/17 12:30 Toe - Left Hallux Wound Culture - Final Pseudomonas Aeruginosa Enterococcus Faecalis Diphtheroid/Corynebacterium 05/02/17 15:31 Blood - Peripheral Venous Blood Culture - Final NO GROWTH AFTER 5 DAYS INCUBATION 05/02/17 15:31 Blood - Peripheral Venous Blood Culture - Final NO GROWTH AFTER 5 DAYS INCUBATION 05/03/17 03:28 Urine - Urine Clean Catch Urine Culture - Final NO GROWTH OBTAINED HOSPITAL COURSE: Date of Admission:05/02/17 Date of Discharge: 05/11/17 Patient is a 71 year old male with past medical history of history of Afib ( previously on Xarelto and Lopressor; has not taken them since 2014), HTN, CAD s/ p one stent at [facility] approx 15 yrs ago, and CHF admitted for evaluation of left lower extremity redness. Patient was admitted for evaluation and treatment of Cellulitis of left lower extremity with osteomyelitis of the left great toe Confirmed on bone scan ( 05/03/17). Wound culture grew Gm negative Lactose non fermenting organism (likely skin seymour). Was given IV Cefazolin and later treated with IV Zosyn 3.375gm. Sepsis resolved. He also had increased troponins (was trending down) for which Echo ( Echo 2016: Left ventricular systolic function normal, Mild pulmonary HTN) and stress test (05/05/2017) was done which showed anterior wall ischemia with a EF of 29 % . Patient's oyster culler Dr. Jones was reached who made arrangements to do the cath at [facility] today 05/11/17 at 10:30am. The transportation came and picked him up this morning at 8:30am. For NSTEMI, he was admitted in Tele with continuous cardiac monitoring, no acute changes he was started on Lovenox 120mg BID. However he started having massive hematuria after placing andujar and Lovenox was stopped. Aspirin 325mg PO Daily was continued. Hematuria likely due to trauma during manipulation while placing a andujar- ( patient was on Lovenox at that time). Still has hematuria but it looks less darker now. Urologist was consulted, irrigated the andujar draining out 600 cc out dark urine with blood around 2 days ago. Lovenox has been discontinued. AGUSTÍN likely post renal as creatinine improved after placing andujar, IV hydration, Avoided NSAIDs. Recommended patient not to continue taking Motrin PM every night for sleep which he takes at home. Atrial fibrillation-rate uncontrolled. Continued Metoprolol 75 mg BID. Patient was On Xarelto 20mg PO Daily at home (last picked up the medication from [facility] on 2014). Patient is non compliant, hasn't seen the oyster culler in 2 years and is not taking his daily medications. Hypertension-not controlled. Continued Lisinopril 10mg PO BID Hyperthyroidism : TSH 0.34; T4-1.74. Recommended to F/up with salary and wage administrator outpatient. Newly diagnosed DM; HbA1c 7.1; Insulin sliding scale; Finger stick glucose; Diabetic diet Hypokalemia- K-Dur 20 mEq daily Thrombocytopenia: No transfusion was given during this admission. Plan of care explained to the patient and his sister. Call placed to patients sister Ms. Josiane Whitlock [phone]. They verbalized understanding. Case discussed with Dr. Hernandez. Minutes to complete discharge: 45 Discharge Summary Reason For Visit: CONGESTIVE HEART FAILURE/ATRIAL FIBRILLATION/ ELEV Condition: Stable - Instructions Diet, Activity, Other Instructions: You were admitted for evaluation of the lower extremity redness and swelling. Further investigation suggested that you have an osteomyelitis of the left foot for which you were receiving IV Cefazolin 2gm. You will need weeks of IV antibiotics. Since the cardiac stress test came positive, we are transfering you to hospital for cardiac catheterization. Once you get discharged please be compliant with your mediation. It is very important you take the prescribed medication daily. Referrals: Anand Jones [Primary Care Provider] - Aleah Sharma MD [Staff Physician] - Disposition: TRANSFER ACUTE CARE/OTHER HOSP - Home Medications Comprehensive Discharge Medication List: Ambulatory Orders Aspirin Coated [Ecotrin -] 325 mg PO DAILY tab 05/11/17 Atorvastatin Ca [Lipitor] 40 mg PO HS tablet 05/11/17 Collagenase Clostridium Hist. [Santyl -] 1 applic TP DAILY tube 05/11/17 Insulin Sliding Scale [Novolog Vial Sliding Scale -] 1 vial SQ ACHS units 05/11 Metoprolol Tartrate [Lopressor -] 75 mg PO BID tablet 05/11/17 Nystatin Powder [Nystop Powder -] 1 applic TP BID applic 05/11/17 Piperacillin/Tazob 3.375 gm [Zosyn 3.375GM Ivpb (Pre-Docked)] 50 ml IVPB Q8H-IV bag 05/11/17 Potassium Chloride [K-Dur -] 20 meq PO DAILY tab 05/11/17 Tamsulosin HCl [Flomax -] 0.4 mg PO DAILY@0830 tab 05/11/17 This patient is new to me today: No Emergency Visit: Yes ED Registration Date: 05/02/17 Care time: The patient presented to the Emergency Department on the above date and was hospitalized for further evaluation of their emergent condition. Critical Care patient: No - Discharge Referral Referred to [facility] No
== END 2017-05-11 08:30 | disposition short-term general hospital (02) | DRG 280 ==
LOC: JER 08:02 → JERBED 11:21 → J4S 05-03 00:26 → J2W 05-04 09:04 → JICU 05-04 09:26 → J2W 05-04 09:31
PROVIDERS: ADMIT Internal Medicine; ATTEND Internal Medicine
DX: I21.4 Non-ST elevation (NSTEMI) myocardial infarction (principal); I50.33 Acute on chronic diastolic (congestive) heart failure; A41.9 Sepsis, unspecified organism; L03.116 Cellulitis of left lower limb; N17.9 Acute kidney failure, unspecified; I47.1 Supraventricular tachycardia; N39.0 Urinary tract infection, site not specified; M86.172 Other acute osteomyelitis, left ankle and foot; L97.829 Non-pressure chronic ulcer of other part of left lower leg with unspecified severity; I48.91 Unspecified atrial fibrillation; E11.9 Type 2 diabetes mellitus without complications; I25.10 Atherosclerotic heart disease of native coronary artery without angina pectoris; Z98.61 Coronary angioplasty status; I27.2 Other secondary pulmonary hypertension; E05.90 Thyrotoxicosis, unspecified without thyrotoxic crisis or storm; E87.6 Hypokalemia; D69.6 Thrombocytopenia, unspecified; F41.9 Anxiety disorder, unspecified; F32.9 Major depressive disorder, single episode, unspecified; Z91.14 Patient's other noncompliance with medication regimen; N40.1 Benign prostatic hyperplasia with lower urinary tract symptoms; R33.8 Other retention of urine; R31.0 Gross hematuria; N13.9 Obstructive and reflux uropathy, unspecified; I11.0 Hypertensive heart disease with heart failure; D72.829 Elevated white blood cell count, unspecified
CPT/HCPCS: 36415; 71010-TC; 71020-TC; 73630-TC-LT; 76775-TC; 78315-TC; 78452-TC; 80048; 80053; 80061; 81003; 81015; 82550; 82553; 83036; 83721; 83735; 83880; 84100; 84439; 84443; 84481; 84484; 85025; 85027; 85610; 85651; 86140; 86850; 86900; 86901; 87040; 87070; 87086; 87186; 87205; 93005; 93010; 93017; 93306-TC; 93923; 93970-TC; 97116-GP; 97161-GP; 99285-25; A9502; A9503; J1245